=== PATIENT | female | born 1940 | race Caucasian/White ===

== ENCOUNTER 2017-09-05 13:03 | Inpatient (IN) | payer MEDICARE, OTHER, SELFPAY ==
[2017-09-05] VITALS (11 sets, daily range): BP systolic 165–192; BP diastolic 79–92; PULSE 75–103; RESP 13–20; TEMP 36.6–37; O2SAT 94–98; BMI 27.4; BMI 27.3; BMI 27.6
--- NOTE | 2017-09-05 13:37 | CT_ITS ---
STUDY: CT BRAIN WITHOUT CONTRAST REASON FOR EXAM: Female, 77 years old. Left-sided weakness. Stroke like symptoms. RADIATION DOSAGE (If Supplied By Facility): CTDIvol = ( 44.99 ) mGy, DLP = ( 762.36 ) mGycm TECHNIQUE: Transaxial CT imaging of the brain was performed without administration of intravenous contrast material. Individualized dose optimization techniques were used for this CT. COMPARISON: None. FINDINGS: Normal soft tissue structures. There is hyperostosis frontalis internus. There is mild cerebral atrophy with widening of the extra-axial spaces and ventricular dilatation. Normal white matter tracts of the cerebral hemispheres. Normal basal ganglia and thalami. Normal brainstem. Normal cerebellum. There is no intracranial hemorrhage. There are no findings of an acute ischemic infarction. Normal visualized paranasal sinuses. CT/Brain/Head without Contrast IMPRESSION: Chronic involutional changes of the brain. Electronically Signed: Jake Wayne MD at 14:30 EDT Tel [phone], Service support ,
--- NOTE | 2017-09-05 13:37 | EKG12_ITS ---
Test Reason : BLEEDING Blood Pressure : / mmHG Vent. Rate : 096 BPM Atrial Rate : 096 BPM P-R Int : 172 ms QRS Dur : 094 ms QT Int : 358 ms P-R-T Axes : 062 004 054 degrees QTc Int : 452 ms Sinus rhythm with Premature atrial complexes Inferior infarct , age undetermined Abnormal ECG Confirmed by LEANDER ATKINSON ([id number]), food editor MICHAEL RUBALCAVA ([id number]) on 09/08/2017 10:24:10 AM Referred By: MINNIE Confirmed By:LEANDER ATKINSON
--- NOTE | 2017-09-05 13:46 | NURSING ---
NO OLD EKGS
[2017-09-05 13:55] LABS: Bedside Glucose 205 mg/dL (70-110)
[2017-09-05 14:02] LABS: Absolute Lymphocyte Count 0.78 X10^3/ul (0.83-4.51); Absolute Neutrophil Count 8.1 X10^3/uL (2.0-7.7); Basophil# 0.01 X10^3/uL; Basophil% 0.1 % (0-1); Hematocrit 42.1 % (37-47); Hemoglobin 14.3 g/dl (12.0-15.0); Lymphocyte # 0.78 X10^3/ul (4.0); Lymphocyte % 8.7 % (19-41); Mean Corpuscular Hgb 29.3 pg (27.0-32.0); Mean Corpuscular Volume 86.3 fL (81-99); Mean Platelet Vol. 9.9 fl (6.2-12.0); Monocyte# 0.11 X10^3/uL; Monocyte% 1.2 % (0-10); Neutrophil # 8.05 X10^3/uL (2.7-7.7); Neutrophil % 89.8 % (47-70); Platelet Count 362 K/mm3 (150-450); RBC Distribution Width CV 12.6 % (11.6-14.6); RBC Distribution Width SD 39.1 fl (35.1-43.9); Red Blood Count 4.88 M/mm3 (4.2-5.4)
[2017-09-05 14:03] LABS: POSITIVE COUNT NO; POSITIVE DIFFERENTIAL NO; POSITIVE MORPHOLOGY NO
[2017-09-05 14:10] LABS: Prothrombin Time (Protime)PT. 13.5 SECONDS (11.7-14.9)
[2017-09-05 14:11] LABS: Partial Thromboplast Time 28.2 Seconds (24.1-36.2)
[2017-09-05 14:25] LABS: Anion Gap 9 (5-15); BUN 19 mg/dL (7-18); BUN/Creat Ratio 19.9 RATIO (10-20); Calcium,Total 9.2 mg/dL (8.5-10.1); Chloride 109 mmol/L (98-107); Creatinine, Serum 0.96 mg/dL (0.55-1.02); EST Glomerular Filtration Rate 60 mL/min (>60); Est Glom Filt Rate - Afr Amer 73 mL/min (>60); Estimated Creatinine Clearance 43.05 ml/min; Glucose 196 mg/dL (74-106); Potassium 3.1 mmol/L (3.5-5.1); Sodium Level 141 mmol/L (136-145)
--- NOTE | 2017-09-05 14:29 | ED.VISSUMM ---
- ER Visit Summary Date of Service: 09/05/17 Chief Complaint: Brain bleeding History of Present Illness: The patient is a 77 F who tells me that she has bleeding in her brain. One week ago she started with left-sided numbness. She denied any slurred speech, facial droop or weakness of any of her extremities. She saw her PCP as an outpatient who ordered an MRI. This was completed this morning. They called her and told her that she had brain bleeding that she needed to go to the emergency department. She still has some numbness on the left-hand side. She does take a baby aspirin daily. Physical Examination: Vital signs reviewed. HEENT exam unremarkable. Heart is regular rate and rhythm without murmurs. Lungs are clear to auscultation. Abdomen is soft and nontender. Extremities reveal no edema. Skin exam normal. Neurologic exam shows decreased sensation of the left side. Her NIH stroke scale equals 1 for the sensation deficits. Test Results: He is normal sinus rhythm with rate of 96. No ST changes. CT of the head is chronic. Labs are unremarkable. Emergency Department Course and Treatment: I was able to receive the report of the MRI. It actually shows a right thalamic infarct. There is no bleed. I discussed this with neurology. He states the patient needs an MRA of the head and neck. Patient was discussed with the hospitalist for admission. Treatment Plan: [] Disposition: Admit Impression: Acute right thalamic infarct This note was generated with [employer] dictation software. It may contain incorrect words, spelling, and punctuation that were not noted in review of the chart prior to signing ED Disposition - Plan for ED Patient: Chief Complaint: General Illness Referrals: [facility] Doctor,Out of [NON-STAFF] -
--- NOTE | 2017-09-05 15:09 | NURSING ---
NEUROLOGY IN ROOM
--- NOTE | 2017-09-05 15:25 | NURSING ---
PCU ACUTE RIGHT THALAMIC INFARCT TIMOTHY
--- NOTE | 2017-09-05 15:36 | PCM.CONS.GEN ---
Problem List (1) Stroke Status: Acute Qualifiers: CVA mechanism: thrombosis Precerebral and cerebral artery: posterior cerebral artery Laterality of affected vessel: right Qualified Code(s): I63.331 - Cerebral infarction due to thrombosis of right posterior cerebral artery (2) Numbness Status: Acute Reason for Consult Date of Consultation: 09/05/17 Reason for Consultation: Stroke History of Present Illness: The patient is a 77 year old CF with PMH HTN, HLD (was on niacin in the past) admitted with left sided numbness. Per patient her left sided numbness started about 5 days ago, went to the machine tool operator who sees her for BP issues, ordered MRI brain, which was done today (09/05/17) at [facility] and reported to show acute right thalamic infarct (images not available for review). Per patient she had Carotid ultrasound and TTE done this morning at [facility] but the report of the same are not available. At present per patient her left sided numbness has been getting better, denies any focal motor weakness, visual disturbances, but does complaint of frontal HARMAN which was has been persistent for the last few days, denies any vision loss, temporal tenderness or jaw claudication. Takes ASA at home daily. Denies any neck pain, lower back pain or radicular symptoms. Denies any falls, denies any balance issue, does not use cane or walker to ambulate, does not need assistance for his ADLs, and does drive. [] Past Medical History Allergies shellfish derived Allergy (Verified 09/05/17 13:09) Swelling Home Medications: Ambulatory Orders Medication Instructions Recorded Aspirin [Aspir-Low] 81 mg PO DAILY 09/05/17 Irbesartan [Avapro] 300 mg PO DAILY 09/05/17 Metoprolol Tartrate [Lopressor 25 mg PO DAILY 09/05/17 (beta valery)] Lives: Spouse/ Significant Other Smoking Status: Never smoker Alcohol: None Drugs: None Review of Systems Constitutional: Reports: - - complete ROS negative except as documented in HPI Patient Problems: Active and Suspected Problems Stroke (Acute) Numbness (Acute) - Physical Exam General: Alert HEENT: Normocephalic Neck: Supple Lungs: Clear to auscultation Cardiovascular: Normal S1, Normal S2 Abdomen: Bowel Sounds Present Extremities: No cyanosis Skin: No rashes Musculoskeletal: No Tenderness to Palpation of Joints or Extremities Neurological: - - consious, alert, CN 2-12 grossly intact except left facial mild sensory loss, power 5/5 all 4 extremities, mild sensory loss to the left side on light touch/temperature, no cerebellar signs, gait deferred, Reflexes + B/L B/S/T/K/A, NIHSS 2 at present, mRS 0 at baseline. Vital Signs Temp Pulse Resp BP Pulse Ox 98.4 F 83 14 186/92 H 94 09/05/17 13:07 09/05/17 15:27 09/05/17 15:27 09/05/17 15:27 09/05/17 15:27 Oxygen Flow Rate (L/min) 2 Oxygen Delivery Method Room Air Weight: 72.575 kg Body Mass Index (BMI) 27.4 Finger Stick Blood Glucose 205 Laboratory Tests Past 24 Hrs 09/05/17 09/05/17 09/05/17 13:50 13:50 13:50 WBC 9.0 RBC 4.88 Hgb 14.3 Hct 42.1 MCV 86.3 MCH 29.3 MCHC 34.0 RDW 12.6 RDW Differential 39.1 Plt Count 362 MPV 9.9 Immature Gran % (Auto) 0.200 Neut % (Auto) 89.8 H Lymph % (Auto) 8.7 L [place] % (Auto) 1.2 Eos % (Auto) 0.0 Baso % (Auto) 0.1 Absolute Neuts (auto) 8.1 H Absolute Lymphs (auto) 0.78 L Total Counted Not Reportable PT 13.5 INR 1.0 APTT 28.2 Sodium 141 Potassium 3.1 L Chloride 109 H Carbon Dioxide 23.0 Anion Gap 9 BUN 19 H Creatinine 0.96 Estim Creat Clear Calc 43.05 Est GFR (MDRD) Af Amer 73 Est GFR (MDRD) Non-Af 60 BUN/Creatinine Ratio 19.9 Glucose 196 H Calcium 9.2 Troponin I < 0.015 POC Glucose 09/05/17 13:50 POC Glucose 205 H Assessment/Plan All Active Problems Stroke (Acute) Numbness (Acute) The patient is a 77 year old CF with PMH HTN, HLD (was on niacin in the past) admitted with left sided numbness. Per patient her left sided numbness started about 5 days ago, went to the machine tool operator who sees her for BP issues, ordered MRI brain, which was done today (09/05/17) at [facility] and reported to show acute right thalamic infarct (images not available for review). Per patient she had Carotid ultrasound and TTE done this morning at [facility] but the report of the same are not available. At present per patient her left sided numbness has been getting better, denies any focal motor weakness, visual disturbances, but does complaint of frontal HARMAN which was has been persistent for the last few days, denies any vision loss, temporal tenderness or jaw claudication. Takes ASA at home daily. Denies any neck pain, lower back pain or radicular symptoms. Denies any falls, denies any balance issue, does not use cane or walker to ambulate, does not need assistance for his ADLs, and does drive. Impression Acute Right Thalamic stroke Plan -On ASA 81 mg PO once daily. Add Plavix 75 mg PO once daily. Dual AP for 3 weeks, then switch to single AP. Bleeding risks discussed in detail with the patient -Recommend Lipitor 80 mg PO q hs -Recommend MRA head/neck -Obtain TTE and Carotid ultrasound results from [facility] -Recommend LDL and Hba1c -Permissive HTN till vessel imaging is obtained -[facility] goal BP < 130/80 mmHg and Goal Hba1c < 7% -Stroke risk factors discussed and stroke education provided -Frequent neuro checks -Patient to be admitted to PCU -Further medical care per primary team. -PT/OT -GI/DVT prophylaxis -Fall precautions -Follow up with Neurology as outpatient in 2 weeks after discharge -Please call with questions -Thank you for allowing us to participate in patient's care and management I spent 60 minutes of critical care time taking history, doing physical examination, reviewing medical records, coordinating care and counseling the patient. Code Visit Inpatient E&M: 00467 Init Hosp L3
--- NOTE | 2017-09-05 15:47 | CON.PCM_ITS ---
Problem List (1) Stroke Status: Acute Qualifiers: CVA mechanism: thrombosis Precerebral and cerebral artery: posterior cerebral artery Laterality of affected vessel: right Qualified Code(s): I63.331 - Cerebral infarction due to thrombosis of right posterior cerebral artery (2) Numbness Status: Acute Reason for Consult Date of Consultation: 09/05/17 Reason for Consultation: Stroke History of Present Illness: The patient is a 77 year old CF with PMH HTN, HLD (was on niacin in the past) admitted with left sided numbness. Per patient her left sided numbness started about 5 days ago, went to the rug inspector helper who sees her for BP issues, ordered MRI brain, which was done today (09/05/17) at [facility] and reported to show acute right thalamic infarct (images not available for review). Per patient she had Carotid ultrasound and TTE done this morning at [facility] but the report of the same are not available. At present per patient her left sided numbness has been getting better, denies any focal motor weakness, visual disturbances, but does complaint of frontal HARMAN which was has been persistent for the last few days, denies any vision loss, temporal tenderness or jaw claudication. Takes ASA at home daily. Denies any neck pain, lower back pain or radicular symptoms. Denies any falls, denies any balance issue, does not use cane or walker to ambulate, does not need assistance for his ADLs, and does drive. [] Past Medical History Allergies shellfish derived Allergy (Verified 09/05/17 13:09) Swelling Home Medications: Ambulatory Orders Medication Instructions Recorded Aspirin [Aspir-Low] 81 mg PO DAILY 09/05/17 Irbesartan [Avapro] 300 mg PO DAILY 09/05/17 Metoprolol Tartrate [Lopressor 25 mg PO DAILY 09/05/17 (beta valery)] Lives: Spouse/ Significant Other Smoking Status: Never smoker Alcohol: None Drugs: None Review of Systems Constitutional: Reports: - - complete ROS negative except as documented in HPI Patient Problems: Active and Suspected Problems Stroke (Acute) Numbness (Acute) - Physical Exam General: Alert HEENT: Normocephalic Neck: Supple Lungs: Clear to auscultation Cardiovascular: Normal S1, Normal S2 Abdomen: Bowel Sounds Present Extremities: No cyanosis Skin: No rashes Musculoskeletal: No Tenderness to Palpation of Joints or Extremities Neurological: - - consious, alert, CN 2-12 grossly intact except left facial mild sensory loss, power 5/5 all 4 extremities, mild sensory loss to the left side on light touch/temperature, no cerebellar signs, gait deferred, Reflexes + B/L B/S/T/K/A, NIHSS 2 at present, mRS 0 at baseline. Vital Signs Temp Pulse Resp BP Pulse Ox 98.4 F 83 14 186/92 H 94 09/05/17 13:07 09/05/17 15:27 09/05/17 15:27 09/05/17 15:27 09/05/17 15:27 Oxygen Flow Rate (L/min) 2 Oxygen Delivery Method Room Air Weight: 72.575 kg Body Mass Index (BMI) 27.4 Finger Stick Blood Glucose 205 Laboratory Tests Past 24 Hrs 09/05/17 09/05/17 09/05/17 13:50 13:50 13:50 WBC 9.0 RBC 4.88 Hgb 14.3 Hct 42.1 MCV 86.3 MCH 29.3 MCHC 34.0 RDW 12.6 RDW Differential 39.1 Plt Count 362 MPV 9.9 Immature Gran % (Auto) 0.200 Neut % (Auto) 89.8 H Lymph % (Auto) 8.7 L [place] % (Auto) 1.2 Eos % (Auto) 0.0 Baso % (Auto) 0.1 Absolute Neuts (auto) 8.1 H Absolute Lymphs (auto) 0.78 L Total Counted Not Reportable PT 13.5 INR 1.0 APTT 28.2 Sodium 141 Potassium 3.1 L Chloride 109 H Carbon Dioxide 23.0 Anion Gap 9 BUN 19 H Creatinine 0.96 Estim Creat Clear Calc 43.05 Est GFR (MDRD) Af Amer 73 Est GFR (MDRD) Non-Af 60 BUN/Creatinine Ratio 19.9 Glucose 196 H Calcium 9.2 Troponin I < 0.015 POC Glucose 09/05/17 13:50 POC Glucose 205 H Assessment/Plan All Active Problems Stroke (Acute) Numbness (Acute) The patient is a 77 year old CF with PMH HTN, HLD (was on niacin in the past) admitted with left sided numbness. Per patient her left sided numbness started about 5 days ago, went to the rug inspector helper who sees her for BP issues, ordered MRI brain, which was done today (09/05/17) at [facility] and reported to show acute right thalamic infarct (images not available for review). Per patient she had Carotid ultrasound and TTE done this morning at [facility] but the report of the same are not available. At present per patient her left sided numbness has been getting better, denies any focal motor weakness, visual disturbances, but does complaint of frontal HARMAN which was has been persistent for the last few days, denies any vision loss, temporal tenderness or jaw claudication. Takes ASA at home daily. Denies any neck pain, lower back pain or radicular symptoms. Denies any falls, denies any balance issue, does not use cane or walker to ambulate, does not need assistance for his ADLs, and does drive. Impression Acute Right Thalamic stroke Plan -On ASA 81 mg PO once daily. Add Plavix 75 mg PO once daily. Dual AP for 3 weeks , then switch to single AP. Bleeding risks discussed in detail with the patient -Recommend Lipitor 80 mg PO q hs -Recommend MRA head/neck -Obtain TTE and Carotid ultrasound results from [facility] -Recommend LDL and Hba1c -Permissive HTN till vessel imaging is obtained -retirement goal BP < 130/80 mmHg and Goal Hba1c < 7% -Stroke risk factors discussed and stroke education provided -Frequent neuro checks -Patient to be admitted to PCU -Further medical care per primary team. -PT/OT -GI/DVT prophylaxis -Fall precautions -Follow up with Neurology as outpatient in 2 weeks after discharge -Please call with questions -Thank you for allowing us to participate in patient's care and management I spent 60 minutes of critical care time taking history, doing physical examination, reviewing medical records, coordinating care and counseling the patient. Code Visit Inpatient E&M: [id number] Init Hosp L3
--- NOTE | 2017-09-05 15:57 | MRI_ITS ---
STUDY: MRA NECK WITH AND WITHOUT CONTRAST REASON FOR EXAM: Female, 77 years old. Left-sided weakness TECHNIQUE: 3-D [id number] (TOF) imaging was performed in an 1.5 T MRI scanner. 7 ml of Gadavist was administered for the contrast enhanced images. COMPARISON: None. FINDINGS: RIGHT CAROTID ARTERIES: Normal right common carotid artery (CCA). Normal right common carotid bulb. Normal origin of the right internal carotid (ICA) artery without a hemodynamically significant stenosis. Normal visualized cervical portion of the right internal carotid artery. Normal origin of the right external carotid artery (ECA). LEFT CAROTID ARTERIES: Normal left common carotid artery (CCA). Normal left common carotid bulb. Normal origin of the left internal carotid (ICA) artery without a hemodynamically significant stenosis. Normal visualized cervical portion of the left internal carotid artery. Normal origin of the left external carotid artery (ECA). VERTEBRAL ARTERIES: Normal antegrade flow within the bilateral vertebral artery without a hemodynamically significant stenosis. MRI/MRA Neck WITH and W/O Contrast IMPRESSION: Normal bilateral cervical carotid and vertebral arteries. Electronically Signed: Manuel Gibson MD at 18:39 EDT , Service support ,
--- NOTE | 2017-09-05 15:57 | MRI_ITS ---
STUDY: MRA OF THE HEAD WITHOUT CONTRAST REASON FOR EXAM: Female, 77 years old. Left-sided weakness TECHNIQUE: 3-D [id number] (TOF) imaging was performed with MIPs. The study was performed unenhanced. COMPARISON: None. FINDINGS: Normal bilateral petrous carotid arteries. Mild plaquing of the right cavernous carotid artery with a normal supraclinoid bifurcation. Mild plaquing of the left cavernous carotid artery with a normal supraclinoid bifurcation. Severely diffusely narrowed right A1 segments of the anterior cerebral artery. Normal left A1 segments of the anterior cerebral artery. Normal intact anterior communicating artery (ACOM). Normal bilateral A2 segments of the anterior cerebral arteries. On the reconstructed images, there appears to be occlusion of the right middle cerebral artery at the distal M2 segment however this appears to be patent on the source images and is artifact Normal right M1 and M2 segments of the middle cerebral arteries, with a normal M1 bifurcation. Normal left M1 and M2 segments of the middle cerebral arteries, with a normal M1 bifurcation. Right posterior communicating artery not visualized consistent with normal variant). Left posterior communicating artery not visualized consistent with normal variant Normal bilateral vertebral arteries. Normal basilar artery with a normal basilar bifurcation. The visualized bilateral superior cerebellar (SCA) arteries are normal. Normal bilateral P1, P2 and visualized P3 segments of the posterior cerebral arteries. There is no demonstrated aneurysm of the [place]. There is no major vessel occlusion or hemodynamically significant stenosis. There is no demonstrated abnormality of the visualized brain. MRI/MRA Head ONLY without Contrast IMPRESSION: Severely narrowed A1 segment of right anterior cerebral artery.. No other significant atherosclerotic disease Electronically Signed: Manuel Gibson MD at 19:49 EDT , Service support ,
--- NOTE | 2017-09-05 15:58 | MRI_ITS ---
STUDY: MRI BRAIN WITHOUT CONTRAST REASON FOR EXAM: Female, 77 years old. Left-sided weakness TECHNIQUE: Standardized multiplanar fat and water weighted pulse sequences were obtained. COMPARISON: CT of the brain on September 05, 2017 FINDINGS: Mild atrophy and periventricular white matter ischemic changes without mass effect or restricted diffusion. There is an old lacunar infarct in left basal ganglia. There is gliosis in the posterior limb of the right internal capsule demonstrating restricted diffusion consistent with acute ischemic changes. . Normal thalami. There is no extra-axial fluid accumulation. There appears to be a small extradural nodule high in the right frontal parietal region possibly representing meningioma Normal flow voids within the major intracranial circulation suggesting patency by spin echo criteria. Normal sella turcica, pituitary gland, infundibular stalk, optic chiasm and hypothalamus. Normal tectal plate and pineal gland. Normal midbrain, reyes and medulla. Normal cerebellum. Normal basal cisterns. Normal bilateral temporal bones. Normal bilateral internal auditory canals. There is fluid signal within the right mastoid air cells consistent with inflammatory disease No demonstrated orbital abnormality, within the constraints of a routine brain study. There is mucosal thickening of the maxillary sinuses and ethmoid air cells bilaterally. Normal calvarium and skull base. Normal visualized soft tissue structures. Normal visualized upper cervical spine. MRI/Brain without Contrast IMPRESSION: Mild periventricular white matter ischemic changes. . Findings consistent with acute ischemic infarct in the posterior limb of the right internal capsule. Question small meningioma high in the right frontal parietal convexity. This may be further assessed with contrast-enhanced study if clinically warranted Electronically Signed: Manuel Gibson MD at 18:45 EDT , Service support ,
--- NOTE | 2017-09-05 16:29 | NURSING ---
PCU STROKE IMAMURA
--- NOTE | 2017-09-05 16:32 | PCM.HP.STD ---
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 Patient is a 77 years old WF with history of HTN, presents with left sided numbness, admitted on 09/05/17. She had sudden onset of ascending numbness from feet to head in the afternoon of 08/31/17. She had seen her gauger chief delivery in [place], who ordered MRI which was done on 09/05/17 at [facility]. The report showed right thalamic lacunar infarct. Since then, numbness are gradually improving. She had difficulty walking on the first day due to complete numbness of foot, but she denied of any motor deficit otherwise. She denied of any chest pain, dizziness, headache, or loss of balance. Past Medical History Allergies shellfish derived Allergy (Verified 09/05/17 13:09) Swelling Home Medications: Ambulatory Orders Medication Instructions Recorded Aspirin [Aspir-Low] 81 mg PO DAILY 09/05/17 Irbesartan [Avapro] 300 mg PO DAILY 09/05/17 Metoprolol Tartrate [Lopressor 25 mg PO DAILY 09/05/17 (beta valery)] Surgical History: - - Trigger finger surgery bilaterally for thumbs. Lives: Spouse/ Significant Other Smoking Status: Never smoker Alcohol: None Drugs: None - *Family History Maternal History Items: No pertinent history Review of Systems Comment: ROS: In general: Patient has been in good health, denied of any constitutional symptoms, such as weight loss, or gain, fever, chills, or night sweats. Patient denied of any profound fatigue. HEENT: Unremarkable. Patient denied of any dizziness, chronic headache, blurred vision, double vision, dry mouth, or nasal congestion. CV/respiratory: There is no exertional shortness of breath, chest pain, palpitation, wheezing, cough, claudication, cold feet, or peripheral edema. GI: Patient denied any abdominal pain, nausea, vomiting, diarrhea, constipation, melena, or hematochezia. : Patient denied any significant urinary symptoms. Neurology: See HPI. No history of seizure. Psychological: Unremarkable. No depressed mood or suicidal ideation. No hallucinations. Endocrine: Unremarkable. Musculoskeletal: Unremarkable. No muscular wasting, chronic musculoskeletal pain, persisting joint pain, or focal muscular weakness. VTE Information - Inpt Only VTE Present on Admission: No VTE Mechan Device Prophylaxis: Knee High PAUL Hose VTE Pharm Prophylaxis ordered?: Yes Patient Problems: Active and Suspected Problems Stroke (Acute) Numbness (Acute) Left hemiparesis (Acute) Essential hypertension, benign (Acute) History of poliomyelitis (Acute) Objective: In general, patient is a well-nourished and developed adult. HEENT: Head is atraumatic, and normocephalic. Pupils are equal, round, and reactive to light and accommodations. Neck is supple. There is no lymphadenopathy, or thyromegaly. Oral mucosa is pink, and moist. There are no lesions. Heart: Auscultation is normal with regular rhythm and rate. There is no extra heart sounds, or murmurs. S1 and S2 are present. Point of maximal impulse is not displaced. Lungs: Lungs are clear to auscultation bilaterally. There is no wheezing, or crackles. Abdomen: Abdominal wall is non-tender, and non-distended. There is no palpable mass or organomegaly. Normoactive bowel sounds are present. Extremities: There is no cyanosis or clubbing. Peripheral pulses are palpable. There is no edema. Skin: There are no any skin discoloration or lesions. Neurological: CN II - XII are intact. 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 Mild decrease in sensation on left side. Cerebellar functions are within normal range. Gait was not tested. - Physical Exam Vital Signs Temp Pulse Resp BP Pulse Ox 98.4 F 83 14 186/92 H 94 09/05/17 13:07 09/05/17 15:27 09/05/17 15:27 09/05/17 15:27 09/05/17 15:27 Oxygen Flow Rate (L/min) 2 Oxygen Delivery Method Room Air Weight: 159 lb 13.362 oz Body Mass Index (BMI) 27.3 Finger Stick Blood Glucose 205 Laboratory Tests Past 24 Hrs 09/05/17 09/05/17 09/05/17 13:50 13:50 13:50 WBC 9.0 RBC 4.88 Hgb 14.3 Hct 42.1 MCV 86.3 MCH 29.3 MCHC 34.0 RDW 12.6 RDW Differential 39.1 Plt Count 362 MPV 9.9 Immature Gran % (Auto) 0.200 Neut % (Auto) 89.8 H Lymph % (Auto) 8.7 L [place] % (Auto) 1.2 Eos % (Auto) 0.0 Baso % (Auto) 0.1 Absolute Neuts (auto) 8.1 H Absolute Lymphs (auto) 0.78 L Total Counted Not Reportable PT 13.5 INR 1.0 APTT 28.2 Sodium 141 Potassium 3.1 L Chloride 109 H Carbon Dioxide 23.0 Anion Gap 9 BUN 19 H Creatinine 0.96 Estim Creat Clear Calc 43.05 Est GFR (MDRD) Af Amer 73 Est GFR (MDRD) Non-Af 60 BUN/Creatinine Ratio 19.9 Glucose 196 H Hemoglobin A1c Calcium 9.2 Troponin I < 0.015 Triglycerides Cholesterol LDL Cholesterol VLDL Cholesterol HDL Cholesterol 09/05/17 09/05/17 13:50 13:50 WBC RBC Hgb Hct MCV MCH MCHC RDW RDW Differential Plt Count MPV Immature Gran % (Auto) Neut % (Auto) Lymph % (Auto) [place] % (Auto) Eos % (Auto) Baso % (Auto) Absolute Neuts (auto) Absolute Lymphs (auto) Total Counted PT INR APTT Sodium Potassium Chloride Carbon Dioxide Anion Gap BUN Creatinine Estim Creat Clear Calc Est GFR (MDRD) Af Amer Est GFR (MDRD) Non-Af BUN/Creatinine Ratio Glucose Hemoglobin A1c Pending Calcium Troponin I Triglycerides Pending Cholesterol Pending LDL Cholesterol Pending VLDL Cholesterol Pending HDL Cholesterol Pending POC Glucose 09/05/17 13:50 POC Glucose [address] Data Brain CT 09/05/17 13:37 IMPRESSION: Chronic involutional changes of the brain. Electronically Signed: Jake [facility] MD at 14:30 EDT Tel [phone], Service support , Assessment/Plan All Active Problems Stroke (Acute) Numbness (Acute) Left hemiparesis (Acute) Essential hypertension, benign (Acute) History of poliomyelitis (Acute) Patient is a 77 years old WF with history of HTN, presents with left sided numbness, admitted on 09/05/17. She had sudden onset of ascending numbness from feet to head in the afternoon of 08/31/17. She had seen her gauger chief delivery in [place], who ordered MRI which was done on 09/05/17 at [facility]. The report showed right thalamic lacunar infarct. Since then, numbness are gradually improving. She had difficulty walking on the first day due to complete numbness of foot, but she denied of any motor deficit otherwise. She denied of any chest pain, dizziness, headache, or loss of balance. #1 CVA. Right thalamic stroke. With left hemiparesthesia. She was taking aspirin already. Plavix added, continue dual-antiplatelet tx for 3 weeks. MRI with DWI / ADC. MRA brain / neck. Obtain record of u/s and echo from [place]. Permissive hypertension for now. PT/OT/ST consult. #2 Essential hypertension. See above. #3 Hyperlipidemia. Lipitor was started. #4 History of polio. VTE ppx: heparin SQ. GI ppx. PPI po. She is full code. Disposition: Home in 2 to 3 days. Code Visit Inpatient E&M: 45398 Init Hosp L3
[2017-09-05 16:47] LABS: Cholesterol 228 mg/dL (200); High Density Lipoprotein 50 mg/dL; Triglycerides 118 mg/dL; Very Low Density Lipoprotein 24 mg/dL (5-40)
--- NOTE | 2017-09-05 16:50 | HP.PCM_ITS ---
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 Patient is a 77 years old WF with history of HTN, presents with left sided numbness, admitted on 09/05/17. She had sudden onset of ascending numbness from feet to head in the afternoon of 08/31/17. She had seen her senior cisco network engineer in [place], who ordered MRI which was done on 09/05/17 at [facility]. The report showed right thalamic lacunar infarct. Since then, numbness are gradually improving. She had difficulty walking on the first day due to complete numbness of foot, but she denied of any motor deficit otherwise. She denied of any chest pain, dizziness, headache, or loss of balance. Past Medical History Allergies shellfish derived Allergy (Verified 09/05/17 13:09) Swelling Home Medications: Ambulatory Orders Medication Instructions Recorded Aspirin [Aspir-Low] 81 mg PO DAILY 09/05/17 Irbesartan [Avapro] 300 mg PO DAILY 09/05/17 Metoprolol Tartrate [Lopressor 25 mg PO DAILY 09/05/17 (beta valery)] Surgical History: - - Trigger finger surgery bilaterally for thumbs. Lives: Spouse/ Significant Other Smoking Status: Never smoker Alcohol: None Drugs: None - *Family History Maternal History Items: No pertinent history Review of Systems Comment: ROS: In general: Patient has been in good health, denied of any constitutional symptoms, such as weight loss, or gain, fever, chills, or night sweats. Patient denied of any profound fatigue. HEENT: Unremarkable. Patient denied of any dizziness, chronic headache, blurred vision, double vision, dry mouth, or nasal congestion. CV/respiratory: There is no exertional shortness of breath, chest pain, palpitation, wheezing, cough, claudication, cold feet, or peripheral edema. GI: Patient denied any abdominal pain, nausea, vomiting, diarrhea, constipation, melena, or hematochezia. : Patient denied any significant urinary symptoms. Neurology: See HPI. No history of seizure. Psychological: Unremarkable. No depressed mood or suicidal ideation. No hallucinations. Endocrine: Unremarkable. Musculoskeletal: Unremarkable. No muscular wasting, chronic musculoskeletal pain, persisting joint pain, or focal muscular weakness. VTE Information - Inpt Only VTE Present on Admission: No VTE Mechan Device Prophylaxis: Knee High PAUL Hose VTE Pharm Prophylaxis ordered?: Yes Patient Problems: Active and Suspected Problems Stroke (Acute) Numbness (Acute) Left hemiparesis (Acute) Essential hypertension, benign (Acute) History of poliomyelitis (Acute) Objective: In general, patient is a well-nourished and developed adult. HEENT: Head is atraumatic, and normocephalic. Pupils are equal, round, and reactive to light and accommodations. Neck is supple. There is no lymphadenopathy, or thyromegaly. Oral mucosa is pink, and moist. There are no lesions. Heart: Auscultation is normal with regular rhythm and rate. There is no extra heart sounds, or murmurs. S1 and S2 are present. Point of maximal impulse is not displaced. Lungs: Lungs are clear to auscultation bilaterally. There is no wheezing, or crackles. Abdomen: Abdominal wall is non-tender, and non-distended. There is no palpable mass or organomegaly. Normoactive bowel sounds are present. Extremities: There is no cyanosis or clubbing. Peripheral pulses are palpable. There is no edema. Skin: There are no any skin discoloration or lesions. Neurological: CN II - XII are intact. 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 Mild decrease in sensation on left side. Cerebellar functions are within normal range. Gait was not tested. - Physical Exam Vital Signs Temp Pulse Resp BP Pulse Ox 98.4 F 83 14 186/92 H 94 09/05/17 13:07 09/05/17 15:27 09/05/17 15:27 09/05/17 15:27 09/05/17 15:27 Oxygen Flow Rate (L/min) 2 Oxygen Delivery Method Room Air Weight: 159 lb 13.362 oz Body Mass Index (BMI) 27.3 Finger Stick Blood Glucose 205 Laboratory Tests Past 24 Hrs 09/05/17 09/05/17 09/05/17 13:50 13:50 13:50 WBC 9.0 RBC 4.88 Hgb 14.3 Hct 42.1 MCV 86.3 MCH 29.3 MCHC 34.0 RDW 12.6 RDW Differential 39.1 Plt Count 362 MPV 9.9 Immature Gran % (Auto) 0.200 Neut % (Auto) 89.8 H Lymph % (Auto) 8.7 L [place] % (Auto) 1.2 Eos % (Auto) 0.0 Baso % (Auto) 0.1 Absolute Neuts (auto) 8.1 H Absolute Lymphs (auto) 0.78 L Total Counted Not Reportable PT 13.5 INR 1.0 APTT 28.2 Sodium 141 Potassium 3.1 L Chloride 109 H Carbon Dioxide 23.0 Anion Gap 9 BUN 19 H Creatinine 0.96 Estim Creat Clear Calc 43.05 Est GFR (MDRD) Af Amer 73 Est GFR (MDRD) Non-Af 60 BUN/Creatinine Ratio 19.9 Glucose 196 H Hemoglobin A1c Calcium 9.2 Troponin I < 0.015 Triglycerides Cholesterol LDL Cholesterol VLDL Cholesterol HDL Cholesterol 09/05/17 09/05/17 13:50 13:50 WBC RBC Hgb Hct MCV MCH MCHC RDW RDW Differential Plt Count MPV Immature Gran % (Auto) Neut % (Auto) Lymph % (Auto) [place] % (Auto) Eos % (Auto) Baso % (Auto) Absolute Neuts (auto) Absolute Lymphs (auto) Total Counted PT INR APTT Sodium Potassium Chloride Carbon Dioxide Anion Gap BUN Creatinine Estim Creat Clear Calc Est GFR (MDRD) Af Amer Est GFR (MDRD) Non-Af BUN/Creatinine Ratio Glucose Hemoglobin A1c Pending Calcium Troponin I Triglycerides Pending Cholesterol Pending LDL Cholesterol Pending VLDL Cholesterol Pending HDL Cholesterol Pending POC Glucose 09/05/17 13:50 POC Glucose [address] H Diagnostic Data Brain CT 09/05/17 13:37 IMPRESSION: Chronic involutional changes of the brain. Electronically Signed: Jake [facility] MD at 14:30 EDT Tel [phone], Service support , Assessment/Plan All Active Problems Stroke (Acute) Numbness (Acute) Left hemiparesis (Acute) Essential hypertension, benign (Acute) History of poliomyelitis (Acute) Patient is a 77 years old WF with history of HTN, presents with left sided numbness, admitted on 09/05/17. She had sudden onset of ascending numbness from feet to head in the afternoon of 08/31/17. She had seen her senior cisco network engineer in [place], who ordered MRI which was done on 09/05/17 at [facility]. The report showed right thalamic lacunar infarct. Since then, numbness are gradually improving. She had difficulty walking on the first day due to complete numbness of foot, but she denied of any motor deficit otherwise. She denied of any chest pain, dizziness, headache, or loss of balance. #1 CVA. Right thalamic stroke. With left hemiparesthesia. She was taking aspirin already. Plavix added, continue dual-antiplatelet tx for 3 weeks. MRI with DWI / ADC. MRA brain / neck. Obtain record of u/s and echo from [place]. Permissive hypertension for now. PT/OT/ST consult. #2 Essential hypertension. See above. #3 Hyperlipidemia. Lipitor was started. #4 History of polio. VTE ppx: heparin SQ. GI ppx. PPI po. She is full code. Disposition: Home in 2 to 3 days. Code Visit Inpatient E&M: 42265 Init Hosp L3
[2017-09-05 16:51] LABS: Hemoglobin A1c 5.6 % (4.2-6.3)
[2017-09-05] MEDS: Clopidogrel Bisulfate 75 MG Tablet PO (18:31)
[2017-09-05] MEDS: Aspirin E.C. 81 MG Tablet PO (18:32)
[2017-09-05] MEDS: Heparin Injection (Vial) 5,000 UNIT/ML VIAL 5000 UNIT SC (22:14)
[2017-09-05] MEDS: Atorvastatin Calcium 80 MG Tablet PO (22:14)
[2017-09-06] VITALS (7 sets, daily range): BP systolic 152–158; BP diastolic 81–102; PULSE 63–86; RESP 16; TEMP 36.7–37; O2SAT 97–99; BMI 27.6
[2017-09-06] MEDS: Heparin Injection (Vial) 5,000 UNIT/ML VIAL 5000 UNIT SC (05:03)
[2017-09-06 06:00] LABS: Prothrombin Time (Protime)PT. 13.4 SECONDS (11.7-14.9)
[2017-09-06 06:22] LABS: Anion Gap 6 (5-15); BUN 19 mg/dL (7-18); BUN/Creat Ratio 29.5 RATIO (10-20); Calcium,Total 8.5 mg/dL (8.5-10.1); Chloride 112 mmol/L (98-107); Cholesterol 184 mg/dL (200); Creatinine, Serum 0.64 mg/dL (0.55-1.02); EST Glomerular Filtration Rate 95 mL/min (>60); Est Glom Filt Rate - Afr Amer 115 mL/min (>60); Estimated Creatinine Clearance 41.33 ml/min; Glucose 92 mg/dL (74-106); High Density Lipoprotein 41 mg/dL; Potassium 3.8 mmol/L (3.5-5.1); Sodium Level 144 mmol/L (136-145); Triglycerides 156 mg/dL; Very Low Density Lipoprotein 31 mg/dL (5-40)
[2017-09-06] MEDS: Aspirin E.C. 81 MG Tablet PO (08:31)
[2017-09-06] MEDS: Pantoprazole Sodium 20 MG Tablet PO (09:25)
[2017-09-06] MEDS: Metoprolol Tartrate 25 MG Tablet PO (09:25)
[2017-09-06] MEDS: Losartan Potassium 100 MG Tablet PO (09:25)
[2017-09-06] MEDS: Clopidogrel Bisulfate 75 MG Tablet PO (09:25)
--- NOTE | 2017-09-06 09:55 | DCINST_ITS ---
- Discharge Diagnoses Current Active Problems: Current Active and Chronic Problems Stroke (Acute) Numbness (Acute) Left hemiparesis (Acute) Essential hypertension, benign (Acute) History of poliomyelitis (Acute) You will use the following diet at home:: Cardiac Discharge Activity: May Not Drive - Until approved by neurology at follow-up visit in 2 weeks. Call your doctor if you observe: Numbness or Tingling, Shortness of breath, Dizziness, Fainting spells, Chest pain Allergies/Adverse Reactions: Allergies shellfish derived Allergy (Verified 09/05/17 13:09) Swelling Medications to take at Discharge Aspirin [Aspir-Low] 81 mg PO DAILY 09/05/17 Irbesartan [Avapro] 300 mg PO DAILY 09/05/17 Atorvastatin Calcium [Lipitor] 80 mg PO QHS #30 tab 09/06/17 Clopidogrel Bisulfate [Plavix] 75 mg PO DAILY #30 tab 09/06/17 Metoprolol Tartrate [Lopressor (beta valery)] 25 mg PO DAILY #60 tab 09/06/17 The following prescriptions were given: Atorvastatin Calcium [Lipitor] 80 mg PO QHS #30 tab Clopidogrel Bisulfate [Plavix] 75 mg PO DAILY #30 tab Metoprolol Tartrate [Lopressor (beta valery)] 25 mg PO DAILY #60 tab Primary Care Physician: [facility] Doctor,Out of [NON-STAFF] - Please follow up with your Primary Care Physician in: 1 Week Please Follow Up With: Doretha Rosa MD When: 2 Weeks Proposed Discharge Date: 09/06/17
--- NOTE | 2017-09-06 10:02 | PCM.DC.SUM ---
Discharge Date and Diagnosis Date of Admission: 09/05/17 Date of Discharge: 09/06/17 - Primary Discharge Diagnosis Active and Suspected Problems 1. Acute ischemic right thalamic stroke 2. Hypertension 3. Hyperlipidemia 4. Hypokalemia, resolved - Secondary Discharge Diagnosis Hypertension Hospital Course and Treatment Imaging Results: Diagnostic Data Brain CT 09/05/17 13:37 IMPRESSION: Chronic involutional changes of the brain. Electronically Signed: Jake [facility] MD at 14:30 EDT Tel [phone], Service support , Head MRA 09/05/17 15:57 IMPRESSION: Severely narrowed A1 segment of right anterior cerebral artery.. No other significant atherosclerotic disease Electronically Signed: Manuel Gibson MD at 19:49 EDT , Service support , Neck MRA 09/05/17 15:57 IMPRESSION: Normal bilateral cervical carotid and vertebral arteries. Electronically Signed: Manuel Gibson MD at 18:39 EDT , Service support , Brain MRI 09/05/17 15:58 IMPRESSION: Mild periventricular white matter ischemic changes. . Findings consistent with acute ischemic infarct in the posterior limb of the right internal capsule. Question small meningioma high in the right frontal parietal convexity. This may be further assessed with contrast-enhanced study if clinically warranted Electronically Signed: Manuel Gibson MD at 18:45 EDT , Service support , Dr. Rosa- Neurology Operations: None Procedures: None Summary of Care Provided: The patient is a 77 year old F admitted 09/05/2017 due to left-sided numbness. She has a past medical history of hypertension, hyperlipidemia. Patient states she had initial onset of left-sided numbness 08/31/2017. An MRI was ordered as outpatient at outside facility which showed right thalamic lacunar infarct. Neurology consulted. MRI of brain repeated during admission which showed acute ischemic infarct in the posterior limb of the right internal capsule. Questionable small meningioma in the frontoparietal convexity. MRA of neck showed normal bilateral carotid and vertebral arteries. MRA of head showed severely narrowed A1 segment of right anterior cerebral artery. No other significant atherosclerotic disease. Patient will be discharged on aspirin 81 mg once daily, Plavix 75 mg once daily for 3 weeks and then switched to single antiplatelet therapy. Lipitor 80 mg nightly added to regimen. Hemoglobin A1c 5.6%. Patient will follow up with neurology as outpatient in 2 weeks. She was evaluated by PT and did not require any further rehab at [place]. Echocardiogram records obtained from outside facility which was completed 09/05/2017. Estimated ejection fraction 60-65%, no wall motion abnormalities. Grade 1 diastolic dysfunction. Mild 1+ aortic valve regurgitation, RVSP estimated to be 34 mmHg, mild tricuspid and pulmonic valve regurgitation. Carotid ultrasound completed at [facility] as well. Unable to obtain these records. Continue outpatient follow-up. Patient seen exam prior to discharge. Alert, oriented, no acute distress. Lungs clear. Heart rate regular rate and rhythm. Patient has mild residual numbness to left face, arm and leg to light touch. Strength 5 out of 5 all extremities. Neuro otherwise grossly intact. Abdomen soft, nontender. Skin intact. Normal affect. Vital signs stable. Patient is stable for discharge home with further follow-up with primary care physician in 1 week and neurology in 2 weeks. Instructed patient to monitor blood pressure daily at home and report findings to primary care physician for further monitoring of blood pressure. This patient was seen by DANDRE Delong under the supervision of Dr. Hendrickson. Discharge Diet: Low fat/ Low Cholesterol Discharge Activity: May Not Drive - Until approved by neurology at follow-up visit in 2 weeks. Call your doctor if you observe: Numbness or Tingling, Shortness of breath, Dizziness, Fainting spells, Chest pain Home Medications: Medications to take at Discharge Aspirin [Aspir-Low] 81 mg PO DAILY 09/05/17 Irbesartan [Avapro] 300 mg PO DAILY 09/05/17 Atorvastatin Calcium [Lipitor] 80 mg PO QHS #30 tab 09/06/17 Clopidogrel Bisulfate [Plavix] 75 mg PO DAILY #30 tab 09/06/17 Metoprolol Tartrate [Lopressor (beta valery)] 25 mg PO DAILY #60 tab 09/06/17 Following Prescrptions Were Given to Patient: Atorvastatin Calcium [Lipitor] 80 mg PO QHS #30 tab Clopidogrel Bisulfate [Plavix] 75 mg PO DAILY #30 tab Metoprolol Tartrate [Lopressor (beta valery)] 25 mg PO DAILY #60 tab Primary Care Physician: Aide Ashraf,Out of [NON-STAFF] - Please follow up with your Primary Care Physician in: 1 Week Please Follow Up With: Doretha Rosa MD When: 2 Weeks Disposition: Home Minutes spent on discharge:: 35 Patient Condition:: Stable Medical Necessity - Tobacco Use Smoking Status: Never smoker Tobacco Use: Non-smoker Meaningful Use Info Meaningful Use Diagnoses (Choose all that apply): Ischemic CVA - CVA Therapy Assessed for PT,OT and/or ST?: Yes - Ischemic Stroke Antithrombotic order at d/c?: Yes Dx of Atrial fib/flutter?: No Statins at discharge?: Yes Primary Dx Acute Ischemic CVA?: Yes IV tPA ordered during stay?: No Reason IV t-PA not ordered: Medical Contraindication
--- NOTE | 2017-09-06 10:15 | CASEMGMT ---
DARIEN FUENTES Face to Face with patient for initial transition planning/care coordination assessment. DARIEN FUENTES introduced self and role at [facility]. Patient lying in bed, alert and oriented. Patient willing to participate in assessment and is able to answer all questions appropriately. Care providers, pharmacy, and demographics verified. Patient states she lives in 1 story home with 2 steps to enter home, patient able to navigate stairs. Patient lives with . Patient states she has a cane at home. Patient wishes to discharge home, denies need for home health at this time. Patient states she has no further needs or concerns at this time. CM to follow for discharge planning needs that may arise. Disposition Plan: Patient to discharge home with family support and follow-up plans in place.
== END 2017-09-06 12:36 | disposition home or self-care (01) | DRG 66 ==
LOC: ED 15:11 → PCU 16:25
PROVIDERS: Psychiatry & Neurology Neurology; Admitting Provider Hospitalist; Emergency Provider Emergency Medicine; Family Provider Family Medicine; PCP Family Medicine; Visit Provider Family Medicine
DX: I63.9 Cerebral infarction, unspecified (principal); Z86.12 Personal history of poliomyelitis; E78.5 Hyperlipidemia, unspecified; I10 Essential (primary) hypertension; Z79.82 Long term (current) use of aspirin; E87.6 Hypokalemia; R20.2 Paresthesia of skin; R29.702 NIHSS score 2
CPT/HCPCS: 36415; 70450; 70544; 70549; 70551; 80048; 80061; 82962; 83036; 84484; 85025; 85610; 85730; 93005; 97162; 97166; 99282; A9585; A4216

== ENCOUNTER 2017-09-09 19:31 | Emergency (ER) | payer MEDICARE, OTHER, SELFPAY ==
[2017-09-09 19:32] VITALS: BP 146/71; PULSE 82; RESP 17; O2SAT 98
[2017-09-09 19:34] VITALS: BP 146/71; PULSE 84; RESP 18; TEMP 36.7; O2SAT 96; BMI 27.1
--- NOTE | 2017-09-09 20:14 | EKG12_ITS ---
Test Reason : DIARRHEA Blood Pressure : / mmHG Vent. Rate : 068 BPM Atrial Rate : 068 BPM P-R Int : 172 ms QRS Dur : 088 ms QT Int : 386 ms P-R-T Axes : 060 003 -03 degrees QTc Int : 410 ms Normal sinus rhythm Inferior infarct (cited on or before 05-SEP-2017) Abnormal ECG Confirmed by SAIGE GONZALES, KLAUS ([id number]), online content editor MICHAEL RUBALCAVA ([id number]) on 09/12/2017 8:57:02 AM Referred By: KATHIA Confirmed By:KLAUS MOULTON MD
[2017-09-09] MEDS: 0.9% Normal Saline 1,000 ML 1000 ML IV (20:40)
--- NOTE | 2017-09-09 20:41 | ED.VISSUMM ---
- ER Visit Summary Date of Service: 09/09/17 Chief Complaint: Diarrhea History of Present Illness: The patient is a [address] Brown. Patient was recently admitted to the hospital for a right thalamic stroke. She was discharged September 06 and was doing well until approximately 3:00 this afternoon. States that she has had approximately 10-12 episodes of watery diarrhea. No blood in her stools or black tarry stools. She has had nausea without vomiting. No abdominal pain. Patient reports the last episode she was sitting on the commode and became very lightheaded, nauseated, and diaphoretic. No chest pain, shortness of breath, or abdominal pain during this episode. She denies any abdominal pain now. Patient is asking if this could be due to the Lipitor that she was placed on while here. Patient has had sick contacts that she was recently hospitalized. Has not been camping out of the country. No possible bad food exposure. Does not drink well water. No recent antibiotic use. Physical Examination: Vitals: Stable. Afebrile. General: Well-nourished and well-developed. Head: Normocephalic atraumatic. Neck: Supple, no lymphadenopathy. No JVD. Nontender. Cardiovascular: Regular rate and rhythm. No murmurs. Respiratory: No respiratory distress. Clear to auscultation bilaterally. Abdominal: Soft, nontender, nondistended, normal bowel sounds. No guarding, rebound, or peritoneal signs. Back: Nontender. Extremities: Nontender, no edema. Skin: Normal color, no rash. Neurologic: Alert and oriented ?3. Cranial nerves II through XII are intact. Normal strength and sensation. Psych: Normal affect. Test Results: EKG is sinus at [address] changes. She does have a Q-wave in lead III. However, this is unchanged from September 05, 2017. Troponin is negative. Chem-7 is more for BUN of 19 and BUN/creatinine ratio 22.9. CBC is marked for white count of 12.173 segmented neutrophils and 18 lymphocytes. Hemoglobin is 15.3. Emergency Department Course and Treatment: Patient was given a liter bolus of normal saline. She is resting comfortably. She has been unable to give a stool sample. Treatment Plan: I did discuss the patient possibility that this is from her Lipitor. I have suggested that she not take this and see if the diarrhea resolves. She is instructed to follow-up Dr. Brown in 1-2 days if the diarrhea continues to be ruled out for C. difficile. Return to the emergency department for any worsening symptoms. Disposition: To home in improved and stable condition. Impression: 1. Diarrhea. 2. Vasovagal episode. This note was generated with [employer] dictation software. It may contain incorrect words, spelling, and punctuation that were not noted in review of the chart prior to signing ED Disposition - Plan for ED Patient: Disposition: Home or Assisted Living Chief Complaint: Diarrhea Instructions: ED Vomiting Diarrhea Nonspecific Ad Referrals: Mark Anthony Brown DO [Primary Care Provider] - 1-2 Days if not improving
[2017-09-09 20:53] LABS: Absolute Lymphocyte Count 2.12 X10^3/ul (0.83-4.51); Absolute Neutrophil Count 8.9 X10^3/uL (2.0-7.7); Basophil# 0.04 X10^3/uL; Basophil% 0.3 % (0-1); Eosinophil# 0.06 X10^3/uL; Eosinophils% 0.5 % (0-5); Hematocrit 44.7 % (37-47); Hemoglobin 15.3 g/dl (12.0-15.0); Lymphocyte # 2.12 X10^3/ul (4.0); Lymphocyte % 17.5 % (19-41); Mean Corp Hgb Conc 34.2 g/gl (32-36); Mean Corpuscular Hgb 29.8 pg (27.0-32.0); Mean Platelet Vol. 10.1 fl (6.2-12.0); Monocyte# 0.97 X10^3/uL; Neutrophil # 8.89 X10^3/uL (2.7-7.7); Neutrophil % 73.2 % (47-70); Platelet Count 356 K/mm3 (150-450); RBC Distribution Width CV 12.8 % (11.6-14.6); RBC Distribution Width SD 40.2 fl (35.1-43.9); Red Blood Count 5.14 M/mm3 (4.2-5.4); White Blood Count 12.1 K/mm3 (4.4-11.0)
[2017-09-09 20:55] LABS: POSITIVE COUNT NO; POSITIVE DIFFERENTIAL NO; POSITIVE MORPHOLOGY NO
[2017-09-09 21:09] LABS: Anion Gap 6 (5-15); BUN 19 mg/dL (7-18); BUN/Creat Ratio 22.9 RATIO (10-20); Calcium,Total 9.3 mg/dL (8.5-10.1); Chloride 103 mmol/L (98-107); Creatinine, Serum 0.83 mg/dL (0.55-1.02); EST Glomerular Filtration Rate 71 mL/min (>60); Est Glom Filt Rate - Afr Amer 86 mL/min (>60); Estimated Creatinine Clearance 49.79 ml/min; Glucose 106 mg/dL (74-106); Potassium 3.7 mmol/L (3.5-5.1); Sodium Level 137 mmol/L (136-145)
[2017-09-09 22:35] VITALS: BP 121/74; PULSE 91; RESP 20; O2SAT 99
--- NOTE | 2017-09-09 22:35 | ED.RN ---
THIS NURSE REVIEWED D/C INSTRUCTIONS WITH PT. PT VERBALIZED UNDERSTANDING OF INSTRUCTIONS. IV D/C. IV CATHETER INTACT. PT TOLERATED WELL. PT DENIES FURTHER NEEDS OR QUESTIONS AT THIS TIME. PT AMBULATES FROM ROOM ON OWN WITHOUT ASSISTANCE FROM STAFF
== END 2017-09-09 22:36 | disposition home or self-care (01) ==
LOC: ED 20:48
PROVIDERS: Emergency Provider Emergency Medicine; Family Provider Family Medicine; PCP Family Medicine
DX: R19.7 Diarrhea, unspecified (principal); R55 Syncope and collapse; I10 Essential (primary) hypertension; R05 Cough; Z79.02 Long term (current) use of antithrombotics/antiplatelets; Z79.82 Long term (current) use of aspirin; Z79.899 Other long term (current) drug therapy; Z86.73 Personal history of transient ischemic attack (TIA), and cerebral infarction without residual deficits; Z86.12 Personal history of poliomyelitis
CPT/HCPCS: 80048; 84484; 85025; 93005; 99283; J7030; A4216

== ENCOUNTER → 2017-10-28 12:45 | Outpatient (CLI) | payer MEDICARE, OTHER, SELFPAY | PROVIDERS: Family Provider Family Medicine; PCP Family Medicine; Visit Provider Internal Medicine Cardiovascular Disease | DX: R00.1 Bradycardia, unspecified (principal) | CPT/HCPCS: 93225; 93226 ==

== ENCOUNTER → 2019-09-02 12:11 | Outpatient (CLI) | payer MEDICARE, SELFPAY ==
[2019-08-02 11:27] VITALS: BMI 26.2
--- NOTE | 2019-09-02 12:23 | CT_ITS ---
STUDY: CT ABDOMEN AND PELVIS WITHOUT CONTRAST REASON FOR EXAM: Female, 79 years old. RT FLANK PAIN RADIATING TO RT GROIN, HEMATURIA, HTN, NO PREV HX OF KS, NO PREV SURG RADIATION DOSAGE (If Supplied By Facility): CTDIvol = ( 11.75 ) mGy, DLP = ( 514.84 ) mGycm TECHNIQUE: Transaxial images were obtained from the dome of the diaphragm to the symphysis pubis without oral contrast, and without intravenous contrast. Sagittal and coronal images were reconstructed. Individualized dose optimization techniques were used for this CT. COMPARISON: None. FINDINGS: Minimal increased linear markings at the right lung base suggestive of mild scarring. Coronary artery calcification. Normal liver. There are multiple small gallstones. Normal spleen. Normal pancreas. Normal bilateral adrenal glands. Normal right kidney. 2 mm nonobstructive calculus in the lower pole of the left kidney. There is a small hiatal hernia. Normal small intestine. There are multiple colonic diverticula consistent with diverticulosis. The appendix is visualized and appears normal. There is diffuse atherosclerotic calcification of the abdominal aorta, without a demonstrated aneurysm. Normal inferior vena cava. Normal retroperitoneum. Normal urinary bladder. Calcified fibroid uterus. Normal abdominal wall. There are degenerative changes of the visualized lumbar spine. Grade 1 anterior listhesis of L4 on L5 without spondylolysis. Loss of the normal lumbar lordosis. CT/Abdomen/Pelvis without Cont IMPRESSION: Nonobstructive calculus in the lower pole of the left kidney. Multiple small gallstones. Sigmoid diverticulosis. Electronically Signed: Jake Wayne, at 13:00 EDT , Service support ,
== END ==
PROVIDERS: PCP Student in an Organized Health Care Education/Training Program; Referring Provider Nurse Practitioner Adult Health; Visit Provider Nurse Practitioner Adult Health
DX: R10.9 Unspecified abdominal pain (principal)
CPT/HCPCS: 74176

== ENCOUNTER 2020-09-26 08:57 | Outpatient (RCR) | payer MEDICARE, SELFPAY ==
[2020-07-19 14:57] VITALS: BMI 27.9
--- NOTE | 2020-09-26 10:02 | HP.PTEVAL ---
Patient's Visit Information DANIEL ANTONY is a 80 year old F referred to Physical Therapy by Dr. Manuel Washington DO with a diagnosis of spondylosis with R radiculopathy. Date of Evaluation: 09/26/20 Physical Therapist: Jass Webster DPT - Visit Plan Frequency: 2x /Week Duration: 4 Weeks - Subjective Pt. is here today for her initial evaluation with diagnosis of spondylosis with radiculopathy. Pt. has been having back pain at L4/L5. She reports having pain for years. Pt. increased pain with standing, lifting, prolonged sitting (stiffness). Pt. does have pain that does go down her R leg that stops there. She reports having good tolerance in mornings, sleeps well. Pt. is very active, with exercises, swimming, taoist activities. PMH: TIA ~3 year ago. Pt. does wear a back brace at times, when she is doing a lot of walking. She is retired. She lives in [place] half the year and in [place] half the year. She is hopeful to either try aquatic therapy here or get some exercises to try aquatics independently. She denies saddle region pain and no loss of B/B. Pt. is hopeful to reduce symptoms and get some exercises to assist with core/hip stability in order to complete all daily activities without limitations. - Pain Lumbar spine Pain Intensity (Out of 10): 0 Pain Intensity Range: 0, 4 R leg Pain Intensity (Out of 10): 1 Pain Intensity Range: 0, 4 - Objective POSTURE: Pt. has decent posture. Pt. is able to sit and stand without marked lateral shift. Pt. has increased lumbar lordosis, but is able to correct and maintain. PALPATION: Pt. has mild tenderness at L4/L5 and at R piriformis muscle belly. No causation of radicular symptoms. NEURO: Pt. has decreased sensation at R lateral distal LE (just below her knee). Pt. has normal DTR of B Achilles and patellar tendon. Pt. is able to rise on heels and toes without issues, but does use external balance aide. ROM: Lumbar spine: flexion min loss NE, ext min/mod loss increase NW, SB min loss NE, rotation min loss NE. Pt. has good mobility of B hips, no increase in symptoms. MMT: RLE: ankle 5/5 throughout; knee- ext 4+/5, flexion 5-/5; hip- flexion 4/5, abd 4/5, ext 4/5. LLE: ankle 5/5 throughout; knee: ext 5-/5, flexion 5-/5; hip- flexion 4/5, abd 3+/5, ext 4/5. Core strength: poor+. GAIT: pt. is able to ambulate without AD. She has slight postural sway, but overall minimal. Pt. has slight flexed posture with increased lumbar lordosis, improves with VCing. STAIRS: reciprocal pattern, marked glute/quad weakness with ascending. uses B HR to complete. - Special Tests L/S Slump test left side: Negative L/S Slump test right side: Negative L/S Left Straight Leg Raise: Negative L/S Right Straight Leg Raise: Negative Lumbar Standing: Flexion - Mechanical Response: No effect Lumbar Standing: Flexion - Symptoms During Testing: No effect Lumbar Standing: Flexion - Symptoms After Testing: No effect Lumbar Standing: Extension - Mechanical Response: No effect Lumbar Standing: Extension - Symptoms During Testing: No effect Lumbar Standing: Extension - Symptoms After Testing: No effect Lumbar Standing: Right Side Glides - Mechanical Response: No effect Lumbar Standing: Right Side [place] - Symptoms During Testing: No effect Lumbar Standing: Right Side [place] - Symptoms After Testing: No effect Lumbar Standing: Left Side [place] - Mechanical Response: No effect Lumbar Standing: Left Side [place] - Symptoms During Testing: No effect Lumbar Standing: Left Side [place] - Symptoms After Testing: No effect R Hip Scour: Negative R Hip CODY - Intraarticular Pathology: Negative R Hip FADDIR - Labrum: Negative R Hip Trendelenberg - Glut Medius: Negative R Hip Claudia - IT Band: Negative - Rehabilitation Potential Physical Therapy Diagnosis: Pt. has signs and symptoms consistent with lumbar spondylosis with R radiculopathy. Pt. has good lumbar and hip flexibility without increase in symptoms. She does have marked weakness in her L hip abd and B hip extension flexion, as well as core strength of poor+. Pt. would benefit from PT to work on core/hip strengthening progressing to independent program in aquatic setting. Rehabilitation Potential: Excellent - Anticipated Interventions Patient/Client Instruction: Educate patient on: Condition, Plan of Care, Risk Factors, Benefits of Fitness Program For the Purpose of:: To facilitate caregiver knowledge, To improve self management, To prevent re-injury, To improve ability to perform tasks related to life management, To improve tolerance to ADL's Therapeutic Exercise to Include: Strength training, Endurance training, Body mechanics, Postural training, Flexibilty training, In an aquatic setting, Dynamic Lumbar Stabilization For the Purpose of:: To decrease pain, To improve nutrient delivery to tissue, To increase oxygenation perfusion, To improve muscle performance and motor function, To improve ability to perform ADL's, To improve health of tissue, To decrease soft tissue restriction Thank you for the opportunity to evaluate your patient. For Medicare and Medicare HMO plans, please review the plan of care and approve it. It will need to be FAXED BACK to us at [phone] for Medicare purposes. For Medicare only, by signing this I certify the plan of care. Please let me know if there are questions or concerns regarding this plan of care. Physician Signature: Date:
== END 2020-09-26 19:00 | disposition home or self-care (01) ==
LOC: PT 08:57
PROVIDERS: PCP Student in an Organized Health Care Education/Training Program; Referring Provider Orthopaedic Surgery; Visit Provider Orthopaedic Surgery
DX: M47.26 Other spondylosis with radiculopathy, lumbar region (principal)
CPT/HCPCS: 97161

== ENCOUNTER 2020-12-03 16:32 | Inpatient (IN) | payer MEDICARE, SELFPAY ==
[2020-12-03] VITALS (24 sets, daily range): BP systolic 90–164; BP diastolic 38–124; PULSE 69–163; RESP 15–26; TEMP 36.1–36.9; O2SAT 92–97; BMI 28.0; BMI 27.9
--- NOTE | 2020-12-03 16:55 | EKG12_ITS ---
Test Reason : CP Blood Pressure : / mmHG Vent. Rate : 164 BPM Atrial Rate : 192 BPM P-R Int : 000 ms QRS Dur : 178 ms QT Int : 272 ms P-R-T Axes : 000 029 040 degrees QTc Int : 449 ms Atrial fibrillation Non-specific intra-ventricular conduction block Abnormal ECG Confirmed by SAIGE GONZALES, KLAUS ([id number]), senior technical editor ANGELIA ESPINAL ([id number]) on 12/05/2020 1:46:04 PM Referred By: ILA/ADAM Confirmed By:KLAUS MOULTON MD
--- NOTE | 2020-12-03 16:57 | ED.VIS.CHEST ---
HPI History of Present Illness Chief Complaint: Chest Pain Detail of Chief Complaint: Accelerated heart rate Informant: patient Onset/Context/Timing Onset: Today and Hours Activity at onset: sudden and activity on onset Timing: Continuous Quality: Positive for Aching Location: Substernal Current Severity: Mild Maximum Severity: Mild Worsened By: Nothing Relieved By: Nothing Associated Symptoms: Positive for Lightheadedness and Palpitations; Negative for Nausea, Vomiting, Diaphoresis, Dyspnea, Cough, Fever and Acid Reflux Narrative Narrative: 80-year-old female history of A. fib. Also a TIA in 2018 hypertension. Patient denies any prior cardiac surgery. She is on Plavix but no other anticoagulation. States she was seated at home at 3:00 p.m. had sudden onset of accelerated irregular heartbeat. Mild midsternal chest discomfort. Mild lightheadedness. Prior Similar Symptoms: Yes Recent Illness/Hospitalization: No CVD Risk Factors: Positive for Hypertension; Negative for Diabetes and Smoking PE Risk Factors: Negative for Recent Travel/Surgery, Recent Immobilization, Prior DVT or PE, Cancer and OCP + Smoking + >/=35 TAD Risk Factors: Negative for Marfan's Syndrome [facility] Medical History (Updated 12/03/20 @ 17:[address] John Campbell MD) Essential hypertension History of poliomyelitis Hyperlipidemia Irregular heartbeat Left hemiparesis Nonrheumatic aortic (valve) insufficiency Nonrheumatic pulmonary valve insufficiency Nonrheumatic tricuspid valve regurgitation Numbness Screening for intestinal cancer Sinus bradycardia Stroke Torn meniscus Home Medications clopidogrel 75 mg PO DAILY #30 tab 09/06/17 [Rx Last Taken Unknown] metoprolol tartrate 25 mg tablet 12.5 mg PO BID #60 tab 10/23/17 [Rx Last Taken Unknown] irbesartan 300 mg tablet 300 mg PO DAILY 08/02/19 [History Last Taken Unknown] mv-min-vit C 250 nl-utdipo-pgzuh HCl-herb 124 12.5 mg chewable tablet 6 mg PO DAILY tab 08/02/19 [History Last Taken Unknown] lactobacillus combination no.4 3 billion cell capsule 3,000 mmu cells PO DAILY 11/10/19 [History Last Taken Unknown] magnesium citrate 100 mg tablet 100 mg PO DAILY 11/10/19 [History Last Taken Unknown] cholecalciferol (vitamin D3) 50 mcg (2,000 unit) capsule 50 mcg PO DAILY 07/19/20 [History Last Taken Unknown] hydralazine 25 mg tablet 25 mg PO TID #90 tab 07/19/20 [Rx Last Taken Unknown] zinc acetate 25 mg (zinc) capsule 25 mg PO DAILY 07/19/20 [History Last Taken Unknown] Power Beet PO 08/22/20 [History Last Taken Unknown] hydrochlorothiazide 25 mg tablet 25 mg PO DAILY tab 11/14/20 [History Last Taken Unknown] rosuvastatin 10 mg PO DAILY 12/03/20 [History Last Taken Unknown] Allergy/AdvReac Type Severity Reaction Status Date / Time prednisone Allergy Unknown Unknown Verified 12/03/20 16:33 shellfish derived Allergy Swelling Verified 12/03/20 16:33 atorvastatin AdvReac Severe Diarrhea Verified 12/03/20 16:33 amlodipine AdvReac fatigue Verified 12/03/20 16:33 Family History Mother CVA (cerebral vascular accident) Hypertension Daughter Thyroid disorder Surgical History H/O colonoscopy S/P trigger finger release Social History Smoking Status: Never smoker alcohol intake: never substance use type: does not use ROS ROS ED ROS Narrative Denies recent illness except for mild cough. Review of Systems ROS Unobtainable: Denies due to encephalopathy Constitutional Constitutional ED: Denies chills, fever(s) or subjective Eyes Eyes: Denies none or change in vision ENT ENT ED: Denies ear pain or rhinorrhea Cardiovascular Cardiovascular: Reports as per HPI, chest pain, palpitations and racing heartbeat Respiratory/Chest Respiratory/Chest: Reports cough; Denies dyspnea Gastrointestinal Gastrointestinal: Denies abdominal pain, constipation, diarrhea, nausea or vomiting Genitourinary Genitourinary ED: Denies dysuria or hematuria Musculoskeletal Musculoskeletal: Denies myalgias Integumentary Denies abscess or rash Neurologic Neurologic: Denies headache(s) Psychiatric Psychiatric: Denies depression Endocrine Endocrinology: Denies polyuria Hematologic/Lymphatic Hematologic/Lymphatic: Denies easy bruising Allergic/Immunologic Allergic/Immunologic ED: Denies urticaria EXAM Physical Exam Narrative Exam Narrative: 80-year-old female no acute distress she is actually tolerating a heart rate of 170 quite well. Initial blood pressure is 160/124.135/83. Her pulse ox is 96% on room air. She is afebrile. H EENT exam unremarkable. Neck nontender no lymphadenopathy. Lungs clear to auscultation bilaterally. Heart irregularly irregular tachycardia consistent with A. fib RVR. Abdomen soft nontender. Extremities moves all 4. Calves nontender without edema or cords. Neurologically she is awake and alert. Const Vital Signs: 12/03/20 16:33 12/03/20 16:56 12/03/20 16:57 Temperature 96.9 F L Temperature Source Temporal Pulse Rate 150 H 163 H Respiratory Rate 18 20 H Respiratory Pattern Blood Pressure 162/124 H 135/83 H Blood Pressure Mean 136 100 Pulse Ox 95 96 96 Oxygen Delivery Method Room Air Room Air Room Air 12/03/20 17:11 Temperature Temperature Source Pulse Rate Respiratory Rate Respiratory Pattern Normal Blood Pressure Blood Pressure Mean Pulse Ox Oxygen Delivery Method Positive well nourished and well developed; Negative for obese, cachectic, contractures or unkempt General Appearance ED: well developed; Negative for unkempt, cachectic or contractures Nutritional Appearance: Negative for cachectic or obese HEENT Reports moist mucous membranes normocephalic and atraumatic; Negative for trauma or tenderness Eyes PERRL and EOMs intact bilaterally Neck no lymphadenopathy, supple and no JVD General: Negative for tenderness Chest Wall inspection of chest normal Chest: Negative for tenderness Resp normal respiratory effort Effort and Inspection: respiratory distress Cardio Negative for regular rate or regular rhythm Rate: tachycardic GI normal to inspection, nondistended, normoactive bowel sounds, soft to palpation, non-tender, non-distended and no masses Back/Spine no CVA tenderness Extremity normal to inspection General Extremety ED: Negative for edema or tenderness General Extremity: Negative for edema Neuro oriented x3 and CN's II-XII intact bilaterally Sensorium / Orientation: awake, alert, oriented to person, oriented to place and oriented to time Psych mental status grossly normal Appearance: Negative for unkempt Attitude: No agitated Mood & Affect: Negative for depressed or tearful Skin no rashes or lesions noted and no wounds MDM MDM MDM Narrative Medical decision making narrative: Patient recurrent A. fib RVR. Will be treated with IV Cardizem. Undergo a cardiac work-up. She is also developed a cough is weak and will get a Covid test. Repeat exam at 5:40 PM patient's heart rate is still tachycardic 1 30-1 40 and remains in A. fib. She will be given another dose of Cardizem IV bolus and started on a drip. She was also informed that her Covid test did come back positive. IR spoke to the hospitalist patient will be admitted to the PCU. Lab Data Attestation: I reviewed the patient's lab results. Lab results narrative: CBC shows white count 2.9. Hemoglobin 14. PT PTT INR are normal at twelve 0.933. Chest x-ray unremarkable portable view read by myself Labs: Laboratory Results - last 24 hr 12/03/20 12/03/20 16:50 16:50 WBC 2.9 L RBC 4.81 Hgb 14.1 Hct 42.2 MCV 87.7 MCH 29.3 MCHC 33.4 RDW Std Deviation 40.4 RDW Coeff of Michelle 12.5 Plt Count 266 MPV 9.5 Immature Gran % (Auto) 0.300 Neut % (Auto) 49.4 Lymph % (Auto) 28.3 [place] % (Auto) 21.7 H Eos % (Auto) 0.0 Baso % (Auto) 0.3 Absolute Neuts (auto) 1.4 L Absolute Lymphs (auto) 0.81 L Nucleated RBC % 0 PT 12.0 INR 0.9 APTT 33.6 Radiography Chest X-Ray - ED: 1 View, Read by ED Physician, Normal, Heart, Lungs, Mediastinum, Bony Structures and No Acute Disease Rhythm Strip Rhythm Strip: A-fib Rate: 164 Ectopy: None EKG Initial EKG: Attestation: I personally reviewed and interpreted this EKG as follows: Interpretation: Atrial Fibrillation Comments: Atrial fibrillation rate of 164. With rate dependent ischemia throughout. Prior: Changed Critical Care Time Critical care time (excluding procedures): 30-74 minutes, Discussing w/Patient &/or Family/Eeler, Discussing w/Consultants, Arranging Admission or Transfer, Performing Direct Patient Care at Bedside and - (31 min) Discharge Plan Dx/Rx/DC Orders Clinical Impression: Atrial fibrillation with RVR, COVID-19 Disposition Disposition: [facility]
[2020-12-03 17:04] LABS: Absolute Lymphocyte Count 0.81 X10^3/uL (0.83-4.51); Absolute Neutrophil Count 1.4 X10^3/uL (2.0-7.7); Basophil# 0.01 X10^3/uL; Basophil% 0.3 % (0-1); Hematocrit 42.2 % (37-47); Hemoglobin 14.1 g/dL (12.0-15.0); Lymphocyte # 0.81 X10^3/ul (0.83-4.51); Lymphocyte % 28.3 % (19-41); Mean Corp Hgb Conc 33.4 g/dL (32-36); Mean Corpuscular Hgb 29.3 pg (27.0-32.0); Mean Corpuscular Volume 87.7 fL (81-99); Mean Platelet Vol. 9.5 fl (6.2-12.0); Monocyte# 0.62 X10^3/uL; Monocyte% 21.7 % (0-10); NRBC Flagged by Analyzer 0 % (0-5); Neutrophil # 1.41 X10^3/uL (2.7-7.7); Neutrophil % 49.4 % (47-70); Platelet Count 266 K/mm3 (150-450); RBC Distribution Width CV 12.5 % (11.6-14.6); RBC Distribution Width SD 40.4 fl (35.1-43.9); Red Blood Count 4.81 M/mm3 (4.2-5.4); White Blood Count 2.9 K/mm3 (4.4-11.0)
[2020-12-03] MEDS: dilTIAZem 25 MG/5 ML Vial IV BOLUS (17:05)
[2020-12-03 17:20] LABS: International Normalized Ratio 0.9; Partial Thromboplast Time 33.6 Seconds (24.1-36.2)
--- NOTE | 2020-12-03 17:20 | RAD_ITS ---
STUDY: X-RAY CHEST REASON FOR EXAM: Female, 80 years old. chest pain TECHNIQUE: Frontal portable view of the chest COMPARISON: None. FINDINGS: The lungs are clear and expanded. There is no demonstrated pleural abnormality. Normal size heart. Normal mediastinum and becka. Normal visualized pulmonary arteries. Normal visualized aortic arch and descending thoracic aorta. Normal visualized thoracic spine. Normal visualized ribs, clavicles, and shoulders. There is no demonstrated abnormality of the visualized soft tissue structures of the upper abdomen. RAD/Chest 1 View (Portable) IMPRESSION: Normal x-ray examination of the chest. Electronically Signed: Christiano Smith MD at 18:17 EDT Tel , Service support ,
--- NOTE | 2020-12-03 17:51 | NURSING ---
VICKI DAVIS AFIB RVR, COVID
[2020-12-03] MEDS: dilTIAZem 25 MG/5 ML Vial 20 MG IV BOLUS (17:53)
[2020-12-03 17:59] LABS: Anion Gap 9 (5-15); BUN 14 mg/dL (7-18); BUN/Creat Ratio 24.2 RATIO (10-20); Calcium,Total 8.8 mg/dL (8.5-10.1); Chloride 103 mmol/L (98-107); Creatinine, Serum 0.58 mg/dL (0.55-1.02); EST Glomerular Filtration Rate 107 mL/min (>60); Est Glom Filt Rate - Afr Amer 129 mL/min (>60); Estimated Creatinine Clearance 37.74 ml/min; Glucose 119 mg/dL (74-106); Potassium 2.7 mmol/L (3.5-5.1); Sodium Level 136 mmol/L (136-145); Thyroid Stim Hormone (TSH) 7.89 uIU/mL (0.358-3.74); Troponin-I HS 62 pg/mL (3.0-54.0)
--- NOTE | 2020-12-03 18:14 | PCM.HP.STD ---
Documented by User: DANDRE Perez 12/03/20 18:27 HPI - General General Date of Admission: 12/03/20 Date of Service: 12/03/20 Chief Complaint: Palpitations HPI Narrative DANIEL ANTONY, is a 80 F who presents with complaints of increased irregular heartbeat. Patient states she has a history of A. fib and had a TIA in the past as well. Patient is on Plavix currently. Patient reports midsternal chest pressure and lightheadedness concurrent with increase in irregular heartbeat. Patient also reports that she has been fatigued over the past 4 days and had general malaise. Patient denies fever, chills, cough, shortness of breath, nausea, vomiting, diarrhea. [facility]LY [facility] Medical History Essential hypertension History of poliomyelitis Hyperlipidemia Irregular heartbeat Left hemiparesis Nonrheumatic aortic (valve) insufficiency Nonrheumatic pulmonary valve insufficiency Nonrheumatic tricuspid valve regurgitation Numbness Screening for intestinal cancer Sinus bradycardia Stroke Torn meniscus Home Medications clopidogrel 75 mg PO DAILY #30 tab 09/06/17 [Rx Last Taken Unknown] metoprolol tartrate 25 mg tablet 12.5 mg PO BID #60 tab 10/23/17 [Rx Last Taken Unknown] irbesartan 300 mg tablet 300 mg PO DAILY 08/02/19 [History Last Taken Unknown] mv-min-vit C 250 [id number] HCl-herb 124 12.5 mg chewable tablet 6 mg PO DAILY tab 08/02/19 [History Last Taken Unknown] lactobacillus combination no.4 3 billion cell capsule 3,000 mmu cells PO DAILY 11/10/19 [History Last Taken Unknown] magnesium citrate 100 mg tablet 100 mg PO DAILY 11/10/19 [History Last Taken Unknown] cholecalciferol (vitamin D3) 50 mcg (2,000 unit) capsule 50 mcg PO DAILY 07/19/20 [History Last Taken Unknown] hydralazine 25 mg tablet 25 mg PO TID #90 tab 07/19/20 [Rx Last Taken Unknown] zinc acetate 25 mg (zinc) capsule 25 mg PO DAILY 07/19/20 [History Last Taken Unknown] Power Beet PO 08/22/20 [History Last Taken Unknown] hydrochlorothiazide 25 mg tablet 25 mg PO DAILY tab 11/14/20 [History Last Taken Unknown] rosuvastatin 10 mg PO DAILY 12/03/20 [History Last Taken Unknown] Allergy/AdvReac Type Severity Reaction Status Date / Time prednisone Allergy Unknown Unknown Verified 12/03/20 16:33 shellfish derived Allergy Swelling Verified 12/03/20 16:33 atorvastatin AdvReac Severe Diarrhea Verified 12/03/20 16:33 amlodipine AdvReac fatigue Verified 12/03/20 16:33 Family History Mother CVA (cerebral vascular accident) Hypertension Daughter Thyroid disorder Surgical History H/O colonoscopy S/P trigger finger release Social History Smoking Status: Never smoker alcohol intake: never substance use type: does not use ROS Constitutional Constitutional: Reports fatigue and malaise; Denies anorexia, chills, fever(s) or weakness Cardiovascular Cardiovascular: Reports dizziness, fatigue, lightheadedness, palpitations and racing heartbeat; Denies chest pain, radiating jaw, neck or arm pain, syncope or tachypnea Respiratory/Chest Respiratory/Chest: Denies cough, shortness of breath at rest or shortness of breath with exertion Gastrointestinal Gastrointestinal: Denies abdominal pain, constipation, diarrhea, nausea or vomiting Genitourinary Genitourinary: Denies dysuria Musculoskeletal Musculoskeletal: Denies back pain, extremity pain, joint pain or joint stiffness Integumentary Integumentary: Denies dry skin Neurologic Neurologic: Denies abnormal gait, abnormal speech, confusion or dizziness Psychiatric Psychiatric: Denies anxiety or depression Endocrine Endocrinology: Denies change in body appearance Hematologic/Lymphatic Hematologic/Lymphatic: Denies anemia, easy bleeding or easy bruising Vital Signs Vital Signs Vital Signs: 12/03/20 16:33 12/03/20 16:56 12/03/20 16:57 Temperature 96.9 F L Temperature Source Temporal Pulse Rate 150 H 163 H Respiratory Rate 18 20 H Respiratory Pattern Blood Pressure 162/124 H 135/83 H Blood Pressure Mean 136 100 Pulse Ox 95 96 96 Oxygen Delivery Method Room Air Room Air Room Air 12/03/20 17:11 12/03/20 17:33 12/03/20 17:50 Temperature Temperature Source Pulse Rate 139 H 151 H Respiratory Rate 23 H 19 H Respiratory Pattern Normal Blood Pressure 137/73 H Blood Pressure Mean 94 Pulse Ox 94 97 Oxygen Delivery Method Room Air 12/03/20 17:59 12/03/20 18:00 12/03/20 18:02 Temperature 98.4 F Temperature Source Temporal Pulse Rate 119 H 105 H 129 H Respiratory Rate 19 H 20 H 15 Respiratory Pattern Blood Pressure 127/71 H 127/71 H Blood Pressure Mean 89 89 Pulse Ox 96 95 95 Oxygen Delivery Method Room Air Room Air Weight Weight: 158 lb 11.2 oz Body Mass Index (BMI) 28.0 Physical Exam Const alert, oriented x3 and no apparent distress General Appearance: cooperative HEENT normocephalic and head/scalp atraumatic Eyes conjunctivae normal and no scleral icterus Neck supple and no JVD General: trachea midline Resp normal respiratory effort, normal air movement and clear to auscultation bilaterally Cardio S1 normal heart sound, S2 normal heart sound and peripheral pulses 2+ throughout Rate: tachycardic Rhythm: abnormal rhythm irregularly irregular (Atrial fibrillation with RVR) GI normal to inspection, nondistended, normoactive bowel sounds, soft to palpation and non-tender Extremity normal capillary refill and no clubbing, cyanosis or edema General Extremity: no tenderness to palpation of joints or extremities Skin General Skin Exam: no breakdown and turgor normal Lesions: no lesions Rashes: no rashes Neuro no focal motor deficits and no sensory deficits noted Speech: speech normal Motor Exam: Negative for general weakness Psych thought process normal, cooperative and affect normal Appearance: appropriate Results Lab / Micro Data Result Diagrams: 12/03/20 16:50 12/03/20 16:50 Labs: Laboratory Results - last 24 hr 12/03/20 16:50: WBC 2.9 L, RBC 4.81, Hgb 14.1, Hct 42.2, MCV 87.7, MCH 29.3, MCHC 33.4, RDW Std Deviation 40.4, RDW Coeff of Michelle 12.5, Plt Count 266, MPV 9.5, Immature Gran % (Auto) 0.300, Neut % (Auto) 49.4, Lymph % (Auto) 28.3, [place] % (Auto) 21.7 H, Eos % (Auto) 0.0, Baso % (Auto) 0.3, Absolute Neuts (auto) 1.4 L, Absolute Lymphs (auto) 0.81 L, Nucleated RBC % 0 12/03/20 16:50: PT 12.0, INR 0.9, APTT 33.6 12/03/20 16:50: Sodium 136, Potassium 2.7 L*, Chloride 103, Carbon Dioxide 24.0, Anion Gap 9, BUN 14, Creatinine 0.58, Estim Creat Clear Calc 37.74, Est GFR (MDRD) Af Amer 129, Est GFR (MDRD) Non-Af 107, BUN/Creatinine Ratio 24.2 H, Glucose 119 H, Calcium 8.8, Troponin I High Sens 62 H, TSH 7.89 H Micro: Microbiology 12/03/20 17:15 Nasal Secretion SARS-CoV-2 Antigen (Rapid) - Final SARS-CoV-2 (COVID 19) Rhythm Strip Rhythm Strip: A-fib Rate: 164 Ectopy: None Assessment & Plan Assessment/Plan (1) Atrial fibrillation with RVR: (2) COVID-19: PLAN: 1. Atrial fibrillation with RVR -Admit to PCU for cardiac monitoring -Continue Cardizem drip, initiated in ER. -Consult cardiology -CBC, CMP, lipid panel in a.m. -Trend cardiac enzymes, initial value 62 -Cardiac diet ordered -Echo ordered for a.m. -Magnesium, phosphorus, TSH ordered stat -PT and OT to eval and treat 2. Hypokalemia -Potassium 2.7, 40 mEq potassium chloride ordered IV as well as potassium chloride 40 mEq p.o. x1 -CMP in a.m. -Will hold hydrochlorothiazide at this time 3. COVID-19 -Patient on day 4 of symptoms, states she started night with body aches, sinus drainage, congestion -Currently stable, on room air -Will encourage incentive spirometry -Oxygen therapy per protocol -As needed albuterol nebulizer treatments ordered We will continue all home medications for chronic diseases including hyperlipidemia, hypertension with the exceptions noted above. DVT prophylaxis-SCDs and subcu Lovenox This patient was seen by DANDRE Perez under the supervision of Dr. Trejo. Documented by User: Dr. Keith Trejo DO 12/03/20 18:39 HPI - General General Date of Admission: 12/03/20 Chief Complaint: chest tightness HPI Narrative 80-year-old female with known history of atrial fibrillation presents with 1 day history of chest tightness. She gets this when she gets A. fib with RVR. So she presented to the emergency room with a heart rate of 150. In the emergency room, patient received total of 45 mg of IV diltiazem and then started on a diltiazem drip. Patient complained of a cough and had a rapid antigen that was positive for COVID-19. Patient was unvaccinated for COVID-19. Patient states that she has not been feeling well since the . [facility] Medical History Essential hypertension History of poliomyelitis Hyperlipidemia Irregular heartbeat Left hemiparesis Nonrheumatic aortic (valve) insufficiency Nonrheumatic pulmonary valve insufficiency Nonrheumatic tricuspid valve regurgitation Numbness Screening for intestinal cancer Sinus bradycardia Stroke Torn meniscus Home Medications clopidogrel 75 mg PO DAILY #30 tab 09/06/17 [Rx Last Taken Unknown] metoprolol tartrate 25 mg tablet 12.5 mg PO BID #60 tab 10/23/17 [Rx Last Taken Unknown] irbesartan 300 mg tablet 300 mg PO DAILY 08/02/19 [History Last Taken Unknown] mv-min-vit C 250 [id number] HCl-herb 124 12.5 mg chewable tablet 6 mg PO DAILY tab 08/02/19 [History Last Taken Unknown] lactobacillus combination no.4 3 billion cell capsule 3,000 mmu cells PO DAILY 11/10/19 [History Last Taken Unknown] magnesium citrate 100 mg tablet 100 mg PO DAILY 11/10/19 [History Last Taken Unknown] cholecalciferol (vitamin D3) 50 mcg (2,000 unit) capsule 50 mcg PO DAILY 07/19/20 [History Last Taken Unknown] hydralazine 25 mg tablet 25 mg PO TID #90 tab 07/19/20 [Rx Last Taken Unknown] zinc acetate 25 mg (zinc) capsule 25 mg PO DAILY 07/19/20 [History Last Taken Unknown] Power Beet PO 08/22/20 [History Last Taken Unknown] hydrochlorothiazide 25 mg tablet 25 mg PO DAILY tab 11/14/20 [History Last Taken Unknown] rosuvastatin 10 mg PO DAILY 12/03/20 [History Last Taken Unknown] Allergy/AdvReac Type Severity Reaction Status Date / Time prednisone Allergy Unknown Unknown Verified 12/03/20 16:33 shellfish derived Allergy Swelling Verified 12/03/20 16:33 atorvastatin AdvReac Severe Diarrhea Verified 12/03/20 16:33 amlodipine AdvReac fatigue Verified 12/03/20 16:33 Family History Mother CVA (cerebral vascular accident) Hypertension Daughter Thyroid disorder Surgical History H/O colonoscopy S/P trigger finger release Social History Smoking Status: Never smoker alcohol intake: never substance use type: does not use ROS ROS Narrative All review of systems were negative except as mentioned above in the history of present illness and the other review of systems. Physical Exam Const alert General Appearance: cooperative HEENT normocephalic HEENT Narrative: No icterus Resp normal respiratory effort, normal air movement and clear to auscultation bilaterally Cardio Cardio Narrative: Irregularly irregular GI normal to inspection, nondistended, normoactive bowel sounds, soft to palpation, non-tender and non-distended Extremity normal capillary refill and no clubbing, cyanosis or edema General Extremity: no tenderness to palpation of joints or extremities Skin General Skin Exam: turgor normal Lesions: no lesions Rashes: no rashes Results Lab / Micro Data Result Diagrams: 12/03/20 16:50 12/03/20 16:50 Assessment & Plan Assessment/Plan (1) Atrial fibrillation with RVR: (2) COVID-19: PLAN: Patient seen and examined independently. Data and vitals reviewed. I agree with the above note by the nurse practitioner. 1. Atrial fibrillation with RVR Continue with diltiazem drip. If that does not work we may need to initiate amiodarone. Consultation to cardiology. [id number] score of 4 Start enoxaparin 2. COVID-19 Mild disease Date of onset was November 30 patient advised that she will need to quarantine for total of 10 days of the onset of her symptoms. Patient significant other at bedside and he was recommended to quarantine for 14 days starting today unless he has been vaccinated but I did not ask if he had been or not. No treatment indicated at this time Patient is unvaccinated 3. CODE STATUS: Addressed with the patient. Patient wishes to be full CODE STATUS. Charges/Coding Visit Charges Inpatient E&M: 15780 Init Hosp L3
--- NOTE | 2020-12-03 18:26 | PCS.PANDOC ---
PANDEMIC DOCUMENTATION INITIATED: Date: 12/03/2020 Time: 1819
[2020-12-03 19:38] LABS: Magnesium 2.2 mg/dL (1.6-2.6); Phosphorus 2.7 mg/dL (2.5-4.9); Thyroid Stim Hormone (TSH) 6.42 uIU/mL (0.358-3.74)
[2020-12-03 20:08] LABS: Troponin-I HS 273 pg/mL (3.0-54.0)
[2020-12-03] MEDS: MELATONIN 3 MG TABLET PO (21:13)
[2020-12-03] MEDS: Enoxaparin 80 MG/0.8 ML Syringe 70 MG SC (21:14)
[2020-12-03] MEDS: Metoprolol Tartrate 25 MG Tablet 12.5 MG PO (21:15)
[2020-12-03] MEDS: Potassium Chloride Oral Tablet 20 MEQ 40 MEQ PO (21:16)
[2020-12-03] MEDS: Potassium Chloride 10mEq/100mL 10 MEQ/100 ML IV.SOLN. 100 MEQ IV BOLUS ×2 (21:26→22:51)
[2020-12-04] VITALS (18 sets, daily range): BP systolic 107–134; BP diastolic 55–79; PULSE 70–91; RESP 14–21; TEMP 36.1; O2SAT 91–98
[2020-12-04] MEDS: Potassium Chloride 10mEq/100mL 10 MEQ/100 ML IV.SOLN. 100 MEQ IV BOLUS ×2 (00:01→01:12)
[2020-12-04 00:09] LABS: Troponin-I HS 565 pg/mL (3.0-54.0)
[2020-12-04 06:36] LABS: Absolute Lymphocyte Count 0.85 X10^3/uL (0.83-4.51); Absolute Neutrophil Count 0.8 X10^3/uL (2.0-7.7); Basophil# 0.02 X10^3/uL; Basophil% 0.9 % (0-1); Hematocrit 41.5 % (37-47); Hemoglobin 13.7 g/dL (12.0-15.0); Lymphocyte # 0.85 X10^3/ul (0.83-4.51); Mean Corpuscular Hgb 29.3 pg (27.0-32.0); Mean Corpuscular Volume 88.9 fL (81-99); Mean Platelet Vol. 9.8 fl (6.2-12.0); Monocyte# 0.48 X10^3/uL; NRBC Flagged by Analyzer 0 % (0-5); Neutrophil # 0.82 X10^3/uL (2.7-7.7); Neutrophil % 37.6 % (47-70); POSITIVE DIFFERENTIAL YES; Platelet Count 262 K/mm3 (150-450); RBC Distribution Width CV 12.7 % (11.6-14.6); RBC Distribution Width SD 41.6 fl (35.1-43.9); Red Blood Count 4.67 M/mm3 (4.2-5.4); White Blood Count 2.2 K/mm3 (4.4-11.0)
[2020-12-04 07:06] LABS: ALB/GLOB Ratio 0.7 RATIO (0.9-2.4); AST(SGOT) 31 U/L (15-37); Alanine Aminotransfer ALT/SGPT 26 U/L (13-56); Albumin, Serum 2.8 g/dL (3.2-5.0); Alkaline Phosphatase 83 U/L (45-117); Anion Gap 8 (5-15); BUN 10 mg/dL (7-18); BUN/Creat Ratio 22.3 RATIO (10-20); Calcium,Total 8.3 mg/dL (8.5-10.1); Chloride 106 mmol/L (98-107); Cholesterol 164 mg/dL (200); Creatinine, Serum 0.45 mg/dL (0.55-1.02); EST Glomerular Filtration Rate 143 mL/min (>60); Est Glom Filt Rate - Afr Amer 173 mL/min (>60); Estimated Creatinine Clearance 37.74 ml/min; Globulin 3.8 g/dL (2.2-4.2); Glucose 109 mg/dL (74-106); High Density Lipoprotein 33 mg/dL; Potassium 3.4 mmol/L (3.5-5.1); Protein, Total 6.6 g/dL (6.4-8.2); Sodium Level 137 mmol/L (136-145); Triglycerides 159 mg/dL; Very Low Density Lipoprotein 32 mg/dL (5-40)
[2020-12-04 07:13] LABS: Differential Indicated SCAN CRITERIA MET
[2020-12-04 07:25] LABS: Troponin-I HS 787 pg/mL (3.0-54.0)
[2020-12-04] MEDS: Cholecalciferol (VIT D3) 25 MCG TABLET (1,000 UNITS) 50 MCG PO (08:25)
[2020-12-04] MEDS: Metoprolol Tartrate 25 MG Tablet PO (08:26)
[2020-12-04] MEDS: Clopidogrel Bisulfate 75 MG Tablet PO (08:26)
[2020-12-04] MEDS: hydrALAZINE 25 MG Tablet PO ×2 (08:26→11:57)
[2020-12-04] MEDS: Enoxaparin 80 MG/0.8 ML Syringe 70 MG SC (08:26)
[2020-12-04] MEDS: Losartan Potassium 100 MG Tablet PO (08:26)
--- NOTE | 2020-12-04 10:28 | EKG12_ITS ---
Test Reason : Blood Pressure : / mmHG Vent. Rate : 069 BPM Atrial Rate : 069 BPM P-R Int : 188 ms QRS Dur : 086 ms QT Int : 410 ms P-R-T Axes : 053 009 -44 degrees QTc Int : 439 ms Normal sinus rhythm Normal ECG When compared with ECG of 03-DEC-2020 16:41, MANUAL COMPARISON REQUIRED, DATA IS UNCONFIRMED Confirmed by SAIGE GONZALES, KLAUS ([id number]), assignment desk editor ANGELIA ESPINAL ([id number]) on 12/05/2020 2:12:02 PM Referred By: RYAN Confirmed By:KLAUS MOULTON MD
--- NOTE | 2020-12-04 10:52 | PCM.DC ---
Discharge Instructions Diet Discharge Diet: Low fat / Low cholesterol Activity Discharge Activity: Return to Normal Activity Dressing / Incision Call your doctor if you observe: Fever of 101 or Higher, Shortness of breath, Dizziness, Chest pain and Increased palpitations (irregular heartbeat) Follow Up Care Please Follow Up With: Wayne Cunningham MD When: 1-2 weeks Test Results: Test results from this visit will be discussed in further detail at your follow-up appointment, if applicable. Discharge Plan Admission Admit Date/Time: 12/03/20 18:04 Primary Reason for Your Visit: Atrial Fibrillation Attending Provider: Keith Trejo Primary Care Provider: Osiel Gamble Consulting Providers: Chong Massey Instructions Patient Instructions: What Is Atrial Flutter/Atrial Fibrillation? Discharge Orders/Prescriptions Prescriptions: New metoprolol tartrate 25 mg Tablet 25 mg PO BID 30 Days Qty: 60 RF: 0 Continued irbesartan 300 mg tablet 300 mg PO DAILY RF: 0 hydrochlorothiazide 25 mg tablet 25 mg PO DAILY RF: 0 magnesium citrate 100 mg tablet 100 mg PO DAILY RF: 0 cholecalciferol (vitamin D3) 50 mcg (2,000 unit) capsule 50 mcg PO DAILY RF: 0 zinc acetate 25 mg (zinc) capsule 25 mg PO DAILY RF: 0 rosuvastatin 10 mg tablet 10 mg PO DAILY RF: 0 hydralazine 25 mg tablet 25 mg PO TID RF: 0 Power Beet PO RF: 0 Discontinued metoprolol tartrate 25 mg tablet 12.5 mg PO BID RF: 0 No Action clopidogrel 75 MG tablet 75 mg PO DAILY RF: 0 Referrals / Follow Up: Osiel Gamble DO [Primary Care Provider] -
--- NOTE | 2020-12-04 10:57 | PCM.DC.SUM ---
Documented by User: DANDRE Perez 12/04/20 11:31 Providers Date of Admission: 12/03/20 Primary Care Physician: Dr. Osiel Gamble, Consultations 12/03/20 19:13 Consult: Cardiology Routine Consulting Provider: Chong Massey Reason for Consult: AFIB with RVR EMERGENT Consult: No MD Notified: Yes Date Notified: 12/03/20 Time Notified: 06:42 Method of Notification: Text Reason For Visit: AFIB WITH RVR, COVID 19 Diagnosis Discharge Diagnosis (1) Atrial fibrillation with RVR: Status: Acute Code(s): I48.91 - Unspecified atrial fibrillation (2) COVID-19: Status: Acute Code(s): U07.1 - COVID-19 Medications at Discharge Home Medications irbesartan 300 mg tablet 300 mg PO DAILY 08/02/19 magnesium citrate 100 mg tablet 100 mg PO DAILY 11/10/19 cholecalciferol (vitamin D3) 50 mcg (2,000 unit) capsule 50 mcg PO DAILY 07/19/20 zinc acetate 25 mg (zinc) capsule 25 mg PO DAILY 07/19/20 Power Beet PO 08/22/20 hydrochlorothiazide 25 mg tablet 25 mg PO DAILY tab 11/14/20 clopidogrel 75 mg PO DAILY 12/03/20 hydralazine 25 mg PO TID 12/03/20 rosuvastatin 10 mg PO DAILY 12/03/20 metoprolol tartrate 25 mg PO BID 30 Days #60 tab 12/04/20 Hospital Course Operations None Procedures None Summary of Care Provided Minutes Spent on Discharge: 35 Hospital Course: Patient is a 80-year-old female who was admitted to the hospital on 12/03/2020 for atrial fibrillation with RVR. Patient reported feeling tired, nasal congestion, and headache. Patient was tested for COVID-19 which came back positive. Patient states she is approximately day 5 of her symptoms with initiation of symptoms on 12/01/2020. Patient was initiated on Cardizem in the ER and was continued overnight. Patient converted to sinus rhythm on the morning of 12/04/2020. After discussion with cardiology it was decided that patient was okay to go home with an increase of her metoprolol twice daily. Due to patient not needing oxygen at this time and onset of symptoms less than 10 days patient was referred for monoclonal antibody infusion. Physical Exam Const alert, oriented x3 and no apparent distress General Appearance: cooperative HEENT normocephalic and head/scalp atraumatic Eyes conjunctivae normal and no scleral icterus Neck supple and no JVD General: trachea midline Resp normal respiratory effort, normal air movement and clear to auscultation bilaterally Cardio regular rate, regular rhythm, S1 normal heart sound, S2 normal heart sound and peripheral pulses 2+ throughout Cardio Narrative: Irregularly irregular GI normal to inspection, nondistended, normoactive bowel sounds, soft to palpation and non-tender Extremity normal capillary refill and no clubbing, cyanosis or edema General Extremity: no tenderness to palpation of joints or extremities Skin skin turgor normal General Skin Exam: no breakdown and turgor normal Lesions: no lesions Rashes: no rashes Neuro no focal motor deficits and no sensory deficits noted Speech: speech normal Motor Exam: Negative for general weakness Psych thought process normal, cooperative and affect normal Appearance: appropriate Weight / BMI Weight Weight: 157 lb 13.616 oz Body Mass Index (BMI) 27.9 ABG / Lab / Microbiology Data Result Diagrams: 12/04/20 06:02 12/04/20 06:02 Laboratory: Laboratory Results - last 24 hr 12/03/20 16:50: WBC 2.9 L, RBC 4.81, Hgb 14.1, Hct 42.2, MCV 87.7, MCH 29.3, MCHC 33.4, RDW Std Deviation 40.4, RDW Coeff of Michelle 12.5, Plt Count 266, MPV 9.5, Immature Gran % (Auto) 0.300, Neut % (Auto) 49.4, Lymph % (Auto) 28.3, [place] % (Auto) 21.7 H, Eos % (Auto) 0.0, Baso % (Auto) 0.3, Absolute Neuts (auto) 1.4 L, Absolute Lymphs (auto) 0.81 L, Nucleated RBC % 0 12/03/20 16:50: PT 12.0, INR 0.9, APTT 33.6 12/03/20 16:50: Sodium 136, Potassium 2.7 L*, Chloride 103, Carbon Dioxide 24.0, Anion Gap 9, BUN 14, Creatinine 0.58, Estim Creat Clear Calc 37.74, Est GFR (MDRD) Af Amer 129, Est GFR (MDRD) Non-Af 107, BUN/Creatinine Ratio 24.2 H, Glucose 119 H, Calcium 8.8, Troponin I High Sens 62 H, TSH 7.89 H 12/03/20 19:09: Phosphorus 2.7, Magnesium 2.2, TSH 6.42 H 12/03/20 19:09: Troponin I High Sens 273 H* 12/03/20 23:36: Troponin I High Sens 565 H* 12/04/20 06:02: WBC 2.2 L, RBC 4.67, Hgb 13.7, Hct 41.5, MCV 88.9, MCH 29.3, MCHC 33.0, RDW Std Deviation 41.6, RDW Coeff of Michelle 12.7, Plt Count 262, MPV 9.8, Immature Gran % (Auto) 0.500, Neut % (Auto) 37.6 L, Lymph % (Auto) 39.0, [place] % (Auto) 22.0 H, Eos % (Auto) 0.0, Baso % (Auto) 0.9, Absolute Neuts (auto) 0.8 L, Absolute Lymphs (auto) 0.85, Nucleated RBC % 0, Differential Comment COMMENT 12/04/20 06:02: Sodium 137, Potassium 3.4 L, Chloride 106, Carbon Dioxide 23.0, Anion Gap 8, BUN 10, Creatinine 0.45 L, Estim Creat Clear Calc 37.74, Est GFR (MDRD) Af Amer 173, Est GFR (MDRD) Non-Af 143, BUN/Creatinine Ratio 22.3 H, Glucose 109 H, Calcium 8.3 L, Total Bilirubin 0.20, AST 31, ALT 26, Alkaline Phosphatase 83, Total Protein 6.6, Albumin 2.8 L, Globulin 3.8, Albumin/Globulin Ratio 0.7 L, Triglycerides 159, Cholesterol 164, LDL Cholesterol 99, VLDL Cholesterol 32, HDL Cholesterol 33 L 12/04/20 06:02: Troponin I High Sens 787 H* Microbiology: Microbiology 12/03/20 17:15 Nasal Secretion SARS-CoV-2 Antigen (Rapid) - Final SARS-CoV-2 (COVID 19) Radiography Diagnostic Testing: Radiology Impression Chest X-Ray 12/03/20 17:20 IMPRESSION: Normal x-ray examination of the chest. Electronically Signed: Christiano Smith MD at 18:17 EDT Tel , Service support , D/C Instructions Discharge Diet: Low fat / Low cholesterol Call your doctor if you observe: Fever of 101 or Higher, Shortness of breath, Dizziness, Chest pain and Increased palpitations (irregular heartbeat) Please Follow Up With: Wayne Cunningham MD When: 1-2 weeks Meaningful Use Info Meaningful Use Diagnoses (Choose all that apply): None applicable Discharge Plan Admission Admit Date/Time: 12/03/20 18:04 Primary Reason for Your Visit: Atrial Fibrillation Attending Provider: Keith Trejo Primary Care Provider: Osiel Gamble Consulting Providers: Chong Massey Instructions Patient Instructions: What Is Atrial Flutter/Atrial Fibrillation? Additional Instructions / Restrictions: follow up with infusion center for Monoclonal Antibody infusion Discharge Orders/Prescriptions Prescriptions: New metoprolol tartrate 25 mg Tablet 25 mg PO BID 30 Days Qty: 60 RF: 0 Continued irbesartan 300 mg tablet 300 mg PO DAILY RF: 0 hydrochlorothiazide 25 mg tablet 25 mg PO DAILY RF: 0 magnesium citrate 100 mg tablet 100 mg PO DAILY RF: 0 cholecalciferol (vitamin D3) 50 mcg (2,000 unit) capsule 50 mcg PO DAILY RF: 0 zinc acetate 25 mg (zinc) capsule 25 mg PO DAILY RF: 0 rosuvastatin 10 mg tablet 10 mg PO DAILY RF: 0 hydralazine 25 mg tablet 25 mg PO TID RF: 0 clopidogrel 75 MG tablet 75 mg PO DAILY RF: 0 Power Beet PO RF: 0 Discontinued metoprolol tartrate 25 mg tablet 12.5 mg PO BID RF: 0 Referrals / Follow Up: Osiel Gamble DO [Primary Care Provider] - Disposition Disposition (needs filled in before D/C Order can be placed): Home, Self Care Documented by User: Dr. Keith Trejo DO 12/04/20 16:27 Providers Date of Admission: 12/03/20 Reason For Visit: AFIB WITH RVR, COVID 19 Medications at Discharge Home Medications irbesartan 300 mg tablet 300 mg PO DAILY 08/02/19 magnesium citrate 100 mg tablet 100 mg PO DAILY 11/10/19 cholecalciferol (vitamin D3) 50 mcg (2,000 unit) capsule 50 mcg PO DAILY 07/19/20 zinc acetate 25 mg (zinc) capsule 25 mg PO DAILY 07/19/20 Power Beet PO 08/22/20 hydrochlorothiazide 25 mg tablet 25 mg PO DAILY tab 11/14/20 clopidogrel 75 mg PO DAILY 12/03/20 hydralazine 25 mg PO TID 12/03/20 rosuvastatin 10 mg PO DAILY 12/03/20 metoprolol tartrate 25 mg PO BID 30 Days #60 tab 12/04/20 ABG / Lab / Microbiology Data Result Diagrams: 12/04/20 06:02 12/04/20 06:02 Discharge Plan Admission Admit Date/Time: 12/03/20 18:04 Primary Reason for Your Visit: Atrial Fibrillation Attending Provider: Keith Trejo Primary Care Provider: Osiel Gamble Consulting Providers: Chong Massey Instructions Patient Instructions: What Is Atrial Flutter/Atrial Fibrillation? Additional Instructions / Restrictions: follow up with infusion center for Monoclonal Antibody infusion Discharge Orders/Prescriptions Prescriptions: New metoprolol tartrate 25 mg Tablet 25 mg PO BID 30 Days Qty: 60 RF: 0 Continued irbesartan 300 mg tablet 300 mg PO DAILY RF: 0 hydrochlorothiazide 25 mg tablet 25 mg PO DAILY RF: 0 magnesium citrate 100 mg tablet 100 mg PO DAILY RF: 0 cholecalciferol (vitamin D3) 50 mcg (2,000 unit) capsule 50 mcg PO DAILY RF: 0 zinc acetate 25 mg (zinc) capsule 25 mg PO DAILY RF: 0 rosuvastatin 10 mg tablet 10 mg PO DAILY RF: 0 hydralazine 25 mg tablet 25 mg PO TID RF: 0 clopidogrel 75 MG tablet 75 mg PO DAILY RF: 0 Power Beet PO RF: 0 Discontinued metoprolol tartrate 25 mg tablet 12.5 mg PO BID RF: 0 Referrals / Follow Up: Osiel Gamble DO [Primary Care Provider] - Disposition Disposition (needs filled in before D/C Order can be placed): Home, Self Care Charges/Coding Addendum Addendum: Patient seen and examined independently. Data and vitals reviewed. I agree with the above note by the nurse practitioner. 80-year-old female presents with acute onset of A. fib with RVR. Patient was able to convert to a sinus rhythm after being on diltiazem. Cardiology contacted and patient metoprolol was increased. Patient also complaining of generalized illness since November 30. Patient was positive for COVID-19. She is unvaccinated. Patient was not hypoxic and did not qualify for remdesivir nor dexamethasone. Information was sent to the outpatient monoclonal antibody for evaluation. Patient deemed appropriate for that and will facilitate if she can get a monoclonal antibody if it is available. Physical exam: Patient is no acute distress and afebrile. Heart rate is regular in rhythm plus S1-S2 with a murmurs Rubs. Visit Charges Inpatient E&M: 91412 Disch Hosp
--- NOTE | 2020-12-04 12:17 | CASEMGMT ---
Per Zora LEDEZMA, pt does not qualify for any home oxygen at rest or with ambulation. SStmercy LEDEZMA CM
--- NOTE | 2020-12-04 12:18 | CASEMGMT ---
DARIEN FUENTES Assessment: Face to Face with patient for initial transition planning/care coordination assessment. DARIEN FUENTES introduced self and role at [facility], voices understanding. Care providers, pharmacy, and demographics verified. PCP: [facility]: Pt sees Dr. Hughes at the [facility] for orthopedic care, and is to see a Dr. Julien for osteoarthritis of her spine. Pt states he was to have that appointment this AM. [facility]: [facility] Insurance: [place] [facility] Prescription Benefit: Yes Living Will/HPOA: Pt states she does not have and states she already has information. LNOK: Jaden Living Arrangements: Pt lives with her in a single story home with a few steps to enter with a handrail. Pt states she does have difficulty with steps due to her osteoarthritis but she takes them sideways and very carefully. Pt states she is independent with ADLs prior to admission. Pt states she has been up in the room with assistance with her wires. Pt states her will be able to assist her if needed at home. Pt reports her to also have been ill but states he is beginning to feel better. Pt states she has two daughters who are able to provide assistance with errands and food and grandchildren who are also supportive. Transportation: Pt drives but her family can assist if needed DME/HHC/SNF: Pt states she has a cane at home but does not use. Denies any other DME. Pt denies any previous HHC or SNF needs. Plan: Pt's goal is to return home with the support of her family. Pt denies any needs a this time. Will continue to follow and assist as needs are identified. Sterling Brito RN CM
--- NOTE | 2020-12-05 16:21 | CASEMGMT ---
DARIEN FUENTES Discharge Follow-up Phone Call: LUIS MIGUEL: Nathan Strata: 1 Call Date: 12/05/20 Discharge Date: 12/04/20 Time of Call: 1620 Admitting Diagnosis: Afib RVR/COVID This DARIEN FUENTES contacted pt for dischare follow-up. Pt states she has been doing fine since discharge. Pt denies any difficulty with breathing or palpitations. Pt does c/o being tired and not feeling hungry but states she is eating and drinking. Pt states she is scheduled for the monoclonal antibiody infusion tomorrow and has a follow-up appointment with Dr. Gamble on Friday. Pt states her cardiology appointment is scheduled for February which was scheduled prior to admission. Encouraged pt to reach out to the cardiology office and see if they would like to see her earlier. Pt states she will do so. Pt states she got her new dose of the metoprolol and is taking it as directed. Pt denied any questions related to her discharge instructions or concerns. Sterling Brito RN CM
== END 2020-12-04 13:47 | disposition home or self-care (01) | DRG 308 ==
LOC: ED 17:44 → PCU 18:05
PROVIDERS: Hospitalist; Nurse Practitioner Family; Emergency Provider Emergency Medicine; PCP Student in an Organized Health Care Education/Training Program
DX: I48.91 Unspecified atrial fibrillation (principal); U07.1 COVID-19; I10 Essential (primary) hypertension; E78.5 Hyperlipidemia, unspecified; E87.6 Hypokalemia; Z79.02 Long term (current) use of antithrombotics/antiplatelets; Z79.899 Other long term (current) drug therapy; Z86.73 Personal history of transient ischemic attack (TIA), and cerebral infarction without residual deficits
CPT/HCPCS: 36415; 71045; 80048; 80053; 80061; 83735; 84100; 84443; 84484; 85025; 85610; 85730; 87426; 93005; 99251; 99285; A4216; G0463

== ENCOUNTER 2020-12-06 15:24 | Outpatient (CLI) | payer MEDICARE, SELFPAY ==
[2020-12-06 15:32] VITALS: BP 146/57; PULSE 78; RESP 18; TEMP 36.6; O2SAT 99; BMI 27.8
[2020-12-06] MEDS: 0.9% Saline Lock 10 ML Syringe IV (15:40)
[2020-12-06 16:36] VITALS: BP 142/69; PULSE 66; RESP 16; TEMP 36.9; O2SAT 100
[2020-12-06 17:36] VITALS: BP 157/58; PULSE 63; RESP 16; TEMP 36.9; O2SAT 99
== END 2020-12-06 17:36 | disposition home or self-care (01) ==
LOC: MS2OUT 15:24 → MS3 15:25
PROVIDERS: PCP Student in an Organized Health Care Education/Training Program; Referring Provider Nurse Practitioner Adult Health; Visit Provider Nurse Practitioner Adult Health
DX: U07.1 COVID-19 (principal)
CPT/HCPCS: J7050; M0245; Q0245; A4216

== ENCOUNTER 2020-12-10 18:00 | Emergency (ER) | payer MEDICARE, SELFPAY ==
[2020-12-10 18:00] VITALS: BP 136/66; PULSE 58; RESP 18; TEMP 36.6; O2SAT 95; BMI 27.6
--- NOTE | 2020-12-10 18:23 | EDS_ITS ---
HPI History of Present Illness Chief Complaint: Weakness Narrative Narrative: 80-year-old female status post Covid out of quarantine presenting with the sensation of her face flushing. She states she does not have headache, fever, facial pain. She does not feel lightheaded or dizzy. She does not have neck pain, chest pain, palpitations, shortness of breath. She has not had any fever or chills. She is eating and drinking normally and states that I do not think I can be dehydrated because I have been eating well. Patient states that she feels like she may have panicked due to her recent history of COVID-19. She also states she recently had atrial fibrillation which was new for her. She supposed to follow-up with her PCP tomorrow for this. She is only on Plavix and not on anticoagulation. [facility] Medical History Essential hypertension History of poliomyelitis Hyperlipidemia Irregular heartbeat Left hemiparesis Nonrheumatic aortic (valve) insufficiency Nonrheumatic pulmonary valve insufficiency Nonrheumatic tricuspid valve regurgitation Numbness Screening for intestinal cancer Sinus bradycardia Stroke Torn meniscus Home Medications irbesartan 300 mg tablet 300 mg PO DAILY 08/02/19 [History Last Taken 12/03/20] magnesium citrate 100 mg tablet 100 mg PO DAILY 11/10/19 [History Last Taken 12/03/20] cholecalciferol (vitamin D3) 50 mcg (2,000 unit) capsule 50 mcg PO DAILY 07/19/20 [History Last Taken 12/03/20] zinc acetate 25 mg (zinc) capsule 25 mg PO DAILY 07/19/20 [History Last Taken 12/03/20] Power Beet PO 08/22/20 [History Last Taken Unknown] hydrochlorothiazide 25 mg tablet 25 mg PO DAILY tab 11/14/20 [History Last Taken 12/03/20] clopidogrel 75 mg PO DAILY 12/03/20 [History Last Taken 12/03/20] hydralazine 25 mg PO TID 12/03/20 [History Last Taken 12/03/20 14:00] rosuvastatin 10 mg PO DAILY 12/03/20 [History Last Taken 12/03/20] metoprolol tartrate 25 mg PO BID 30 Days #60 tab 12/04/20 [Rx Last Taken Unknown] Allergy/AdvReac Type Severity Reaction Status Date / Time shellfish derived Allergy Swelling Verified 12/03/20 16:33 atorvastatin AdvReac Severe Diarrhea Verified 12/03/20 16:33 amlodipine AdvReac fatigue Verified 12/03/20 16:33 Family History Mother CVA (cerebral vascular accident) Hypertension Daughter Thyroid disorder Surgical History H/O colonoscopy S/P trigger finger release Social History Smoking Status: Never smoker alcohol intake: never substance use type: does not use ROS ROS ED Constitutional Constitutional ED: Denies chills or fever(s) Eyes Eyes: Denies blurry vision or diplopia ENT ENT ED: Denies rhinorrhea or sore throat Cardiovascular Cardiovascular: Denies chest pain or palpitations Respiratory/Chest Respiratory/Chest: Denies cough or dyspnea Gastrointestinal Gastrointestinal: Denies abdominal pain or nausea Genitourinary Genitourinary ED: Denies dysuria or hematuria Musculoskeletal Musculoskeletal: Denies arthralgias or myalgias Integumentary Denies Abrasions or rash Neurologic Neurologic: Denies headache(s), paresthesias or weakness Psychiatric Psychiatric: Reports anxiety; Denies depression EXAM Physical Exam Const Vital Signs: 12/10/20 18:00 12/10/20 18:12 Temperature 98 F Temperature Source Temporal Pulse Rate 58 L Respiratory Rate 18 Respiratory Effort Normal Non-Labored Respiratory Pattern Normal Blood Pressure 136/66 H Blood Pressure Mean 89 Pulse Ox 95 Positive well nourished General Appearance ED: NAD; Negative for pallor HEENT Reports normocephalic, head/scalp atraumatic and moist mucous membranes Eyes PERRL and EOMs intact bilaterally Neck no lymphadenopathy and supple Chest Wall inspection of chest normal and palpation of chest normal Resp normal respiratory effort and clear to auscultation bilaterally Auscultation: Negative for rales, rhonchi or wheezes Cardio regular rate and regular rhythm GI normal to inspection, nondistended, normoactive bowel sounds and non-distended Auscultation: normoactive bowel sounds Palpation: soft Narrative: Deferred Back/Spine Cervical Spine: Negative for cervical spine tenderness Extremity normal to inspection General Extremety ED: Yes edema and tenderness General Extremity: edema Neuro oriented x3, CN's II-XII intact bilaterally and no sensory deficits noted Sensorium / Orientation: alert Motor Exam: strength 5/5 throughout Psych mental status grossly normal Attitude: No agitated Skin no rashes or lesions noted and no wounds General Skin Exam: Negative for jaundice or pallor MDM MDM MDM Narrative Medical decision making narrative: Patient presents with a complaint of facial flushing. Her vital signs are stable and she is afebrile. She has no other symptoms and the flushing has resolved. She is not lightheaded or dizzy. She currently feels at her baseline. She states she thinks she panics by coming to the ER. Based on her physical exam her vital signs and not believe she needs any lab work or imaging. She states she feels well. She is not had any symptoms of stroke or cardiac etiology. She states that she did not even have palpitations when the symptoms occur. She has not felt near syncopal. No visual complaints. She is ambulatory. I think patient is stable to be discharged home at this time and follow-up with her primary care physician. Impression: 1. Facial flushing resolved Discharge Plan Triage Chief Complaint: Weakness ED Provider: Benedicto Olivas Dx/Rx/DC Orders Instructions: ED Symptoms With Uncertain Cause Prescriptions: No Action irbesartan 300 mg tablet 300 mg PO DAILY RF: 0 hydrochlorothiazide 25 mg tablet 25 mg PO DAILY RF: 0 magnesium citrate 100 mg tablet 100 mg PO DAILY RF: 0 cholecalciferol (vitamin D3) 50 mcg (2,000 unit) capsule 50 mcg PO DAILY RF: 0 zinc acetate 25 mg (zinc) capsule 25 mg PO DAILY RF: 0 rosuvastatin 10 mg tablet 10 mg PO DAILY RF: 0 hydralazine 25 mg tablet 25 mg PO TID RF: 0 clopidogrel 75 MG tablet 75 mg PO DAILY RF: 0 metoprolol tartrate 25 mg Tablet 25 mg PO BID 30 Days Qty: 60 RF: 0 Power Beet PO RF: 0 Primary Care Provider: Osiel Gamble Referrals: Osiel Gamble DO [Primary Care Provider] - Disposition Disposition: Home, Self Care Discharge Date/Time: 12/10/20 18:36
== END 2020-12-10 18:36 | disposition home or self-care (01) ==
PROVIDERS: Emergency Provider Student in an Organized Health Care Education/Training Program; PCP Student in an Organized Health Care Education/Training Program
DX: R23.2 Flushing (principal); I48.91 Unspecified atrial fibrillation; I10 Essential (primary) hypertension; E78.5 Hyperlipidemia, unspecified; Z79.02 Long term (current) use of antithrombotics/antiplatelets; Z79.899 Other long term (current) drug therapy; Z86.16 Personal history of COVID-19; Z86.73 Personal history of transient ischemic attack (TIA), and cerebral infarction without residual deficits
CPT/HCPCS: 99282; A4216

== ENCOUNTER 2021-04-18 21:13 | Emergency (ER) | payer MEDICARE, SELFPAY ==
[2021-04-18] VITALS (8 sets, daily range): BP systolic 116–209; BP diastolic 76–129; PULSE 76–135; RESP 16–20; TEMP 36.6; O2SAT 97–98; BMI 26.5
--- NOTE | 2021-04-18 22:09 | EKG12_ITS ---
Test Reason : DYSRHYTHMIA Blood Pressure : / mmHG Vent. Rate : 132 BPM Atrial Rate : 153 BPM P-R Int : 000 ms QRS Dur : 088 ms QT Int : 268 ms P-R-T Axes : 000 018 041 degrees QTc Int : 397 ms Atrial fibrillation with RVR Nonspecific ST-T Changes Confirmed by BALDEMAR GONZALES, FELA ([id number]), news video editor ELENA DALLAS ([id number]) on 04/19/2021 11:17:44 AM Referred By: GREGORY Confirmed By:YRIS MCDERMOTT MD
[2021-04-18 22:14] LABS: Absolute Lymphocyte Count 2.41 X10^3/uL (0.83-4.51); Absolute Neutrophil Count 3.9 X10^3/uL (2.0-7.7); Basophil# 0.06 X10^3/uL; Basophil% 0.8 % (0-1); Eosinophil# 0.12 X10^3/uL; Eosinophils% 1.6 % (0-5); Hematocrit 45.9 % (37-47); Hemoglobin 15.7 g/dL (12.0-15.0); Lymphocyte # 2.41 X10^3/ul (0.83-4.51); Mean Corp Hgb Conc 34.2 g/dL (32-36); Mean Corpuscular Hgb 29.8 pg (27.0-32.0); Mean Corpuscular Volume 87.1 fL (81-99); Mean Platelet Vol. 10.1 fl (6.2-12.0); Monocyte# 0.77 X10^3/uL; Monocyte% 10.5 % (0-10); NRBC Flagged by Analyzer 0 % (0-5); Neutrophil # 3.91 X10^3/uL (2.7-7.7); Neutrophil % 53.7 % (47-70); Platelet Count 406 K/mm3 (150-450); RBC Distribution Width CV 12.1 % (11.6-14.6); RBC Distribution Width SD 39.1 fl (35.1-43.9); Red Blood Count 5.27 M/mm3 (4.2-5.4); White Blood Count 7.3 K/mm3 (4.4-11.0)
--- NOTE | 2021-04-18 22:20 | EDS_ITS ---
HPI History of Present Illness Chief Complaint: Palpitations Narrative Narrative: Is a 81-year-old female with past medical history of atrial fibrillation. She is on Eliquis and metoprolol. Patient states that today she took a Claritin-D around 4 or 4:30 in the afternoon. She states around 815 she felt her heart began to race. She states there is been no new medication other than the Claritin-D and denies any excessive stimulant or illicit drug use. She states she has not been able to get her heart rate under control and secondary to this comes in for evaluation. [facility] Medical History Essential hypertension History of poliomyelitis Hyperlipidemia Irregular heartbeat Left hemiparesis Nonrheumatic aortic (valve) insufficiency Nonrheumatic pulmonary valve insufficiency Nonrheumatic tricuspid valve regurgitation Numbness Paroxysmal atrial fibrillation Screening for intestinal cancer Sinus bradycardia Stroke Torn meniscus Home Medications irbesartan 300 mg tablet 300 mg PO DAILY 08/02/19 [History Last Taken 12/03/20] magnesium citrate 100 mg tablet 100 mg PO DAILY 11/10/19 [History Last Taken 12/03/20] cholecalciferol (vitamin D3) 50 mcg (2,000 unit) capsule 50 mcg PO DAILY 07/19/20 [History Last Taken 12/03/20] zinc acetate 25 mg (zinc) capsule 25 mg PO DAILY 07/19/20 [History Last Taken 12/03/20] hydrochlorothiazide 25 mg tablet 25 mg PO DAILY tab 11/14/20 [History Last Taken 12/03/20] hydralazine 25 mg PO TID 12/03/20 [History Last Taken 12/03/20 14:00] metoprolol tartrate 25 mg PO BID 30 Days #60 tab 12/04/20 [Rx Last Taken Unknown] apixaban 5 mg tablet 5 mg PO BID #60 tab 01/02/21 [Rx Last Taken Unknown] acetylcysteine [NAC] 600 mg PO DAILY 04/18/21 [History Last Taken Unknown] potassium 99 mg PO DAILY 04/18/21 [History Last Taken Unknown] querceten 2 tab PO.IVFORM BID 04/18/21 [History Last Taken Unknown] potassium chloride 10 meq PO DAILY 7 Days #7 cap 04/19/21 [Rx Last Taken Unknown] Allergy/AdvReac Type Severity Reaction Status Date / Time shellfish derived Allergy Swelling Verified 04/18/21 21:16 atorvastatin AdvReac Severe Diarrhea Verified 04/18/21 21:16 amlodipine AdvReac fatigue Verified 04/18/21 21:16 Family History Mother CVA (cerebral vascular accident) Hypertension Daughter Thyroid disorder Surgical History H/O colonoscopy S/P trigger finger release Social History Smoking Status: Never smoker alcohol intake: never substance use type: does not use ROS ROS ED Constitutional Constitutional ED: Denies chills or fever(s) ENT ENT ED: Reports rhinorrhea; Denies sore throat Cardiovascular Cardiovascular: Reports palpitations and racing heartbeat; Denies chest pain Respiratory/Chest Respiratory/Chest: Denies cough or dyspnea Gastrointestinal Gastrointestinal: Denies abdominal pain, diarrhea, nausea or vomiting Genitourinary Genitourinary ED: Denies dysuria Musculoskeletal Musculoskeletal: Denies myalgias Integumentary Denies rash Neurologic Neurologic: Denies headache(s) Hematologic/Lymphatic Hematologic/Lymphatic: Reports easy bleeding and easy bruising EXAM Physical Exam Const Vital Signs: 04/18/21 21:14 04/18/21 21:21 04/18/21 22:22 Temperature 97.8 F Temperature Source Temporal Pulse Rate 86 135 H Respiratory Rate 16 16 Respiratory Effort Normal Non-Labored Blood Pressure 162/106 H 209/129 H Blood Pressure Mean 124 155 Pulse Ox 97 Oxygen Delivery Method Room Air 04/18/21 22:27 04/18/21 22:39 04/18/21 23:14 Temperature Temperature Source Pulse Rate 118 H 107 H 128 H Respiratory Rate 18 17 20 H Respiratory Effort Blood Pressure 153/92 H 161/95 H 154/103 H Blood Pressure Mean 112 117 120 Pulse Ox Oxygen Delivery Method Room Air Room Air Room Air 04/18/21 23:20 04/18/21 23:26 Temperature Temperature Source Pulse Rate 119 H 76 Respiratory Rate 18 18 Respiratory Effort Blood Pressure 167/88 H 116/89 H Blood Pressure Mean 114 98 Pulse Ox Oxygen Delivery Method Room Air Room Air Positive well nourished and well developed General Appearance ED: well developed HEENT Reports moist mucous membranes Eyes PERRL and EOMs intact bilaterally Neck supple and no JVD Neck Narrative: Thyroid is without nodule or goiter Resp normal respiratory effort and clear to auscultation bilaterally Cardio Rate: other Other Details: Irregularly irregular rhythm with tachycardic rate GI normal to inspection, nondistended, normoactive bowel sounds, non-tender, non- distended and no masses Auscultation: normoactive bowel sounds Palpation: soft Extremity normal to inspection Extremity Narrative: No asymmetric edema no pitting edema negative Homans' sign bilaterally Neuro oriented x3 and CN's II-XII intact bilaterally Sensorium / Orientation: alert Motor Exam: strength 5/5 throughout Psych mental status grossly normal Skin no rashes or lesions noted MDM MDM MDM Narrative Medical decision making narrative: Patient presented to the ER in A. fib with RVR going approximately 130 bpm. She was actually hypertensive and otherwise awake and alert and in no acute distress. She states she is on metoprolol for blood pressure and heart rate as well as Eliquis to prevent clot. She denies any new medications other than the Claritin-D she took approximately 4 hours prior to this event beginning. Basic work-up was obtained which showed mildly low potassium at 3.2 and elevated TSH of 13.6 but otherwise no clinically signi ficant findings. Patient was given IV hydration as well as metoprolol and Cardizem through IV route. On reevaluation her heart rate is now down in the 70s and blood pressure is 144/76. As she is anticoagulated and now rate controlled I do not feel there is need for admission or cardioversion. Patient will be advised to continue her normal medications and I will add a once a day potassium supplement for the next 7 days based on the mildly low value today. However as she is now hemodynamically stable and rate controlled she can follow- up with her vinyl top installer to discuss need for cardioversion if she does not spontaneously convert to normal sinus rhythm now that her heart rate is controlled. She was advised to stay away from any type of decongestant as I do concerned that this could have been the trigger for her event today Lab Data Attestation: I reviewed the patient's lab results. Labs: Laboratory Results - last 24 hr 04/18/21 04/18/21 21:29 21:29 WBC 7.3 RBC 5.27 Hgb 15.7 H Hct 45.9 MCV 87.1 MCH 29.8 MCHC 34.2 RDW Std Deviation 39.1 RDW Coeff of Michelle 12.1 Plt Count 406 MPV 10.1 Immature Gran % (Auto) 0.400 Neut % (Auto) 53.7 Lymph % (Auto) 33.0 [place] % (Auto) 10.5 H Eos % (Auto) 1.6 Baso % (Auto) 0.8 Absolute Neuts (auto) 3.9 Absolute Lymphs (auto) 2.41 Nucleated RBC % 0 Sodium 142 Potassium 3.2 L Chloride 108 H Carbon Dioxide 26.0 Anion Gap 8 BUN 15 Creatinine 0.68 Estim Creat Clear Calc 37.12 Est GFR (MDRD) Af Amer 107 Est GFR (MDRD) Non-Af 88 BUN/Creatinine Ratio 22.0 H Glucose 121 H Calcium 10.0 Magnesium 2.8 H Troponin I High Sens 16 TSH 13.60 H Discharge Plan Triage Chief Complaint: Palpitations ED Provider: Cristi Murphy Dx/Rx/DC Orders Clinical Impression: Paroxysmal atrial fibrillation with rapid ventricular response, Essential hypertension, 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 use of termination clerk anticoagulation Instructions: ED AFIB Prescriptions: New potassium chloride 10 mEq capsule, extended release 10 meq PO DAILY 7 Days Qty: 7 RF: 0 No Action irbesartan 300 mg tablet 300 mg PO DAILY RF: 0 hydrochlorothiazide 25 mg tablet 25 mg PO DAILY RF: 0 magnesium citrate 100 mg tablet 100 mg PO DAILY RF: 0 cholecalciferol (vitamin D3) 50 mcg (2,000 unit) capsule 50 mcg PO DAILY RF: 0 zinc acetate 25 mg (zinc) capsule 25 mg PO DAILY RF: 0 Eliquis 5 mg tablet 5 mg PO BID Qty: 60 RF: 11 hydralazine 25 mg tablet 25 mg PO TID RF: 0 metoprolol tartrate 25 mg Tablet 25 mg PO BID 30 Days Qty: 60 RF: 0 potassium 99 mg Tablet 99 mg PO DAILY RF: 0 acetylcysteine [NAC] 600 mg Capsule 600 mg PO DAILY RF: 0 querceten 2 tab PO.IVFORM BID RF: 0 Primary Care Provider: Osiel Gamble Referrals: Osiel Gamble DO [Primary Care Provider] - Jason Liu MD [STAFF PHYSICIAN] - 5-7 Days Activity Restrictions/Additional Instructions: Please increase your metoprolol to 2 pills / 50 mg in the morning and 1 pill / 25 mg in the evening for improved rate and blood pressure control Disposition Disposition: Home, Self Care
[2021-04-18] MEDS: Metoprolol Tartrate 5 MG/5 ML Vial IV ×3 (22:22→22:33)
[2021-04-18 22:38] LABS: Anion Gap 8 (5-15); BUN 15 mg/dL (7-18); Chloride 108 mmol/L (98-107); Creatinine, Serum 0.68 mg/dL (0.55-1.02); EST Glomerular Filtration Rate 88 mL/min (>60); Est Glom Filt Rate - Afr Amer 107 mL/min (>60); Estimated Creatinine Clearance 37.12 ml/min; Glucose 121 mg/dL (74-106); Magnesium 2.8 mg/dL (1.6-2.6); Potassium 3.2 mmol/L (3.5-5.1); Sodium Level 142 mmol/L (136-145); Troponin-I HS 16 pg/mL (3.0-54.0)
[2021-04-18] MEDS: Potassium Chloride Oral Tablet 20 MEQ 40 MEQ PO (23:19)
[2021-04-18] MEDS: dilTIAZem 25 MG/5 ML Vial 20 MG IV BOLUS (23:20)
== END 2021-04-19 00:09 | disposition home or self-care (01) ==
PROVIDERS: Emergency Provider Emergency Medicine; PCP Student in an Organized Health Care Education/Training Program; Visit Provider Emergency Medicine
DX: I48.0 Paroxysmal atrial fibrillation (principal); I10 Essential (primary) hypertension; E78.5 Hyperlipidemia, unspecified; Z79.01 Long term (current) use of 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; Z79.899 Other long term (current) drug therapy
CPT/HCPCS: 80048; 83735; 84443; 84484; 85025; 93005; 96361; 96374; 99285; J7030; A4216

== ENCOUNTER 2021-04-25 14:24 | Outpatient (CLI) | payer MEDICARE, SELFPAY ==
[2021-04-25 16:14] LABS: Anion Gap 6 (5-15); BUN 18 mg/dL (7-18); BUN/Creat Ratio 27.2 RATIO (10-20); Calcium,Total 9.4 mg/dL (8.5-10.1); Chloride 105 mmol/L (98-107); Creatinine, Serum 0.66 mg/dL (0.55-1.02); EST Glomerular Filtration Rate 91 mL/min (>60); Est Glom Filt Rate - Afr Amer 111 mL/min (>60); Glucose 112 mg/dL (74-106); Potassium 3.5 mmol/L (3.5-5.1); Sodium Level 140 mmol/L (136-145); T4 Free Direct 0.89 ng/dL (0.76-1.46); Thyroid Stim Hormone (TSH) 3.16 uIU/mL (0.358-3.74)
== END 2021-04-25 23:59 | disposition home or self-care (01) ==
LOC: LAB 14:26
PROVIDERS: PCP Student in an Organized Health Care Education/Training Program; Referring Provider Nurse Practitioner Family; Visit Provider Nurse Practitioner Family
DX: I48.0 Paroxysmal atrial fibrillation (principal); I10 Essential (primary) hypertension; E78.5 Hyperlipidemia, unspecified; R00.1 Bradycardia, unspecified; R20.0 Anesthesia of skin
CPT/HCPCS: 36415; 80048; 84439; 84443

== ENCOUNTER 2023-01-11 22:52 | Emergency (ER) | payer MEDICARE, SELFPAY ==
[2023-01-11 22:53] VITALS: BP 203/106; PULSE 72; RESP 16; TEMP 36.1; O2SAT 94
--- NOTE | 2023-01-11 23:33 | CT_ITS ---
STUDY: CTA HEAD AND NECK WITH CONTRAST REASON FOR EXAM: Female, 82 years old. headache, vertigo, visual disturbance RADIATION DOSAGE (If Supplied By Facility): CTDIvol = ( 27.76 ) mGy, DLP = ( 1449.31 ) mGycm TECHNIQUE: CT angiography was performed with a multi-detector CT scanner. Data acquisition was obtained from the skull base through the vertex following intravenous administration of IV 100mL [id number]-370. MIP images were reconstructed from the axial data set. Post-processing of the angiographic images was performed, with multiplanar reformation and 3D reconstruction. Individualized dose optimization techniques were used for this CT. COMPARISON: No relevant priors. FINDINGS: Normal bilateral petrous carotid arteries. There is calcified plaque formation of the right cavernous carotid artery, with a mild stenosis (less than 50%). There is calcified plaque formation of the left cavernous carotid artery, with a mild stenosis (less than 50%). 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 Normal left A1 segments of the anterior cerebral artery. Normal intact anterior communicating artery (ACOM). Normal bilateral A2 segments of the anterior cerebral arteries. Normal right M1 and M2 segments of the middle cerebral arteries, with a normal M1 bifurcation. Normal left M1 and M2 segments of the middle cerebral arteries, with a normal M1 bifurcation. Normal right posterior communicating artery (PCOM). Normal left posterior communicating artery (PCOM). Normal bilateral vertebral arteries. Normal basilar artery with a normal basilar bifurcation. The visualized bilateral superior cerebellar (SCA) arteries are normal. Normal bilateral P1, P2 and visualized P3 segments of the posterior cerebral arteries. There is no demonstrated aneurysm of the [place] of [place]. There is no demonstrated abnormality of the visualized brain. AORTIC ARCH: There is atherosclerotic calcific plaque formation of the aortic arch and great vessels arising from the aortic arch, without a hemodynamically significant stenosis. There is a bovine origin of the great vessels with a common origin of the brachiocephalic and left common carotid artery. Normal origin of the left subclavian artery. RIGHT CAROTID ARTERIES: Normal right common carotid artery (CCA). There is mild atherosclerotic plaque formation with minimal narrowing of the right carotid bulb. There is mild atherosclerotic plaque formation of the origin of the right internal carotid artery with less than 50% cross sectional diameter stenosis. Normal visualized cervical portion of the right internal carotid artery. There is mild atherosclerotic plaque formation of the origin of the right external carotid artery with less than 50% cross sectional diameter stenosis. LEFT CAROTID ARTERIES: Normal left common carotid artery (CCA). There is mild atherosclerotic plaque formation with minimal narrowing of the left carotid bulb. There is mild atherosclerotic plaque formation of the origin of the left internal carotid artery with less than 50% cross sectional diameter stenosis. Normal visualized cervical portion of the left internal carotid artery. Normal origin of the left external carotid artery (ECA). VERTEBRAL ARTERIES: Mild calcified atherosclerotic disease involving the intracranial portion of bilateral vertebral arteries, otherwise normal bilateral vertebral arteries. CT/CTA Head AND Neck W/ Contrast IMPRESSION: CTA neck: Atherosclerosis predominantly in the carotid bulb region with no evidence of significant stenosis, occlusion or dissection. CTA brain: Atherosclerotic disease as described with no significant stenosis, occlusion or aneurysm involving the [place] of [place]. Electronically Signed: Taylor Vale MD at 1:38 EDT ,
--- NOTE | 2023-01-11 23:34 | EDS_ITS ---
HPI History of Present Illness Chief Complaint: Palpitations Informant: patient and family Narrative Narrative: Patient states she was on the toilet tonight and got up from it because she was finished and suddenly she felt like she was spinning in her head, she noticed at some point she had a headache but not sure if it started abruptly or not, and felt like maybe her heart was racing but she is not sure. She has a history of going into A-fib, she is anticoagulated on Eliquis, and she thought maybe this was A-fib. She denies any tinnitus or earache recently. No recent falls or injury. She states she remembers feeling off balance earlier today when she was walking, but she has an IT band issue and wondered if it was related to that [facility] Medical History Essential hypertension History of poliomyelitis Hyperlipidemia Irregular heartbeat Left hemiparesis Nonrheumatic aortic (valve) insufficiency Nonrheumatic pulmonary valve insufficiency Nonrheumatic tricuspid valve regurgitation Numbness Paroxysmal atrial fibrillation Screening for intestinal cancer Sinus bradycardia Stroke Torn meniscus Home Medications irbesartan 300 mg tablet 300 mg PO DAILY BP 08/02/19 [History Last Taken 12/03/20] hydrochlorothiazide 25 mg tablet 25 mg PO DAILY Diuretic/ BP 11/14/20 [History Last Taken 12/03/20] cholecalciferol (vitamin D3) 125 mcg (5,000 unit) tablet 125 mcg PO DAILY 04/25/21 [History Last Taken Unknown] hydralazine 25 mg tablet 25 mg PO TID #1 TAB 08/29/21 [Rx Last Taken Unknown] magnesium 200 mg tablet 200 mg PO DAILY 05/31/22 [History Last Taken Unknown] metoprolol tartrate 25 mg tablet 12.5 mg (1/2 x 25 mg) PO BID 30 days #30 tabs 05/31/22 [Rx Last Taken Unknown] apixaban 5 mg tablet (Eliquis) 5 mg PO BID #180 tabs 01/08/23 [Rx Last Taken Unknown] acetylcysteine 1 cap PO DAILY 01/12/23 [History Last Taken Unknown] carboxymethyl 0.5 %-glycerin 1 %-polysorb 80 0.5 %-PF eye dropperette (Refresh Optive Misha-3 (PF)) 1 drp EACH EYE DAILY PRN dry eye(s) 01/12/23 [History Last Taken Unknown] clonidine HCl 0.2 mg tablet 0.2 mg PO Q8H PRN SBP > 170 #15 tabs 01/12/23 [Rx Last Taken Unknown] etodolac 300 mg capsule 300 mg PO Q12H PRN pain 01/12/23 [History Last Taken Unknown] quercetin 1 cap PO DAILY 01/12/23 [History Last Taken Unknown] Allergy/AdvReac Type Severity Reaction Status Date / Time shellfish derived Allergy Swelling Verified 01/11/23 22:52 atorvastatin AdvReac Severe Diarrhea Verified 01/11/23 22:52 amlodipine AdvReac fatigue Verified 01/11/23 22:52 Family History Mother CVA (cerebral vascular accident) Hypertension Daughter Thyroid disorder Surgical History (Reviewed 09/11/22 @ 10:08 by Joleen Tejeda INTERPRETIVE PROGRAM COORDINATOR, INTERPRETIVE PROGRAM COORDINATOR-C) H/O colonoscopy S/P trigger finger release Social History (Updated 01/12/23 @ 00:37 by Roxanna Herron) household members: spouse housing: house current occupational status: retired Smoking Status: Never smoker alcohol intake: never substance use type: does not use ROS ROS ED Constitutional Constitutional ED: Denies chills or fever(s) Eyes Eyes: Reports change in vision bilateral (Transiently altered seems back to normal now); Denies diplopia ENT ENT ED: Denies ear pain, rhinorrhea or sore throat Cardiovascular Cardiovascular: Reports as per HPI, dizziness and palpitations; Denies chest pain, lightheadedness, orthostatic symptoms, syncope or vomiting Respiratory/Chest Respiratory/Chest: Denies cough or dyspnea Gastrointestinal Gastrointestinal: Reports nausea; Denies abdominal pain, diarrhea or vomiting Genitourinary Genitourinary ED: Denies dysuria or hematuria Musculoskeletal Musculoskeletal: Denies back pain or neck pain Integumentary Denies abscess or rash Neurologic Neurologic: Reports headache(s), paresthesias LUE (Chronic unchanged) and LLE (Chronic unchanged) and other Details: Vertigo like spinning and had ; Denies weakness Psychiatric Psychiatric: Denies anxiety or suicidal thoughts EXAM Physical Exam Const Vital Signs: 01/11/23 22:53 01/12/23 01:19 01/12/23 01:36 Temperature 96.9 F L Temperature Source Temporal Pulse Rate 72 148 H 115 H Respiratory Rate 16 16 16 Blood Pressure 203/106 H 211/88 H 194/81 H Blood Pressure Mean 138 129 118 Pulse Ox 94 99 97 Oxygen Delivery Method Room Air 01/12/23 02:04 01/12/23 02:31 Temperature Temperature Source Pulse Rate 62 76 Respiratory Rate 19 H 15 Blood Pressure 170/73 H 170/56 H Blood Pressure Mean 105 94 Pulse Ox 95 95 Oxygen Delivery Method Positive well nourished and well developed Constitutional Narrative: Appears to not feel well. At 1 point put her face and her hands and states she does not know what is going on General Appearance ED: well developed and NAD HEENT Reports TM's clear and moist mucous membranes normocephalic and atraumatic Tympanic Membrane ED: Yes TM's clear Eyes PERRL and EOMs intact bilaterally Neck full ROM and supple Resp normal respiratory effort and clear to auscultation bilaterally Cardio regular rate, regular rhythm and no murmurs Rate: Negative for bradycardia or tachycardic GI non-tender and non-distended Auscultation: normoactive bowel sounds Palpation: soft Back/Spine no CVA tenderness General Back: other FROM Extremity normal to inspection General Extremety ED: Negative for edema, pulses abnormal or tenderness General Extremity: Negative for edema or pulses abnormal Neuro oriented x3, CN's II-XII intact bilaterally and no sensory deficits noted Neuro Narrative: Normal speech no aphasia no dysarthria. Normal [id number] and [id number] bilaterally. Sensorium / Orientation: awake and alert Motor Exam: strength 5/5 throughout Psych mental status grossly normal Skin no rashes or lesions noted and no wounds NIHSS NIHSS Initial: 1a Level of Consciousness: 0 1b LOC Questions (Score 2 if aphasic/stupor): 0 1c LOC Commands (Only score 1st attempt): 0 2 Best Gaze (If aphasic, use reflexive mvmts.): 0 3 Visual: 0 4 Facial Palsy: 0 5 Motor Arm Right (UN = amputation/fusion): 0 5 Motor Arm Left: 0 6 Motor Leg Right: 0 6 Motor Leg Left: 0 7 Limb ataxia (Only + if out of proportion): 0 8 Sensory (Aphasia/stupor=0 or 1, coma=2): 0 9 Best Language: 0 10 Dysarthria (mute, coma=2, intubated=UN): 0 11 Extinction and Inattention (only scored if +): 0 Total Score: 0 MDM MDM MDM Narrative Medical decision making narrative: Patient is not in A-fib, her EKG is normal, and her symptoms are more consistent with vertigo. Specifically this all sounds more peripheral, and she indicates that she has had episodes like this in the past but not this severe. Incidentally her blood pressure at triage is reading 203/106. I had nurses put her on a monitor so we could keep track of this. While getting worked up, she went in and out of A-fib and she was symptomatic with that, feeling the palpitations and racing heartbeat again. We caught it on the monitor. She would go in it and her heart rate would go up to the 130-140 range, and then she would convert back to sinus rhythm in the 70s, and continue flip-flopping. At this time after she arrived back from [place] when this was occurring, we rechecked her pressure and it was 211/88. So as a response to all of this I ordered labetalol 20 mg IV. She states she takes metoprolol twice daily and 30 took her nighttime dose, this is around 0115. After this, her BP was down to 170/73, but she continued to go in and out of afib. I suspect her BP may be causing this, but it is unclear. her troponin is WNL at 13. Prior to getting the labetalol, she ambulated short distance to the bathroom and her heart rate went up to the 170s. So we observed her for a while longer after getting the labetalol. We took her for another walk, she remained with heart rate 60s-70s, no palpitations no A-fib, and her blood pressure little while later is 155/75. Talked at length how and why the symptoms may or may not be related. We are all in agreement she stable to follow-up with cardiology after the weekend, I will give her a prescription for clonidine just for as needed purposes if her blood pressure goes over 170 she is comfortable with that plan. We also talked about reasons to return, simply having recurrent palpitations without significantly high blood pressure, if she chooses to wait and see how the symptoms go and observe herself at home I think that would be reasonable unless she has new chest heaviness, dyspnea, etc. then she should return to the ER. History & Record Review Discussion w/independent historian: Patient and Family Additional record(s) reviewed:: Prior outpatient record (Cardiology visit 09/11/2022) Lab Data Attestation: I reviewed the patient's lab results. Labs: Laboratory Results - last 24 hr 01/11/23 23:55 WBC 7.4 RBC 4.59 Hgb 13.5 Hct 40.7 MCV 88.7 MCH 29.4 MCHC 33.2 RDW Std Deviation 41.2 RDW Coeff of Michelle 12.6 Plt Count 310 MPV 9.9 Immature Gran % (Auto) 1.600 H Neut % (Auto) 60.4 Lymph % (Auto) 25.9 [place] % (Auto) 9.7 Eos % (Auto) 1.6 Baso % (Auto) 0.8 Absolute Neuts (auto) 4.5 Absolute Lymphs (auto) 1.93 Nucleated RBC % 0 Sodium 142 Potassium 3.3 L Chloride 108 H Carbon Dioxide 25.0 Anion Gap 9 BUN 21 H Creatinine 0.65 Est GFR (MDRD) Af Amer 113 Est GFR (MDRD) Non-Af 93 BUN/Creatinine Ratio 32.4 H Glucose 113 H Calcium 9.4 Troponin I High Sens 13 Radiography Diagnostic Testing: Clinical Impression(s) from Imaging Studies Head/Neck CTA 01/11/23 23:33 IMPRESSION: CTA neck: Atherosclerosis predominantly in the carotid bulb region with no evidence of significant stenosis, occlusion or dissection. CTA brain: Atherosclerotic disease as described with no significant stenosis, occlusion or aneurysm involving the [place] of [place]. Electronically Signed: Taylor Vale MD at 1:38 EDT , Rhythm Strip Rhythm Strip: Sinus Rhythm Rate: 65 Ectopy: None EKG Initial EKG: Attestation: I personally reviewed and interpreted this EKG as follows: Interpretation: Sinus Rhythm and No Acute Injury Pattern Follow-up EKG: Attestation: I personally reviewed and interpreted this EKG as follows: Interpretation: No Acute Injury Pattern, Atrial Fibrillation (w/ RVR) and Non-Specific ST Changes Discharge Plan Triage Chief Complaint: Palpitations ED Provider: Boaz Ho Dx/Rx/DC Orders Clinical Impression: Accelerated hypertension, Paroxysmal atrial fibrillation, Vertigo Instructions: AFib Dc, Hypertension Dc Prescriptions: New clonidine HCl 0.2 mg tablet 0.2 mg PO Q8H PRN (Reason: SBP > 170) Qty: 15 0RF No Action irbesartan 300 mg tablet 300 mg PO DAILY hydrochlorothiazide 25 mg tablet 25 mg PO DAILY hydralazine 25 mg tablet 25 mg PO TID Qty: 1 0RF magnesium 200 mg tablet 200 mg PO DAILY cholecalciferol (vitamin D3) 125 mcg (5,000 unit) tablet 125 mcg PO DAILY metoprolol tartrate 25 mg tablet 12.5 mg PO BID 30 Days Qty: 30 0RF etodolac 300 mg capsule 300 mg PO Q12H PRN (Reason: pain) acetylcysteine [NAC] 1 cap PO DAILY quercetin 1 cap PO DAILY Refresh Optive Misha-3 (PF) 0.5-1-0.5 % dropperette 1 drp EACH EYE DAILY PRN (Reason: dry eye(s)) Eliquis 5 mg tablet 5 mg PO BID Qty: 180 3RF Primary Care Provider: Osiel Gamble Referrals: Osiel Gamble DO [Primary Care Provider] - Joleen Tejeda INTERPRETIVE PROGRAM COORDINATOR, INTERPRETIVE PROGRAM COORDINATOR-C [Non-Staff -Ordering Privileges] - As soon as possible Disposition Disposition: Home, Self Care Stroke Documentation Questions Stroke Team Activated: No (Possibly had symptoms early in the day, unclear LKW, possibly last night) Was Patient considered for Endovascular Intervention?: No-CTA negative, determined not to be an endovascular candidate IV Thrombolytic Administered: No (sx resolved )
[2023-01-11] MEDS: Ondansetron 4 MG/2 ML Vial IV (23:57)
[2023-01-11] MEDS: Meclizine HCl 25 MG Tablet PO (23:57)
[2023-01-11] MEDS: 0.9% Normal Saline (500mL Bag) 500 ML 999 ML IV (23:59)
[2023-01-12 00:16] LABS: Absolute Lymphocyte Count 1.93 X10^3/uL (0.83-4.51); Absolute Neutrophil Count 4.5 X10^3/uL (2.0-7.7); Basophil# 0.06 X10^3/uL; Basophil% 0.8 % (0-1); Eosinophil# 0.12 X10^3/uL; Eosinophils% 1.6 % (0-5); Hematocrit 40.7 % (37-47); Hemoglobin 13.5 g/dL (12.0-15.0); Lymphocyte # 1.93 X10^3/ul (0.83-4.51); Lymphocyte % 25.9 % (19-41); Mean Corp Hgb Conc 33.2 g/dL (32-36); Mean Corpuscular Hgb 29.4 pg (27.0-32.0); Mean Corpuscular Volume 88.7 fL (81-99); Mean Platelet Vol. 9.9 fl (6.2-12.0); Monocyte# 0.72 X10^3/uL; Monocyte% 9.7 % (0-10); NRBC Flagged by Analyzer 0 % (0-5); Neutrophil # 4.49 X10^3/uL (2.7-7.7); Neutrophil % 60.4 % (47-70); Platelet Count 310 K/mm3 (150-450); RBC Distribution Width CV 12.6 % (11.6-14.6); RBC Distribution Width SD 41.2 fl (35.1-43.9); Red Blood Count 4.59 M/mm3 (4.2-5.4); White Blood Count 7.4 K/mm3 (4.4-11.0)
[2023-01-12 00:27] LABS: Anion Gap 9 (5-15); BUN 21 mg/dL (7-18); BUN/Creat Ratio 32.4 RATIO (10-20); Calcium,Total 9.4 mg/dL (8.5-10.1); Chloride 108 mmol/L (98-107); Creatinine, Serum 0.65 mg/dL (0.55-1.02); EST Glomerular Filtration Rate 93 mL/min (>60); Est Glom Filt Rate - Afr Amer 113 mL/min (>60); Glucose 113 mg/dL (74-106); Potassium 3.3 mmol/L (3.5-5.1); Sodium Level 142 mmol/L (136-145); Troponin-I HS 13 pg/mL (3.0-54.0)
[2023-01-12 01:19] VITALS: BP 211/88; PULSE 148; RESP 16; O2SAT 99; BMI 31.6
[2023-01-12 01:36] VITALS: BP 194/81; PULSE 115; RESP 16; O2SAT 97
[2023-01-12] MEDS: Labetalol (Prefilled) 20 MG/4 ML IV (01:38)
--- NOTE | 2023-01-12 01:46 | ED.RN ---
PT AMBULATED TO BR WITH ASSIST OF DAUGHTER. HR INCREASED TO 170. DECREASED TO 88 WHEN RETURNED TO BED. C/O ANXIETY. TRANDATE IV GIVEN ORDERED.
[2023-01-12 02:04] VITALS: BP 170/73; PULSE 62; RESP 19; O2SAT 95
[2023-01-12 02:31] VITALS: BP 170/56; PULSE 76; RESP 15; O2SAT 95
[2023-01-12 03:00] VITALS: BP 155/75; PULSE 73; RESP 19; O2SAT 97
== END 2023-01-12 04:00 | disposition home or self-care (01) ==
PROVIDERS: Emergency Provider Emergency Medicine; PCP Student in an Organized Health Care Education/Training Program; Visit Provider Emergency Medicine
DX: I10 Essential (primary) hypertension (principal); I48.0 Paroxysmal atrial fibrillation; R42 Dizziness and giddiness; Z79.899 Other long term (current) drug therapy; Z86.73 Personal history of transient ischemic attack (TIA), and cerebral infarction without residual deficits
CPT/HCPCS: 70496; 70498; 80048; 84484; 85025; 93005; 96361; 96374; 96375; 99283; J7030; Q9967; A4216; J2405

== ENCOUNTER 2023-02-03 20:42 | Emergency (ER) | payer MEDICARE, SELFPAY ==
[2023-02-03 20:43] VITALS: BP 208/82; PULSE 69; RESP 18; TEMP 36.3; O2SAT 98; BMI 26.8
[2023-02-03 20:54] VITALS: PULSE 63; RESP 16; O2SAT 98
[2023-02-03 21:03] LABS: Absolute Lymphocyte Count 2.63 X10^3/uL (0.83-4.51); Absolute Neutrophil Count 3.8 X10^3/uL (2.0-7.7); Basophil# 0.05 X10^3/uL; Basophil% 0.7 % (0-1); Eosinophil# 0.11 X10^3/uL; Eosinophils% 1.5 % (0-5); Hematocrit 43.4 % (37-47); Hemoglobin 14.2 g/dL (12.0-15.0); Lymphocyte # 2.63 X10^3/ul (0.83-4.51); Lymphocyte % 36.4 % (19-41); Mean Corp Hgb Conc 32.7 g/dL (32-36); Mean Corpuscular Hgb 29.5 pg (27.0-32.0); Mean Corpuscular Volume 90.2 fL (81-99); Mean Platelet Vol. 9.6 fl (6.2-12.0); Monocyte# 0.66 X10^3/uL; Monocyte% 9.1 % (0-10); NRBC Flagged by Analyzer 0 % (0-5); Neutrophil # 3.76 X10^3/uL (2.7-7.7); Platelet Count 339 K/mm3 (150-450); RBC Distribution Width CV 12.7 % (11.6-14.6); RBC Distribution Width SD 42.1 fl (35.1-43.9); Red Blood Count 4.81 M/mm3 (4.2-5.4); White Blood Count 7.2 K/mm3 (4.4-11.0)
--- NOTE | 2023-02-03 21:05 | RAD_ITS ---
STUDY: X-RAY CHEST REASON FOR EXAM: Female, 82 years old. chest pain TECHNIQUE: AP portable COMPARISON: December 03, 2020 FINDINGS: The lungs are clear and expanded. There is no demonstrated pleural abnormality. Normal size heart. Normal mediastinum and becka. Normal visualized pulmonary arteries. Mildly calcified aortic arch and descending thoracic aorta. Normal visualized thoracic spine. Normal visualized ribs, clavicles, and shoulders. There is no demonstrated abnormality of the visualized soft tissue structures of the upper abdomen. No significant change since prior study RAD/Chest 1 View (Portable) IMPRESSION: No acute cardiopulmonary pathology. Electronically Signed: Manuel Gibson MD at 21:23 [facility] ,
[2023-02-03 21:24] LABS: Anion Gap 6 (5-15); BUN 17 mg/dL (7-18); BUN/Creat Ratio 23.2 RATIO (10-20); Calcium,Total 9.5 mg/dL (8.5-10.1); Chloride 108 mmol/L (98-107); Creatinine, Serum 0.73 mg/dL (0.55-1.02); EST Glomerular Filtration Rate 81 mL/min (>60); Est Glom Filt Rate - Afr Amer 98 mL/min (>60); Glucose 135 mg/dL (74-106); Potassium 3.3 mmol/L (3.5-5.1); Sodium Level 140 mmol/L (136-145); Troponin-I HS (w/2H Reflex) 12 pg/mL (3.0-54.0)
[2023-02-03] MEDS: Aspirin 81 MG TAB.CHEW 324 MG PO (22:19)
[2023-02-03] MEDS: Potassium Chloride Oral Tablet 20 MEQ 40 MEQ PO (22:19)
--- NOTE | 2023-02-03 22:45 | EDS_ITS ---
HPI History of Present Illness Chief Complaint: Chest Pain Onset/Context/Timing Onset: Today Activity at onset: sudden and light activity Timing: Continuous Quality: Positive for Aching Location: Left Chest Worsened By: Nothing Relieved By: Nothing Associated Symptoms: Positive for Cough and Lightheadedness; Negative for Nausea, Vomiting, Diaphoresis, Dyspnea, Fever, Acid Reflux or Palpitations Narrative Narrative: Patient presents with chest pain that began rather suddenly tonight. Patient states she was just doing her normal daily activities when the pain began. Patient states it has been constant. Patient states it is only been present for the past couple hours. Patient describes the pain as aching. Patient states it is over the left side of her chest. Patient states it actually started in her left thoracic area just below her scapula and then radiated around to the anterior chest. Patient states nothing makes it worse and nothing makes it better. Patient admits to a mild cough. Patient denies any sputum production. Patient admits to some lightheadedness. Patient denies any nausea or vomiting. Patient denies any diaphoresis. CVD Risk Factors: Positive for Hypertension and Hypercholesterolemia; Negative for Diabetes, Family History 1' </=55 or Smoking PE Risk Factors: Negative for Recent Travel/Surgery, Recent Immobilization, Prior DVT or PE, Cancer or OCP + Smoking + >/=35 PFSH [facility] Medical History Essential hypertension History of poliomyelitis Hyperlipidemia Irregular heartbeat Left hemiparesis Nonrheumatic aortic (valve) insufficiency Nonrheumatic pulmonary valve insufficiency Nonrheumatic tricuspid valve regurgitation Numbness Paroxysmal atrial fibrillation Screening for intestinal cancer Sinus bradycardia Stroke Torn [facility] [employer] Home Medications irbesartan 300 mg tablet 300 mg PO DAILY BP 08/02/19 [History Last Taken 12/03/20] hydrochlorothiazide 25 mg tablet 25 mg PO DAILY Diuretic/ BP 11/14/20 [History Last Taken 12/03/20] cholecalciferol (vitamin D3) 125 mcg (5,000 unit) tablet 125 mcg PO DAILY 04/25/21 [History Last Taken Unknown] magnesium 200 mg tablet 200 mg PO DAILY 05/31/22 [History Last Taken Unknown] metoprolol tartrate 25 mg tablet 12.5 mg (1/2 x 25 mg) PO BID 30 days #30 tabs 05/31/22 [Rx Last Taken Unknown] acetylcysteine 1 cap PO DAILY 01/12/23 [History Last Taken Unknown] carboxymethyl 0.5 %-glycerin 1 %-polysorb 80 0.5 %-PF eye dropperette (Refresh Optive Misha-3 (PF)) 1 drp EACH EYE DAILY PRN dry eye(s) 01/12/23 [History Last Taken Unknown] etodolac 300 mg capsule 300 mg PO Q12H PRN pain 01/12/23 [History Last Taken Unknown] quercetin 1 cap PO DAILY 01/12/23 [History Last Taken Unknown] hydralazine 50 mg tablet 50 mg PO TID #90 tabs 01/27/23 [Rx Last Taken Unknown] apixaban 5 mg tablet (Eliquis) 5 mg PO BID Pt wants 2 month until March #180 tabs 01/29/23 [Rx Last Taken Unknown] Allergy/AdvReac Type Severity Reaction Status Date / Time shellfish derived Allergy Swelling Verified 02/03/23 20:45 atorvastatin AdvReac Severe Diarrhea Verified 02/03/23 20:45 amlodipine AdvReac fatigue Verified 02/03/23 20:45 Family History Mother CVA (cerebral vascular accident) Hypertension Daughter Thyroid disorder Surgical History H/O colonoscopy S/P trigger finger release Social History household members: spouse housing: house current occupational status: retired Smoking Status: Never smoker alcohol intake: never substance use type: does not use ROS ROS ED Constitutional Constitutional ED: Denies chills or fever(s) Eyes Eyes: Denies blurry vision or change in vision ENT ENT ED: Denies rhinorrhea or sore throat Cardiovascular Cardiovascular: Reports chest pain; Denies palpitations Respiratory/Chest Respiratory/Chest: Reports cough; Denies dyspnea Gastrointestinal Gastrointestinal: Denies nausea or vomiting Genitourinary Genitourinary ED: Reports urinary frequency; Denies dysuria or hematuria Musculoskeletal Musculoskeletal: Reports neck pain; Denies back pain Integumentary Denies abscess or rash Neurologic Neurologic: Reports headache(s); Denies weakness Allergic/Immunologic Allergic/Immunologic ED: Denies mouth swelling or urticaria EXAM Physical Exam Const Vital Signs: 02/03/23 20:43 02/03/23 20:54 02/03/23 20:54 Temperature 97.3 F L Temperature Source Temporal Pulse Rate 69 63 Respiratory Rate 18 16 Respiratory Effort Blood Pressure 208/82 H Blood Pressure Mean 124 Pulse Ox 98 98 Oxygen Delivery Method Room Air Room Air 02/03/23 20:59 02/03/23 22:52 Temperature Temperature Source Pulse Rate 54 L Respiratory Rate 14 Respiratory Effort Normal Non-Labored Blood Pressure 187/64 H Blood Pressure Mean 105 Pulse Ox 98 Oxygen Delivery Method Positive well nourished and well developed General Appearance ED: well developed and NAD HEENT Reports moist mucous membranes Neck supple and no JVD Resp normal respiratory effort and clear to auscultation bilaterally Cardio regular rate and regular rhythm GI soft to palpation, non-tender and non-distended Extremity normal to inspection General Extremety ED: Negative for edema or tenderness General Extremity: Negative for edema Neuro oriented x3, CN's II-XII intact bilaterally and no sensory deficits noted Sensorium / Orientation: awake and alert Motor Exam: strength 5/5 throughout Psych mental status grossly normal Heart Score History: Slightly/Non-Suspicious ECG: Normal Age: >/= 65 years Risk Factors: 1 or 2 Risk Factors Troponin: </= Normal Limit Score: 3 MDM MDM MDM Narrative Medical decision making narrative: Differential diagnosis includes cardiac dysrhythmia, cardiac ischemia, pneumonia, pneumothorax, electrolyte abnormality, musculoskeletal pain, and anxiety. EKG will be obtained to assess for cardiac dysrhythmia and cardiac ischemia. Chest x-ray will be obtained to assess for pneumonia and pneumothorax. CBC will be obtained to assess for leukocytosis and anemia. Basic metabolic profile will be obtained to assess for electrolyte abnormality and renal function. High-sensitivity troponin will be obtained to assess for cardiac ischemia. 2-hour repeat high-sensitivity troponin will be obtained to assess for ongoing cardiac ischemia. Patient has a Wells score of 0. Patient has no PE risk factors. Therefore, I do not feel this is from a pulmonary embolism. History & Record Review Discussion w/independent historian: Patient and Family Lab Data Attestation: I reviewed the patient's lab results. Lab results narrative: CBC was reviewed and was within normal limits. Basic metabolic profile was reviewed and showed a mild hypokalemia of 3.3. The remainder was essentially within normal limits. Initial high-sensitivity troponin was reviewed and was normal at 12. 2-hour repeat high-sensitivity troponin was reviewed and was normal at 13. Labs: Laboratory Results - last 24 hr 02/03/23 02/03/23 20:53 23:05 WBC 7.2 RBC 4.81 Hgb 14.2 Hct 43.4 MCV 90.2 MCH 29.5 MCHC 32.7 RDW Std Deviation 42.1 RDW Coeff of Michelle 12.7 Plt Count 339 MPV 9.6 Immature Gran % (Auto) 0.300 Neut % (Auto) 52.0 Lymph % (Auto) 36.4 Heard % (Auto) 9.1 Eos % (Auto) 1.5 Baso % (Auto) 0.7 Absolute Neuts (auto) 3.8 Absolute Lymphs (auto) 2.63 Nucleated RBC % 0 Sodium 140 Potassium 3.3 L Chloride 108 H Carbon Dioxide 26.0 Anion Gap 6 BUN 17 Creatinine 0.73 Estim Creat Clear Calc 38.10 Est GFR (MDRD) Af Amer 98 Est GFR (MDRD) Non-Af 81 BUN/Creatinine Ratio 23.2 H Glucose 135 H Calcium 9.5 Troponin I High Sens 12 13 Radiography Chest X-Ray - ED: 1 View, Read by ED Physician, Read by Radiologist and No Acute Disease Diagnostic Testing: Clinical Impression(s) from Imaging Studies Chest X-Ray 02/03/23 21:05 IMPRESSION: No acute cardiopulmonary pathology. Electronically Signed: Manuel Gibson MD at 21:23 EST Reading Location ID and State: [address] [place] [address] Tel , Service support , Portable 1 view chest x-ray was obtained. On my independent interpretation, lung major are clear. There is normal cardiac silhouette. Bony thorax is normal. There is no acute process noted. Radiologist also interpreted the x- ray and agrees. EKG Initial EKG: Attestation: I personally reviewed and interpreted this EKG as follows: Interpretation: Sinus Rhythm (65) and No Acute Injury Pattern Comments: EKG was obtained. On my independent interpretation, it showed a normal sinus rhythm with a rate of 65. CT interval, QRS interval, and QTc intervals were all normal. [place] was normal. There are no acute ST or T wave changes. Prior EKG tracings: available for review Prior: Unchanged (01/11/2023) Treatment and Re-Evaluation :: Patient was given aspirin. Patient was given a dose of potassium. Patient was advised of her findings. Patient has a HEART score of 3. Patient was advised that this is low risk for acute cardiac event. Patient states she has an appointment with the nurse practitioner at her cardiology office tomorrow morning. Patient was instructed to follow-up with this appointment tomorrow morning. Patient was instructed to follow-up with her primary care physician in 5 to 7 days. Patient was instructed to return if worse in any way. Patient understood and was agreeable with the plan. All questions were answered. Discharge Plan Triage Chief Complaint: Chest Pain ED Provider: Keith Keller Dx/Rx/DC Orders Clinical Impression: Essential hypertension, Chest pain, Hypokalemia Instructions: ED Chest Pain, Uncertain Cause Prescriptions: No Action irbesartan 300 mg tablet 300 mg PO DAILY hydrochlorothiazide 25 mg tablet 25 mg PO DAILY magnesium 200 mg tablet 200 mg PO DAILY cholecalciferol (vitamin D3) 125 mcg (5,000 unit) tablet 125 mcg PO DAILY metoprolol tartrate 25 mg tablet 12.5 mg PO BID 30 Days Qty: 30 0RF etodolac 300 mg capsule 300 mg PO Q12H PRN (Reason: pain) acetylcysteine [NAC] 1 cap PO DAILY quercetin 1 cap PO DAILY Refresh Optive Misha-3 (PF) 0.5-1-0.5 % dropperette 1 drp EACH EYE DAILY PRN (Reason: dry eye(s)) hydralazine 50 mg tablet 50 mg PO TID Qty: 90 11RF Eliquis 5 mg tablet 5 mg PO BID Qty: 180 3RF Primary Care Provider: Osiel Gamble Referrals: Wayne Cunningham MD [Med Staff - Active Staff] - Keep [facility] appointment Osiel Gamble DO [Primary Care Provider] - 5-7 Days Joleen Tejeda NP, CONTRACT PROGRAMMER-C [Non-Staff -Ordering Privileges] - Keep [facility] appointment Disposition Disposition: Home, Self Care
[2023-02-03 22:52] VITALS: BP 187/64; PULSE 54; RESP 14; O2SAT 98
[2023-02-03 23:00] LABS: Reflex Troponin-HS? (from REC) Y
[2023-02-03 23:33] LABS: Troponin-I HS 13 pg/mL (3.0-54.0)
[2023-02-04] VITALS: RESP 18
== END 2023-02-04 00:01 | disposition home or self-care (01) ==
PROVIDERS: Emergency Provider Emergency Medicine; PCP Student in an Organized Health Care Education/Training Program; Visit Provider Emergency Medicine
DX: I10 Essential (primary) hypertension (principal); R07.9 Chest pain, unspecified; E87.6 Hypokalemia; Z86.73 Personal history of transient ischemic attack (TIA), and cerebral infarction without residual deficits
CPT/HCPCS: 71045; 80048; 84484; 85025; 93005; 99284; A4216

== ENCOUNTER → 2023-02-17 | Outpatient (CLI) | payer MEDICARE, SELFPAY ==
[2023-02-17 13:14] LABS: BNP,B-Type NATRIURETIC PEPTIDE 114.3 pg/mL (0-100)
[2023-02-17 13:24] LABS: Anion Gap 5 (5-15); BUN 15 mg/dL (7-18); BUN/Creat Ratio 18.1 RATIO (10-20); Calcium,Total 9.1 mg/dL (8.5-10.1); Chloride 105 mmol/L (98-107); Creatinine, Serum 0.83 mg/dL (0.55-1.02); EST Glomerular Filtration Rate 70 mL/min (>60); Est Glom Filt Rate - Afr Amer 85 mL/min (>60); Glucose 103 mg/dL (74-106); Potassium 3.4 mmol/L (3.5-5.1); Sodium Level 140 mmol/L (136-145); Thyroid Stim Hormone (TSH) 2.83 uIU/mL (0.358-3.74)
== END | disposition home or self-care (01) ==
LOC: LAB 11:10
PROVIDERS: PCP Student in an Organized Health Care Education/Training Program; Referring Provider Nurse Practitioner Gerontology; Visit Provider Nurse Practitioner Gerontology
DX: I48.0 Paroxysmal atrial fibrillation (principal); I10 Essential (primary) hypertension; I37.1 Nonrheumatic pulmonary valve insufficiency; I36.1 Nonrheumatic tricuspid (valve) insufficiency; R05.3 Chronic cough
CPT/HCPCS: 36415; 80048; 83880; 84443

== ENCOUNTER → 2023-03-18 | Outpatient (CLI) | payer MEDICARE, SELFPAY ==
--- NOTE | 2023-03-18 09:01 | ECHOD_ITS ---
Reason For Study: PAF, HTN Procedure This was a 2D Doppler, Color Flow transthoracic echocardiogram. Exam performed in department. Left Ventricle Normal LV size. Mild concentric left ventricular hypertrophy. Left ventricular systolic function is normal. The estimated ejection fraction is 60 %. Stage 1 diastolic dysfunction. No regional wall motion abnormalities noted. Right Ventricle Normal RV size. Normal systolic function. Atria Normal left atrium. Normal right atrium. Bubble contrast study negative for right to left interatrial shunt. Mitral Valve Normal mitral valve. Tricuspid Valve Normal tricuspid valve. Mild tricuspid valve insufficiency. Pulmonary artery systolic pressure is 32 mmHg. Aortic Valve Normal aortic valve. Trisinus/trileaflet aortic valve. Pulmonic Valve Normal pulmonic valve. Great Vessels Normal aortic root. The pulmonary artery is normal size. Normal inferior vena cava. Pericardium/Pleural No pericardial effusion. Medication 22 gauge I.V. with prn adaptor inserted into right arm. Performed a rapid injection of agitated mix of 9 cc saline and 1cc air to assess for atrial septal defect. MMode/2D Measurements & Calculations LVIDd: 4.0 cm IVSd: 1.2 cm Ao root diam: 3.3 cm LVIDs: 2.3 cm LVPWd: 1.2 cm RVDd: 3.3 cm FS: 41.5 % LAV(MOD-bp): 46.0 ml LVAd ap4: 25.3 cm2 LVAd ap2: 27.2 cm2 LAV(MOD-bp) Indexed: 26.1 ml/m2 LVLd ap4: 8.1 cm LVLd ap2: 8.1 cm LAV(MOD-sp2): 49.6 ml EDV(MOD-sp4): 66.6 ml EDV(MOD-sp2): 75.9 ml LAV(MOD-sp4): 40.4 ml EDV(sp4-el): 66.9 ml EDV(sp2-el): 77.0 ml LVAs ap4: 13.7 cm2 LVAs ap2: 13.2 cm2 LVLs ap4: 7.3 cm LVLs ap2: 7.0 cm ESV(MOD-sp4): 24.2 ml ESV(MOD-sp2): 22.1 ml ESV(sp4-el): 22.0 ml ESV(sp2-el): 21.2 ml EF(MOD-sp4): 63.7 % EF(MOD-sp2): 70.9 % EF(sp4-el): 67.1 % SV(MOD-sp4): 42.4 ml SV(MOD-sp2): 53.8 ml SV(sp4-el): 44.9 ml LA A4 area: 16.3 cm2 LA dimension(2D): 3.9 cm RA A4 area: 13.8 cm2 TAPSE: 2.5 cm Time Measurements MV dec time: 0.26 sec Doppler Measurements & Calculations MV E max fortunato: 58.7 cm/sec Lat Peak E' Fortunato: 7.4 cm/sec Med Peak E' Fortunato: 5.9 cm/sec MV A max fortunato: 96.3 cm/sec E/E' lat: 7.9 E/E' med: 10.0 MV E/A: 0.61 Ao V2 max: 132.7 cm/sec AI max fortunato: 494.7 cm/sec MV dec slope: 228.2 cm/sec2 Ao max P.0 mmHg AI max P.9 mmHg Ao V2 mean: 86.7 cm/sec Ao mean P.5 mmHg AI dec slope: 201.5 cm/sec2 Ao V2 VTI: 33.3 cm AI P1/2t: 719.2 msec AV (velocity ratio): 0.70 LV V1 max: 94.6 cm/sec PA V2 max: 93.9 cm/sec TR max fortunato: 270.1 cm/sec LV V1 max P.6 mmHg TR max P.2 mmHg LV V1 mean P.0 mmHg LV V1 mean: 67.6 cm/sec LV V1 VTI: 23.2 cm ECHO/Echo Complete Interpretation Summary Normal LV size. Left ventricular systolic function is normal. The estimated ejection fraction is 60 %. Bubble contrast study negative for right to left interatrial shunt. Stage 1 diastolic dysfunction. Mild concentric left ventricular hypertrophy. Ordering Physician: Joleen Tejeda Referring Physician: Osiel Gamble Performed By: Mehnaz Rogers RDCS
--- OUTSIDE RECORDS SUMMARY | 2023-03-18 09:24 | XMS RPT_ITS | CCD ---
Author Name Unknown Address [address] [place] [address] Organization [facility] Care Team Providers Care Customer Care Manager Name Role Phone GIL TOBIN DO Primary Care Physician [phone] Mahad LI MD, Gil Primary Care Provider [phone] Mahad LI MD, Michael Primary Care Provider [phone]) Mahad LI MD, Michael Primary Care Provider [phone]) Mahad LI DO, Michael Primary Care Provider [phone]) GIL TOBIN IV Primary Care Unavailable PATRICE LOCKHART Attending Unavailable PATRICE LOCKHART Admitting Unavailable Halko IV, DO, Rodney Primary Care Provider [phone] Gaby LEDEZMA, Erin De Los Santos Unavailable Unavailable HALKO DO, GIL Attending Unavailable HALKO DO, GIL Primary Care Unavailable HALKO DO, GIL Attending Unavailable HALKO DO, GIL Primary Care Unavailable HALKO DO, GIL Primary Care Unavailable HALKO DO, GIL Attending Unavailable HALKO DO, GIL Primary Care Unavailable KEILY GONZALES, DR SCOTT Attending Unavailab le HALKO DO, GIL Primary Care Unavailable MAST SWITCH ENGINEER-MEDICAL ASSISTING PROGRAM DIRECTORKIKO Attending Unavailabl e HALKO DO, GIL Primary Care Unavailable MAST SWITCH ENGINEER-MEDICAL ASSISTING PROGRAM DIRECTOR, KIKO Attending Unavailabl e HALKO IV, RODNEY Primary Care Unavailable Hina Weinstein Attending Unavailable NITA GRANADOS Referring Unavailable HALKO IV, RODNEY Primary Care Unavailable HALKO IV, RODNEY Primary Care Unavailable PATRIEC LOCKHART Referring Unavailable HALKO IV, RODNEY Primary Care Unavailable PATRICE LOCKHART Attending Unavailable PATRICE LOCKHART Referring Unavailable HALKO IV, RODNEY Primary Care Unavailable PATRICE LOCKHART Attending Unavailable HALKO IV, RODNEY Primary Care Unavailable PATRICE LOCKHART Attending Unavailable HALKO IV, RODNEY Primary Care Unavailable BETH TAVERAS Referring Unavailable MAHAD LI, GIL Cruz Primary Care Unavailable EBTH TAVERAS Attending Unavailable MAHAD LI, GIL Cruz Primary Care Unavailable MAHAD LI, RODNEY Primary Care Unavailable ROSARIO WALLER Referring Unavailable Allergies Allergy Classification Reported Allergen(s) Allergy Type Date of Onset Reaction(s) Facility (20 sources) atorvastatin; Translations: [atorvastatin] Drug Allergy 10-03-2020 [facility] (20 sources) Shellfish; Translations: [SHELLFISH] Food allergy 12-03-2006 [facility] Medications Current Medications Medication Drug Class(es) Dates Sig (Normalized) Sig (Original) apixaban 5 mg oral tablet (20 sources) Factor Xa Inhibitor Start: 03-12-2021 Eliquis 5 mg oral tablet BID, 0 Refill(s), 69.9 Start Date: 03/12/21 Status: Ordered Completed/Discontinued Medications Medication Drug Class(es) Dates Sig (Normalized) Sig (Original) clopidogrel 75 mg oral tablet (1 source) [id number] Platelet Inhibitor Start: 03-01-2019 End: 08-29-2021 take 1 tablet by mouth once daily clopidogrel (PLAVIX) 75 mg tablet Take 1 tablet by mouth once daily. 0 03/01/2019 08/29/2021 Discontinued Problems Active Problems Problem Classification Problem Date Documented Date Episodic/Chronic Calculus of urinary tract (8 sources) Kidney stone 09-02-2019 Episodic Cardiac dysrhythmias (19 sources) Paroxysmal atrial fibrillation; Translations: [Paroxysmal atrial fibrillation] Onset: 3 12-11-2020 Chronic Cardiac dysrhythmias (8 sources) Sinus bradycardia 08-02-2019 Episodic Coagulation and hemorrhagic disorders (6 sources) Hypercoagulability state; Translations: [Other thrombophilia] Onset: 3 09-04-2022 Chronic Conditions associated with dizziness or vertigo (5 sources) Dizziness; Translations: [Dizziness and giddiness] Onset: 3 01-17-2023 Episodic Congestive heart failure; nonhypertensive (4 sources) Chronic diastolic heart failure 09-04-2022 Chronic Coronary atherosclerosis and other heart disease (4 sources) Coronary arteriosclerosis 09-04-2022 Chronic Disorders of lipid metabolism (14 sources) Hypercholesterolemia; Translations: [Pure hypercholesterolemia, unspecified] Onset: 3 10-16-2018 Chronic Essential hypertension (20 sources) Benign essential hypertension; Translations: [Hypertensive disorder] Onset: 4 10-16-2018 Chronic Fluid and electrolyte disorders (2 sources) Hypokalemia 12-11-2020 Episodic Genitourinary symptoms and ill-defined conditions (2 sources) Unspecified symptoms and signs involving the genitourinary system; Translations: [Unspecified symptoms and signs involving the genitourinary system] Onset: 3 Episodic Heart valve disorders (12 sources) Aortic valve regurgitation; Translations: [Mitral valve regurgitation] 09-04-2022 Chronic Hypertension with complications and secondary hypertension (8 sources) Hypertensive heart failure; Translations: [Hypertensive left ventricular hypertrophy] 09-04-2022 Chronic Joint disorders and dislocations; trauma-related (8 sources) Tear of medial meniscus of knee 08-27-2019 Episodic Malaise and fatigue (8 sources) Fatigue 09-29-2020 Episodic Osteoarthritis (8 sources) Osteoarthritis 01-11-2019 Chronic Other aftercare (8 sources) Post-discharge follow-up 12-11-2020 Episodic Other aftercare (2 sources) 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; Translations: [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] Onset: 3 Episodic Other aftercare (2 sources) Encounter for follow-up examination after completed treatment for conditions other than malignant neoplasm; Translations: [Encounter for follow-up examination after completed treatment for conditions other than malignant ne] Onset: 3 Episodic Other and ill-defined heart disease (4 sources) Left ventricular hypertrophy 09-04-2022 Chronic Other bone disease and musculoskeletal deformities (1 source) Disorder of bone; Translations: [Other specified disorders of bone density and structure, unspecified site] Onset: 2 Episodic Other bone disease and musculoskeletal deformities (8 sources) Osteopenia 03-19-2021 Episodic Other bone disease and musculoskeletal deformities (8 sources) Somatic dysfunction of pelvic region 10-19-2018 Episodic Other bone disease and musculoskeletal deformities (8 sources) Somatic dysfunction of sacral region 10-19-2018 Episodic Other bone disease and musculoskeletal deformities (1 source) Somatic dysfunction of lumbar region 02-17-2023 Episodic Other bone disease and musculoskeletal deformities (1 source) Somatic dysfunction of rib 02-17-2023 Episodic Other circulatory disease (8 sources) History of transient ischemic attack 10-19-2018 Episodic Other circulatory disease (14 sources) History of cerebrovascular accident without residual deficits; Translations: [Personal history of transient ischemic attack (TIA), and cerebral infarction without residual deficits] Onset: 3 07-26-2019 Episodic Other CLOTHING PATTERN PREPARER infection and poliomyelitis (8 sources) H/O: poliomyelitis 10-19-2018 Episodic Other connective tissue disease (8 sources) Bursitis 02-23-2019 Episodic Other connective tissue disease (8 sources) Iliotibial band friction syndrome 02-23-2019 Episodic Other connective tissue disease (8 sources) Muscle pain 09-29-2020 Episodic Other endocrine disorders (6 sources) Secondary hyperaldosteronism; 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] Onset: 3 09-04-2022 Chronic Other injuries and conditions due to external causes (2 sources) At low risk for fall 06-27-2021 Episodic Other liver diseases (2 sources) Enzyme level - finding 01-11-2019 Episodic Other lower respiratory disease (8 sources) Cough; Translations: [Subacute cough] 12-11-2020 Episodic Other non-traumatic joint disorders (8 sources) Arthritis of hip 10-26-2018 Chronic Other non-traumatic joint disorders (8 sources) Knee pain 01-11-2019 Episodic Other nutritional; endocrine; and metabolic disorders (1 source) Hyperbilirubinemia 02-17-2023 Chronic Other nutritional; endocrine; and metabolic disorders (8 sources) Body mass index 25-29 - overweight 10-19-2018 Episodic Other nutritional; endocrine; and metabolic disorders (5 sources) Overweight in adulthood with body mass index of 25 or more but less than 30 01-16-2022 Episodic Other skin disorders (17 sources) Lichen sclerosus et atrophicus; Translations: [Circumscribed scleroderma] Onset: 7 Chronic Paralysis (8 sources) Monoparesis - leg 07-31-2020 Chronic Lucila-; endo-; and myocarditis; cardiomyopathy (except that caused by tuberculosis or sexually transmitted disease) (14 sources) Heart valve disorder; Translations: [Endocarditis, valve unspecified] Onset: 3 08-02-2019 Chronic Peripheral and visceral atherosclerosis (15 sources) Atherosclerosis of aorta; Translations: [Carotid atherosclerosis] 09-04-2022 Chronic Pulmonary heart disease (4 sources) Pulmonary hypertension 09-04-2022 Chronic Residual codes; unclassified (8 sources) Immunization due 01-26-2020 Episodic Residual codes; unclassified (5 sources) Screening due 01-16-2022 Episodic Residual codes; unclassified (1 source) Pain; Translations: [Pain, unspecified] Onset: Episodic Screening and history of mental health and substance abuse codes (5 sources) Tobacco use and exposure - finding 01-16-2022 Chronic Spondylosis; intervertebral disc disorders; other back problems (6 sources) Degeneration of lumbar intervertebral disc 06-27-2021 Chronic Unclassified (20 sources) Patient encounter status 01-26-2020 Unclassified (4 sources) Screening status 10-16-2018 Unclassified (4 sources) Drug therapy finding 09-04-2022 Urinary tract infections (8 sources) Acute cystitis 08-30-2019 Episodic Past or Other Problems Problem Classification Problem Date Documented Date Episodic/Chronic Abdominal pain (17 sources) Right flank pain; Translations: [Right upper quadrant pain] Onset: 05-28-2022 08-30-2019 Episodic Bacterial infection; unspecified site (16 sources) Infection by methicillin sensitive Staphylococcus aureus; Translations: [Methicillin susceptible Staphylococcus aureus infection as the cause of diseases classified elsewhere] Onset: 02-27-2017 02-27-2017 Episodic Biliary tract disease (13 sources) Cholecystitis; Translations: [Cholelithiasis without obstruction] Onset: 05-28-2022 09-02-2019 Episodic Other screening for suspected conditions (not mental disorders or infectious disease) (7 sources) Patient encounter status; Translations: [Encounter for screening mammogram for malignant neoplasm of breast] Onset: 09-16-2022 Episodic Other skin disorders (16 sources) Actinic keratosis; Translations: [Actinic keratosis] Onset: 12-04-2006 01-03-2010 Episodic Results Test Name Value Interpretation Reference Range Facil ity Vital Signs Date Time Vital Sign Value Performing Clinician Facility 02-15-2023 09:30-0500 Body height 160 cm Patrice Lockhart MD Work Phone: [facility] 02-15-2023 09:30-0500 Body weight 70.81 kg Patrice Lockhart MD Work Phone: [facility] 02-15-2023 09:30-0500 Diastolic blood pressure 60 mm[Hg] Patrice Lockhart MD Work Phone: [facility] 02-15-2023 09:30-0500 Heart rate 60 /min Patrice Lockhart MD Work Phone: [facility] 02-15-2023 09:30-0500 SaO2% (BldA) [Mass fraction] 96 % Patrice Lockhart MD Work Phone: [facility] 02-15-2023 09:30-0500 Systolic blood pressure 148 mm[Hg] Patrice Lockhart MD Work Phone: [facility] 02-04-2023 20:10-0500 Blood Pressure Cuff Size DR TYLER MICHAUD MD [facility] 02-04-2023 20:10-[address] TYLER MICHAUD MD [facility] 02-04-2023 20:10-[address] TYLER MICHAUD MD [facility] 02-04-2023 20:10-0500 Diastolic Blood Pressure Non-Invasive 74 mm[Hg] DR TYLER MICHAUD MD [facility] 02-04-2023 20:10-0500 Heart rate 70 /min DR TYLER MICHAUD MD [facility] 02-04-2023 20:10-0500 Respiratory rate 18 /min DR TYLER MICHAUD MD [facility] 02-04-2023 20:10-0500 Systolic Blood Pressure Non-Invasive 188 mm[Hg] DR TYLER MICHAUD MD [facility] 02-04-2023 18:16-0500 Body temperature 97.52 [degF] DR TYLER MICHAUD MD [facility] 02-04-2023 18:16-0500 Body weight 71.[address] TYLER MICHAUD MD [facility] 02-04-2023 18:16-0500 Diastolic Blood Pressure Non-Invasive 75 mm[Hg] DR TYLER MICHAUD MD [facility] 02-04-2023 18:16-0500 Heart rate 82 /min DR TYLER MICHAUD MD [facility] 02-04-2023 18:16-0500 Respiratory rate 16 /min DR TYLER MICHAUD MD [facility] 02-04-2023 18:16-0500 Systolic Blood Pressure Non-Invasive 157 mm[Hg] DR TYLER MICHAUD MD [facility] 06-25-2022 09:29-0400 Diastolic blood pressure 60 mm[Hg] Hina Corinna PA-C Work Phone: [facility] 06-25-2022 09:29-0400 Systolic blood pressure 124 mm[Hg] Hina Corinna PA-C Work Phone: [facility] 06-25-2022 09:09-0400 Body height 160 cm Hina Jena PA-C Work Phone: [facility] 06-25-2022 09:09-0400 Body temperature 97.81 [degF] Hina Jena PA-C Work Phone: [facility] 06-25-2022 09:09-0400 Body weight 69.4 kg Hina Jena PA-C Work Phone: [facility] 06-25-2022 09:09-0400 Heart rate 68 /min Hina Corinna PA-C Work Phone: [facility] 06-25-2022 09:09-0400 SaO2% (BldA) [Mass fraction] 97 % Hina Jena PA-C Work Phone: [facility] 05-28-2022 15:20-0400 Body height 160 cm Patrice Lockhart MD Work Phone: [facility] 05-28-2022 15:20-0400 Body temperature 96.91 [degF] Patrice Lockhart MD Work Phone: [facility] 05-28-2022 15:20-0400 Body weight 71.67 kg Patrice Lockhart MD Work Phone: [facility] 05-28-2022 15:20-0400 Diastolic blood pressure 50 mm[Hg] Patrice Lockhart MD Work Phone: [facility] 05-28-2022 15:20-0400 Heart rate 63 /min Patrice Lockhart MD Work Phone: [facility] 05-28-2022 15:20-0400 SaO2% (BldA) [Mass fraction] 96 % Patrice Lockhart MD Work Phone: [facility] 05-28-2022 15:20-0400 Systolic blood pressure 142 mm[Hg] Patrice Lockhart MD Work Phone: [facility] 05-23-2022 09:47-0500 Body height 161.3 cm Patrice Lockhart MD Work Phone: [facility] 05-23-2022 09:47-0500 Body temperature 98.1 [degF] Patrice Lockhart MD Work Phone: [facility] 05-23-2022 09:47-0500 Body weight 71.67 kg Patrice Lockhart MD Work Phone: [facility] 05-23-2022 09:47-0500 Diastolic blood pressure 64 mm[Hg] Patrice Lockhart MD Work Phone: [facility] 05-23-2022 09:47-0500 Heart rate 64 /min Patrice Lockhart MD Work Phone: [facility] 05-23-2022 09:47-0500 Respiratory rate 14 /min Patrice Lockhart MD Work Phone: [facility] 05-23-2022 09:47-0500 SaO2% (BldA) [Mass fraction] 99 % Patrice Lockhart MD Work Phone: [facility] 05-23-2022 09:47-0500 Systolic blood pressure 134 mm[Hg] Patrice Lockhart MD Work Phone: [facility] 08-29-2021 14:44-0400 Body height 161 cm Sisi Gross APRN.MEDICAL ASSISTING PROGRAM DIRECTOR Work Phone: [facility] 08-29-2021 14:44-0400 Body weight 74.03 kg Sisi Gross APRN.MEDICAL ASSISTING PROGRAM DIRECTOR Work Phone: [facility] 08-29-2021 14:44-0400 Diastolic blood pressure 62 mm[Hg] Sisi Gross APRN.MEDICAL ASSISTING PROGRAM DIRECTOR Work Phone: [facility] 08-29-2021 14:44-0400 Systolic blood pressure 158 mm[Hg] Sisi Gross APRN.MEDICAL ASSISTING PROGRAM DIRECTOR Work Phone: [facility] Encounters Encounter Date Encounter Type Care Provider Facility Start: 02-24-2023 End: 02-25-2023 ambulatory GIL TOBIN Facility:B Start: 02-24-2023 End: 02-24-2023 Patient encounter procedure GIL LYNDAKRISTA DAMIAN [facility] Start: 02-15-2023 End: 02-15-2023 ambulatory PATRICE LOCKHART Facility:[facility] Start: 02-15-2023 End: 02-15-2023 Patient encounter procedure Patrice Lockhart MD Work Phone: General Surgery Procedures Date Procedure Procedure Detail Performing Clinician Start: 10-25-2022 Us transvaginal Beth Taveras MD Work Phone: Start: 09-16-2022 Screening digital br east tomosynthesis bi Rosario Waller SWITCH ENGINEER.MEDICAL ASSISTING PROGRAM DIRECTOR Work Phone: Start: 05-27-2022 Us abdominal real ti me w/image limited Patrice Lockhart MD Work Phone: Start: 09-06-2021 JESSICA SCREENING W LESLI Gross SWITCH ENGINEER.MEDICAL ASSISTING PROGRAM DIRECTOR Work Phone: Start: 03-17-2016 Screening mammography M KELLY TOBIN DO Plan of Treatment Date Care Activity Detail Author Start: 09-29-2029 Urine microalbumin profile DTaP,Tdap,Td Vaccine (2 - Td or Tdap) [facility] Start: 06-05-2025 DIABETES SCREEN DIABETES SCREEN [facility] Start: 06-05-2025 Diabetes Screening Diabetes Screening [facility] Start: 11-15-2022 Covid-19 Vaccine ( season) Covid-19 Vaccine ( season) [facility] Start: 11-15-2022 Influenza vaccination [facility] Start: 03-17-2022 ADVANCE DIRECTIVE DISCUSSION ADVANCE DIRECTIVE DISCUSSION [facility] Start: 03-17-2022 DEPRESSION ASSESSMENT DEPRESSION ASSESSMENT [facility] Start: 11-15-2021 Influenza vaccination INFLUENZA (#1) [facility] Start: 08-14-2021 COVID-19 VACCINE (5 - Booster for Moderna series) COVID-19 VACCINE (5 - Booster for Moderna series) [facility] Start: 05-10-2021 COVID-19 VACCINE (4 - Booster for Moderna series) COVID-19 VACCINE (4 - Booster for Moderna series) [facility] Start: 03-17-2021 ADVANCE DIRECTIVE DISCUSSION ADVANCE DIRECTIVE DISCUSSION [facility] Start: 03-04-2021 COVID-19 VACCINE (4 - Booster for Moderna series) COVID-19 VACCINE (4 - Booster for Moderna series) [facility] Start: 10-19-2016 DIABETES SCREEN DIABETES SCREEN [facility] Start: 2006 PNEUMOCOCCAL: 65+ (1 - PCV) PNEUMOCOCCAL: 65+ (1 - PCV) [facility] Start: 2001 RSV Vaccine (1 - 1-dose 60+ series) RSV Vaccine (1 - 1-dose 60+ series) [facility] Start: 1991 SHINGRIX VACCINE (1 of 2) SHINGRIX VACCINE (1 of 2) [facility] Start: 02-29-1960 Urine microalbumin profile DTAP,TDAP,TD (1 - Tdap) [facility] Start: 1959 ANNUAL PCP TEAM CHRONIC DISEASE VISIT ANNUAL PCP TEAM CHRONIC DISEASE VISIT [facility] Start: 1959 BP CONTROLLED (<130/80) BP CONTROLLED (<130/80) [facility] Start: 1953 Adult depression screening assessment DEPRESSION SCREENING [facility] End: 09-28-2022 JESSICA SCREENING W LESLI JESSICA SCREENING W LESLI Radiology Routine Encounter for screening mammogram for breast cancer 1 Occurrences starting 08/29/2021 until 09/28/2022 [facility] Work Phone: Immunizations Immunization Date Immunization Notes Care Provider Hafsa ali 12-21-2021 influenza virus vaccine, unspecified formulation GIL LYNDAKRISTA DO [facility] 06-19-2021 SARS-CoV-2 (COVID-19 ) mRNA-1273 vaccine GIL TOBIN DO [facility] 01-07-2021 SARS-CoV-2 (COVID-19 ) mRNA-1273 vaccine GIL TOBIN DO [facility] 12-19-2020 influenza virus vaccine, unspecified formulation GIL TOBIN DO [facility] 05-13-2020 SARS-CoV-2 (COVID-19 ) mRNA-1273 vaccine GIL TOBIN DO [facility] Payers Date Payer Category Payer Unknown ANTHEM BLUE CROS S AND BLUE SHIELD ANTHEM MEDIBLUE O [id number] 2018-Present [phone] [address] [place] [address] O [id number] 2018 Unknown ANTHYOSVANY MINER CROS S AND BLUE SHIELD ANTHYOSVANY MARSHALL O [id number] 2018-Present [phone] [address] [place] [address] O [id number] 2018 Unknown [id number] 1940 Unknown [id number] 1940 Unknown [id number] 1941 Unknown [id number] 1941 Unknown [id number] 1941 Unknown [id number] 1941 Unknown [id number] Social History Date Type Detail Facility Start: 10-16-2018 End: 05-28-2022 Never smoked tobacco (finding) [facility] Functional Status Date Assessment Result Facility 02-04-2023 Functional Status Awake [facility] 02-04-2023 Functional Status Standard Safet y ID band on, Allergy Band on, Call device within reach, Bed in low position, Wheels locked, Visitor at bedside [facility] Mental Status Date Assessment Result Facility 02-04-2023 Mental Status Orientation Oriented x 4 [facility] 02-04-2023 [facility] Clinical Notes 08-14-2013 to 02-15-2023 Patrice Lockhart MD - 02/15/2023 9:52 AM ESTLetter - Mammography Coordinator - 09/18/2022 7:48 AM Leonarda Muro Mammo Tech - 09/16/2022 9:30 AM EDTPatient Instructions Note Date & Type Note Facility 02-15-2023 Note HNO ID: [id number] Author: Patrice Lockhart MD Service: ? Author Type: Physician Type: Progress Notes Filed: 02/16/2023 4:28 PM Note Text: HISTORY AND PHYSICAL Beatriz Snowden 1940 REFERRING PHYSICIAN: CHIEF COMPLAINT: Abdominal Pain HPI: The patient is a 82 year old female with a complaint of bilateral flank pain pain up towards the rib region. The patient notes the pain has been going on for approximately a month. She notes it is at times sharp but most the time its intermittent and dull at a 3-4 out of 10 level. The pain does not seem to radiate to any other areas. The patient notes that she did have a fall but felt she struck her left lateral abdomen area and not the right area. She also notes she has a chronic cough. She feels the fall was due to some dizziness likely from having increased blood pressure medication by her chief pilot. She asked if she should continue taking her blood pressure medication. Her blood pressure today was 140/60 so I recommended she contact her chief pilot office. With the patient's symptoms that she presented to the [facility] emergency department on February 04, 2023. She states they did a CT scan of her abdomen and had laboratory tests which were unremarkable. She denies that she had a or does not recall that she had a chest x-ray. She denies any current GI complaints such as epigastric symptoms nausea vomiting dysphagia reflux and denies constipation or diarrhea. I performed screening colonoscopy in 2020 which demonstrated 2 small polyps and diverticulosis. PAST MEDICAL HISTORY Diagnosis Date Abdominal pain, unspecified site Arthritis Diverticulosis of colon (without mention of hemorrhage) HTN (hypertension) Internal hemorrhoids without mention of complication Mixed hyperlipidemia Paroxysmal atrial fibrillation (HCC) Sinus bradycardia TIA (transient ischemic attack) 08/2017 Unspecified essential hypertension PAST SURGICAL HISTORY Procedure Laterality Date COLONOSCOPY FLX DX W/COLLJ SPEC WHEN PFRMD 02/25/2008 COLONOSCOPY FLX DX W/COLLJ SPEC WHEN PFRMD 10/03/2020 LAPAROSCOPIC CHOLECYSTECTOMY 06/14/2022 PAST SURGICAL HISTORY OF 03/17/2000 thumb surgery -both thumbs SIGMOIDOSCOPY FLX DX W/COLLJ SPEC BR/WA IF PFRMD 12/31/2011 Current Outpatient Medications Medication Sig irbesartan (AVAPRO) 300 mg tablet Take 300 mg by mouth once daily. hydroCHLOROthiazide 25 mg tablet Take 25 mg by mouth once daily. apixaban (ELIQUIS) 5 mg tab(s) Take by mouth twice daily. triamcinolone acetonide topical 0.5 % ointment Apply to affected area as directed. Once weekly. Daily for up to 2 weeks prn flares (Patient taking differently: Apply to affected area as directed. Once weekly. Daily for up to 2 weeks prn flares) hydrALAZINE (APRESOLINE) 25 mg tablet Take 25 mg by mouth three times daily. MAGNESIUM CITRATE ORAL Take 200 mg by mouth. zinc sulfate (ZINC-220 ORAL) Take by mouth. Every other week metoprolol tartrate, short acting, (LOPRESSOR) 25 mg tablet Take 12.5 mg by mouth twice daily. rosuvastatin (CRESTOR) 10 mg tablet 10 mg. (Patient not taking: Reported on 02/15/2023) No current facility-administered medications for this visit. ALLERGIES: Lipitor [Atorvastatin] and Shellfish PERSONAL HISTORY: Social History Tobacco Use Smoking status: Never Smokeless tobacco: Never Vaping Use Vaping Use: Never used Substance Use Topics Alcohol use: No Drug use: No FAMILY HISTORY: FAMILY HISTORY Problem Relation Age of Onset Stroke Mother Cancer Father lung Cancer Brother lung No Known Problems Maternal Grandmother No Known Problems Maternal Grandfather No Known Problems Paternal Grandmother No Known Problems Paternal Grandfather REVIEW OF SYMPTOMS: The review of systems data was entered by the nurse and reviewed by me There are no exam notes on file for this visit. PHYSICAL EXAMINATION: General: The patient is 82 year old female, well nourished, well hydrated in no acute distress. The patient is oriented to time, place, and person. VITALS: Blood pressure 148/60, pulse 60, height 160 cm (5' 3 ), weight 70.8 kg (156 lb 1.6 oz), SpO2 96%. HEENT: Normal cephalic, ataumatic, pupils are equally round, sclera are anicteric, mucous membranes are moist, oropharynx is clear. Neck has no masses, asymmetry or lymphadenopathy. Thyroid is unremarkable. Respiratory: Clear to auscultation and percussion. Normal respiratory excursion and pattern. Cardiac: Examination is regular rate and rhythm. Abdominal exam: Soft, nontender, with no palpable masses. No hepatosplenomegaly. No palpable hernias. No true CVA tenderness, some tenderness more so on the right than the left side felt to be more likely consistent with costochondritis in the lower rib area versus a musculoskeletal strain Rectal exam: exam deferred Extremities: no clubbing, cyanosis or edema. No adenopathy. Other: LABORAT (more content not included)... [facility] 02-15-2023 History of Present illness Narrative HISTORY AND PHYSICAL Beatriz Snowden 1940 REFERRING PHYSICIAN: CHIEF COMPLAINT: Abdominal Pain HPI: The patient is a 82 year old female with a complaint of bilateral flank pain pain up towards the rib region. The patient notes the pain has been going on for approximately a month. She notes it is at times sharp but most the time its intermittent and dull at a 3-4 out of 10 level. The pain does not seem to radiate to any other areas. The patient notes that she did have a fall but felt she struck her left lateral abdomen area and not the right area. She also notes she has a chronic cough. She feels the fall was due to some dizziness likely from having increased blood pressure medication by her chief pilot. She asked if she should continue taking her blood pressure medication. Her blood pressure today was 140/60 so I recommended she contact her chief pilot office. With the patient's symptoms that she presented to the [facility] emergency department on February 04, 2023. She states they did a CT scan of her abdomen and had laboratory tests which were unremarkable. She denies that she had a or does not recall that she had a chest x-ray. She denies any current GI complaints such as epigastric symptoms nausea vomiting dysphagia reflux and denies constipation or diarrhea. I performed screening colonoscopy in 2020 which demonstrated 2 small polyps and diverticulosis. PAST MEDICAL HISTORY Diagnosis Date Abdominal pain, unspecified site Arthritis Diverticulosis of colon (without mention of hemorrhage) HTN (hypertension) Internal hemorrhoids without mention of complication Mixed hyperlipidemia Paroxysmal atrial fibrillation (HCC) Sinus bradycardia TIA (transient ischemic attack) 08/2017 Unspecified essential hypertension PAST SURGICAL HISTORY Procedure Laterality Date COLONOSCOPY FLX DX W/COLLJ SPEC WHEN PFRMD 02/25/2008 COLONOSCOPY FLX DX W/COLLJ SPEC WHEN PFRMD 10/03/2020 LAPAROSCOPIC CHOLECYSTECTOMY 06/14/2022 PAST SURGICAL HISTORY OF 03/17/2000 thumb surgery -both thumbs SIGMOIDOSCOPY FLX DX W/COLLJ SPEC BR/WA IF PFRMD 12/31/2011 Current Outpatient Medications Medication Sig irbesartan (AVAPRO) 300 mg tablet Take 300 mg by mouth once daily. hydroCHLOROthiazide 25 mg tablet Take 25 mg by mouth once daily. apixaban (ELIQUIS) 5 mg tab(s) Take by mouth twice daily. triamcinolone acetonide topical 0.5 % ointment Apply to affected area as directed. Once weekly. Daily for up to 2 weeks prn flares (Patient taking differently: Apply to affected area as directed. Once weekly. Daily for up to 2 weeks prn flares) hydrALAZINE (APRESOLINE) 25 mg tablet Take 25 mg by mouth three times daily. MAGNESIUM CITRATE ORAL Take 200 mg by mouth. zinc sulfate (ZINC-220 ORAL) Take by mouth. Every other week metoprolol tartrate, short acting, (LOPRESSOR) 25 mg tablet Take 12.5 mg by mouth twice daily. rosuvastatin (CRESTOR) 10 mg tablet 10 mg. (Patient not taking: Reported on 02/15/2023) No current facility-administered medications for this visit. ALLERGIES: Lipitor [Atorvastatin] and Shellfish PERSONAL HISTORY: Social History Tobacco Use Smoking status: Never Smokeless tobacco: Never Vaping Use Vaping Use: Never used Substance Use Topics Alcohol use: No Drug use: No FAMILY HISTORY: FAMILY HISTORY Problem Relation Age of Onset Stroke Mother Cancer Father lung Cancer Brother lung No Known Problems Maternal Grandmother No Known Problems Maternal Grandfather No Known Problems Paternal Grandmother No Known Problems Paternal Grandfather REVIEW OF SYMPTOMS: The review of systems data was entered by the nurse and reviewed by me There are no exam notes on file for this visit. PHYSICAL EXAMINATION: General: The patient is 82 year old female, well nourished, well hydrated in no acute distress. The patient is oriented to time, place, and person. VITALS: Blood pressure 148/60, pulse 60, height 160 cm (5' 3 ), weight 70.8 kg (156 lb 1.6 oz), SpO2 96%. HEENT: Normal cephalic, ataumatic, pupils are equally round, sclera are anicteric, mucous membranes are moist, oropharynx is clear. Neck has no masses, asymmetry or lymphadenopathy. Thyroid is unremarkable. Respiratory: Clear to auscultation and percussion. Normal respiratory excursion and pattern. Cardiac: Examination is regular rate and rhythm. Abdominal exam: Soft, nontender, with no palpable masses. No hepatosplenomegaly. No palpable hernias. No true CVA tenderness, some tenderness more so on the right than the left side felt to be more likely consistent with costochondritis in the lower rib area versus a musculoskeletal strain Rectal exam: exam deferred Extremities: no clubbing, cyanosis or edema. No adenopathy. Other: LABORATORY VALUES: As Noted RADIOLOGIC STUDIES: As Noted Assessment IMPRESSION: Chronic cough, CVA tenderness, no obvious GI/general surgical etiology PLAN: I will ask my office to have the patient's CT scan images and report noted from [place] emergency department. I will also ask for recent letter from her chief pilot office which is Dr. Cunningham's office in [place]. Given the patient's chronic cough I ordered a chest x-ray. Diagnoses: (R05.2) Subacute cough (primary encounter diagnosis) My findings have been communicated to Dr. Gil Tobin IV, DO via shared medical record. This note will be forwarded to Dr. Gil Tobin IV, DO. Return to Clinic: The patient is instructed to follow-up with me as needed. Patrice Lockhart MD documented in this encounter [facility] 02-04-2023 Hospital Discharge instructions Patient Education 02/04/2023 21:48:15 Pain, Acute, Uncertain Cause Acute Pain, Uncertain Cause Pain can be caused by many conditions that range from very minor to very serious. In some cases, though, pain comes and goes with no apparent cause. We were not able to find the exact cause for your pain. At this time there is no sign of any serious illness causing your pain. More tests may be needed to determine the cause. In many cases, pain like this goes away by itself. Home care Take any medicines as prescribed. If another medicine was not prescribed for pain, you can take an vvcn-wbw-zatlhwj pain medicine such as ibuprofen or acetaminophen. Use these as directed on the label. Follow-up care Follow up with your healthcare provider or our staff as directed. When to seek medical advice Call your healthcare provider for any of the following: Pain changes in pattern Pain doesn't lessen or gets worse New symptoms appear Fever of 100.4 F (38 C) or higher, or as directed by your healthcare provider [id number] [employer]. [address] [place] [address], [place] [address]. All rights reserved. This information is not intended as a substitute for professional medical care. Always follow your healthcare professional's instructions. Follow Up Care 02/04/2023 18:10:14 With:Your Car Audio Installer Address: When:1-2 days [facility] 02-04-2023 Note Discharge Instructions Thank you for allowing [facility] to assist you with your healthcare needs. The following is important discharge information regarding your hospital visit. Diagnosis from Today's Visit Abdominal pain Flank pain Pain radiating to left flank What to Do Next Instructions from Your Care Team Please Follow-up with your chief pilot tomorrow to discuss your hydralazine dosing. No qualifying data available. Post Acute Orders No qualifying data available. You Need to Schedule the Following Appointments Follow Up with Your Car Audio Installer When Within 1-2 days Where: Allergies Lipitor (Diarrhea) Shellfish (Unknown) Medications Please ask your primary doctor or pharmacist before taking any other medication not listed, including over the counter drugs, herbal medications, vitamins and or supplements as they may interact with your home medications. What How Much When Instructions Last Dose Unchanged apixaban (Eliquis 5 mg oral tablet) Two (2) times a day Unchanged bifidobacterium-lactobacillus (Daily Digestive 5X Probiotic) 1 cap by mouth Once a day Unchanged cholecalciferol (Vitamin D (3) 45 units oral capsule) See instructions Unchanged etodolac (etodolac 300 mg oral capsule) 1 cap by mouth Two (2) times a day Unchanged herbal/ nutritional product (Quercitin) Unchanged hydrALAZINE (hydrALAZINE 25 mg oral tablet) 1 tab(s) by mouth Three (3) times a day Unchanged hydroCHLOROthiazide (hydroCHLOROthiazide 25 mg oral tablet) 1 tab(s) by mouth Once a day Duration: 90 Days Unchanged irbesartan (irbesartan 300 mg oral tablet) 1 tab(s) by mouth Once a day Duration: 90 Days Unchanged magnesium oxide (Magnesium 250 mg tablet) by mouth Once a day Unchanged metoprolol (metoprolol tartrate 25 mg oral tablet) 0.5 tab(s) by mouth Two (2) times a day Duration: 90 Days Unchanged zinc sulfate (Zinc) by mouth Once a day Please take this list to your next doctor s visit. Bring all medications you take, including over the counter medications, herbals and other supplements with you to your doctor s visit. Patients and families are reminded to discard old lists and to update any records with all medication providers or retail pharmacies. Education Materials Acute Pain, Uncertain Cause Pain can be caused by many conditions that range from very minor to very serious. In some cases, though, pain comes and goes with no apparent cause. We were not able to find the exact cause for your pain. At this time there is no sign of any serious illness causing your pain. More tests may be needed to determine the cause. In many cases, pain like this goes away by itself. Home care Take any medicines as prescribed. If another medicine was not prescribed for pain, you can take an smfm-edz-bcnmuvm pain medicine such as ibuprofen or acetaminophen. Use these as directed on the label. Follow-up care Follow up with your healthcare provider or our staff as directed. When to seek medical advice Call your healthcare provider for any of the following: Pain changes in pattern Pain doesn't lessen or gets worse New symptoms appear Fever of 100.4 F (38 C) or higher, or as directed by your healthcare provider [phone] [employer]. [address] [place] [address], [place] [address]. All rights reserved. This information is not intended as a substitute for professional medical care. Always follow your healthcare professional's instructions. Additional Information VACCINATE! IT SAVES LIVES! Members of the community who have not yet received the COVID-19 vaccine and would like to receive it can visit one of [facility] vaccine clinics. There are many vaccine clinic locations within the [facility]. For locations and available times, please visit www.gettheshot.coronavirus.[place].g [email or web address] It is important to note that some COVID mobile vaccine clinics are held outdoors and may be canceled in rainy or stormy conditions. To learn more about pediatric vaccinations (ages 5-11), we invite you to visit the [employer] webpage. https://www.[employer].org/pa ges/6028-Ikqjx-Tbyolnsbdem-Freque ojod-Qsjqt-Wepwgdkvw.html To learn more about the COVID-19 vaccine, we invite you to visit the CDC website for a list of frequently asked questions. https://www.cdc.gov/coronavirus/2 019-ncov/vaccines/faq.html [facility] Patient Portal Access Instructions: Stay connected with your healthcare team and access your personal medical information anytime with the [facility] Patient Portal. If you would like a full copy of your medical records please contact the [facility] Medical Records Department Friday through Friday between 8a.m. and 4:30p.m. Please follow the directions below to access the portal: 1.Access the email account you provided upon registration to the hospital.2.Look for an invitation email from [facility].3.Open the email and access the invitation link: Accept Invitation to [facility]4.Fill in the required major to create your account. Sign into www.[employer] with your username and password that you created in the above steps to stay up to date. You can then view a summary of results, a summary of your visits, and the ability to download your summaries to your computer or send the information securely to a physician. Remember that your healthcare information is confidential, so carefully consider who you will allow to register on the [facility] Patient Portal for access to your information. You can also access the [facility] Patient Portal on the [employer] cailin. Simply click on Health Records under Health Data and then click on the [facility] logo. HOW TO SAFELY DISPOSE OF PRESCRIPTION MEDICATIONS Please use one of the following methods to safely dispose of your unused medications. 1.Use a drug disposal kit: the drug disposal pouch allows you to safely discard your old and unused drugs. Ask your nurse to give you one when you are discharged.2.Visit a local take-back location: Many local pharmacies and police departments have programs that collect old and unwanted prescription drugs. Call your local pharmacy or go to http://Gauzy.Kavam.com/5E4Ow4s to find one close to you.3.Make use of household items: Use cat litter or old coffee grounds to dispose medications if other options are not available. Mix your drugs with these household products, seal them in an airtight container and throw it into the garbage. Call [facility]: [phone] to be sure your drugs can be disposed of in this way. Some medicines may require a different approach.4.Never flush your medications down the toilet. IF YOU HAVE BEEN PRESCRIBED AN OPIOIDS FOR PAIN If you have been prescribed an opioid (such as hydrocodone, oxycodone or morphine), it is critical to understand the possible side effects and risks of opioid pain medications. Even when taken as directed, opioids can have several side effects including: Tolerance, meaning you might need to take more of a medication for the same pain relief. Nausea, vomiting and/or constipation. Sleepiness, dizziness, dry mouth, confusion, depression or itching. Physical dependence, meaning you have withdrawal symptoms when a medication is stopped ? this can develop within a few days. KNOW YOUR RESPONSIBILITIES It is important to know exactly how much and how often to take the opioid pain medications you are prescribed. Never take opioids in higher amounts or more often than prescribed. Do not combine opioids with alcohol or other drugs that cause drowsiness, such as benzodiazepines, also known as benzos, including diazepam and alprazolam, muscle relaxants or sleep aids. Never sell or share prescription opioids. This is illegal. Store opioids in a secure place and out of reach of others (including children, family, friends and visitors). The last page(s) of this document has been signed and retained as a CHART COPY Signatures Patient Education Materials Pain, Acute, Uncertain Cause Medication Leaflets My discharge plan and instructions have been reviewed and explained to me and I,BEATRIZ SNOWDEN understand my current condition and have read and understand these discharge instructions. I have received a written copy of the plan/instructions. If I have questions, I am aware that I should contact my doctor. 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 Multiplanar reformatted images are provided for review. Automated exposure control, iterative reconstruction, and/or weight based adjustment of the mA/kV was utilized to reduce the radiation dose to as low as reasonably achievable. COMPARISON: None HISTORY: ORDERING SYSTEM PROVIDED HISTORY: Reason for Exam: bilateral flank pain, subjective fever FINDINGS: Limited images of the lower thorax are noncontributory. The liver is normal. The spleen, adrenal glands, and pancreas are within normal limits. The gallbladder is normal. The kidneys are symmetric in size and excretion. The large and small bowel are normal in caliber. The appendix is normal. No free intraperitoneal fluid or air is identified. There is no lymphadenopathy. The aorta is atherosclerotic, but normal in caliber. The bladder is incompletely distended without focal mass. The uterus is visualized. No adnexal mass. There is no visible fracture or aggressive osseous lesion. Degenerative changes are seen in the spine. There is grade 1 anterolisthesis of L4 on L5. IMPRESSION: No acute abnormality. Interpreted by: Michael Estrella MD Preliminary Report By: Michael Estrella MD Electronically signed By Michael Estrella MD Dictated Date: 02/04/2023 8:18:54 PM Prelim Date: 02/04/2023 8:23:39 PM Sign Date: 02/04/2023 8:23:39 PM Ordering Provider: ZAYDA HDZ [facility] 02-04-2023 Note Sinus rhythm Electronic Signature: MD KEILY, TYLER GONZALES 02/04/2023 20:33:27 [facility] [place] 02-04-2023 SARS-CoV-2 (COVID-19) RNA SANDRA+probe Ql (Nph) Negative *NA* (02/04/23 6:56 PM) AO Auto Urine SS 01-24-2023 Note . MICRO - Microbiology PROCEDURE: Urine Culture [*1] SOURCE: Urine, Clean Catch BODY SITE: COLLECTED DATE/TIME: 01/23/2023 15:39 EST RECEIVED DATE/TIME: 01/23/2023 18:49 EST START DATE/TIME: 01/23/2023 18:49 EST FREE TEXT SOURCE: FINAL REPORTS Final Report [] Verified Date/Time/Personnel: 01/24/2023 14:09 EST <10,000 cfu/ml. No Significant growth. Sensitivity not indicated. Performing Locations *1: This test was performed at: [address], [address] [place] [address] ([place]) 01-19-2023 Note . MICRO - Microbiology PROCEDURE: Urine Culture [*1] SOURCE: Urine BODY SITE: COLLECTED DATE/TIME: 01/17/2023 17:02 EDT RECEIVED DATE/TIME: 01/18/2023 18:08 EDT START DATE/TIME: 01/18/2023 18:08 EDT FREE TEXT SOURCE: FINAL REPORTS Final Report [] Verified Date/Time/Personnel: 01/19/2023 14:34 EST 10,000 - 50,000 cfu/ml Multiple bacterial morphotypes present. Probable Contamination. Suggest recollection if clinically indicated. Performing Locations *1: This test was performed at: [address] ([place]) 10-23-2022 Note HNO ID: [id number] Author: Beth Taveras MD Service: ? Author Type: Physician Type: Progress Notes Filed: 10/23/2022 11:00 AM Note Text: Home Care Liaison offered: Patient declines. Beatriz Snowden is a 82 year old female who presents for problem visit for c/o pelvic pain/low abdominal pain fora bout 2 weeks. . HPI: Lasts for a few minutes. Starts when she starts to have a BM and then by time BM is done it is over. Hasn't happened other times. No blood in stools or dark tarry stools. No new meds. Up to date on colonoscopy. No vaginal bleeding. Has had similar type pain in the past. OB History T0 L3 SAB0 IAB0 Ectopic0 Multiple0 Live Births0 Dyno Technician History LMP: Postmenopausal Age at Menarche: Age at First : Age at Menopause: Dyno Technician History Comments: Sexual Activity: Not Currently; Male Contraception: No contraception data on record PAST MEDICAL HISTORY Diagnosis Date Abdominal pain, unspecified site Arthritis Diverticulosis of colon (without mention of hemorrhage) HTN (hypertension) Internal hemorrhoids without mention of complication Mixed hyperlipidemia Paroxysmal atrial fibrillation (HCC) Sinus bradycardia TIA (transient ischemic attack) 08/2017 Unspecified essential hypertension PAST SURGICAL HISTORY Procedure Laterality Date COLONOSCOPY FLX DX W/COLLJ SPEC WHEN PFRMD 02/25/2008 COLONOSCOPY FLX DX W/COLLJ SPEC WHEN PFRMD 10/03/2020 LAPAROSCOPIC CHOLECYSTECTOMY 06/14/2022 PAST SURGICAL HISTORY OF 03/17/2000 thumb surgery -both thumbs SIGMOIDOSCOPY FLX DX W/COLLJ SPEC BR/WA IF PFRMD 12/31/2011 FAMILY HISTORY Problem Relation Age of Onset Stroke Mother Cancer Father lung Cancer Brother lung No Known Problems Maternal Grandmother No Known Problems Maternal Grandfather No Known Problems Paternal Grandmother No Known Problems Paternal Grandfather Social History Tobacco Use Smoking status: Never Smokeless tobacco: Never Vaping Use Vaping Use: Never used Substance Use Topics Alcohol use: No Drug use: No Current Outpatient Medications Medication Sig irbesartan (AVAPRO) 300 mg tablet Take 300 mg by mouth once daily. hydroCHLOROthiazide 25 mg tablet Take 25 mg by mouth once daily. apixaban (ELIQUIS) 5 mg tab(s) Take by mouth twice daily. triamcinolone acetonide topical 0.5 % ointment Apply to affected area as directed. Once weekly. Daily for up to 2 weeks prn flares (Patient taking differently: Apply to affected area as directed. Once weekly. Daily for up to 2 weeks prn flares) hydrALAZINE (APRESOLINE) 25 mg tablet Take 25 mg by mouth three times daily. MAGNESIUM CITRATE ORAL Take 200 mg by mouth. zinc sulfate (ZINC-220 ORAL) Take by mouth. Every other week rosuvastatin (CRESTOR) 10 mg tablet 10 mg. metoprolol tartrate, short acting, (LOPRESSOR) 25 mg tablet Take 12.5 mg by mouth twice daily. No current facility-administered medications for this visit. Allergies As of Date: 10/23/2022 Allergen Noted Reaction LIPITOR [ATORVASTATIN] 10/03/2020 GI Upset SHELLFISH 12/03/2006 GI Upset Fully Assessed 10/23/2022 REVIEW OF SYSTEMS Abdomen: No bloating, early satiety, indigestion, or increased flatulence. No abdominal pain, nausea, vomiting, diarrhea, or constipation. Bladder: No dysuria, gross hematuria, urinary frequency, urinary urgency, or incontinence. Allergies and current medication updated:Yes EXAM: BP 102/60 Wt 156 lb (70.8kg) GENERAL: pleasant, female in no apparent distress ABDOMEN: soft, non-tender, no hernia, and no masses PELVIC: external genitalia normal, normal Bartholin's glands, urethra, [place]'s glands, no vulvar lesions, no cervical lesions, good vaginal support, physiologic discharge present, normal appearing perineal body and perianal region, atrophic introitus BIMANUAL: uterus normal size, shape and consistency, no adnexal masses, and non-tender ASSESSMENT AND PLAN: Pelvic pain/abd pain only w/ some BMs but not everyday. Reassured, check pelvic US. If normal then monitor for now. If worsens f/u w/ PCP or GI. She is comfortable w/ plan Beth Taveras MD [facility] 09-18-2022 Miscellaneous Notes September 18, 2022 PID: [id number] Beatriz Snowden [id number] [place] [address] Dear Ms. Snowden, We are pleased to inform you that the results of your recent breast imaging exam on 09/16/2022 are normal. Early detection of cancer is very important. We also understand recommendations regarding breast cancer screening are controversial. Please discuss with your primary care provider which strategy is best for you and whether a mammogram is right for you. Your imaging studies and report will be kept on file at [facility] as part of your permanent medical record and are available for your continuing care. Thank you for allowing us to help in meeting your health care needs. Sincerely, Dr. Duncan Interpreting Radiologist [facility] (Normal over 40) documented in this encounter [facility] 09-16-2022 Note HNO ID: [id number] Author: Alethea Diaz Service: ? Author Type: Encyclopedia Research Worker Type: Progress Notes Filed: 09/16/2022 10:01 AM Note Text: Radiology Service Progress Note PATIENT NAME: Beatriz Snowden DATE OF SERVICE: September 16, 2022 TIME: 10:00 AM PATIENT IDENTITY VERIFICATION COMPLETED USING TWO (2) IDENTIFIERS: Name and Date of confirmed by patient verbally. FALL SCREENING: Has the patient had 2 falls in the last year or 1 fall with injury or currently using an Ambulatory Assistive Device (Walker, Cane, Wheelchair, Crutches, etc.)? No PATIENT GENDER DATA: Female. status: : No status: NO. PATIENT RELEVANT IMPLANT DATA REVIEWED: Not Applicable RADIOLOGY DEPARTMENT: Mammography PERIPHERAL IV DATA: Not applicable SIGNED BY: Alethea Diaz September 16, 2022 10:00 AM [facility] 09-16-2022 Note . MICRO - Microbiology PROCEDURE: Urine Culture [*1] SOURCE: Urine BODY SITE: COLLECTED DATE/TIME: 09/11/2022 13:58 EDT RECEIVED DATE/TIME: 09/14/2022 14:22 EDT START DATE/TIME: 09/14/2022 14:22 EDT FREE TEXT SOURCE: FINAL REPORTS Final Report [] Verified Date/Time/Personnel: 09/16/2022 07:51 EDT <10,000 cfu/ml. No Significant growth. Sensitivity not indicated. PRELIMINARY REPORTS Preliminary Report [] Verified Date/Time/Personnel: 09/15/2022 09:15 EDT No growth to date Performing Locations *1: This test was performed at: [facility], [address] [place] [address], [id number] , [facility] ([place]) 09-16-2022 History of Present illness Narrative Radiology Service Progress Note PATIENT NAME: Beatriz Snowden DATE OF SERVICE: September 16, 2022 TIME: 10:00 AM PATIENT IDENTITY VERIFICATION COMPLETED USING TWO (2) IDENTIFIERS: Name and Date of confirmed by patient verbally. FALL SCREENING: Has the patient had 2 falls in the last year or 1 fall with injury or currently using an Ambulatory Assistive Device (Walker, Cane, Wheelchair, Crutches, etc.)? No PATIENT GENDER DATA: Female. status: : No status: NO. PATIENT RELEVANT IMPLANT DATA REVIEWED: Not Applicable RADIOLOGY DEPARTMENT: Mammography PERIPHERAL IV DATA: Not applicable SIGNED BY: Alethea Diaz September 16, 2022 10:00 AM documented in this encounter [facility] 06-25-2022 Note HNO ID: [id number] Author: Hina Weinstein PA-C Service: ? Author Type: Physician Glass Products Inspector Type: Progress Notes Filed: 06/25/2022 12:28 PM Note Text: FOLLOW UP VISIT - CHOLECYSTECTOMY NAME: Beatriz Snowden [facility] NO.: [id number] DATE OF SERVICE: 06/25/2022 : 1940 REFERRING PHYSICIAN: Gil Tobin IV, DO Beatriz is a patient I am following with Dr. Lockhart for a complaint of right upper quadrant pain. Dr. Lockhart performed a laparoscopic cholecystectomy with intraoperative cholangiogram on 06/14/22. Pathology showed cholelithiasis. The patient currently notes no complaints. her appetite has been good. she denies fever, chills or abdominal pain. she does note some minimal incisional discomfort. VITALS: Blood pressure (!) 112/40, pulse 68, temperature 36.6 ?C (97.8 ?F), height 160 cm (5' 3 ), weight 69.4 kg (153 lb), SpO2 97 %. On examination, the abdomen is benign. The incisions are healing well without signs of infection or inflammation. Assessment IMPRESSION: status post laparoscopic cholecystectomy with intraoperative cholangiogram PLAN: If the patient notes any problems, she should contact me immediately. she may return to her regular activities as tolerated, with the exception of no lifting greater than 20 pounds for the next 3 weeks. The patient is to contact me immediately is she experiences any of her preoperative symptoms. We discussed that occasional right up quadrant symptoms similar to the preoperative complaints can occur in the first couple of weeks post operatively. If this persists beyond the first 2-3 weeks, they should contact our office. Diagnoses: (K80.20) Gallstones (primary encounter diagnosis) Return to Clinic: The patient is instructed to follow-up with me as needed. Hina Weinstein PA-C [facility] 06-25-2022 Instructions Hina Weinstein PA-C - 06/25/2022 9:26 AM EDT The following instructions are important for you related to your office visit today with the [facility] General Surgeons. INSTRUCTIONS FOLLOWING YOU RECENT GALLBLADDER SURGERY You should be returning to your regular diet, If you have having persistent issues with tolerating your diet, please contact our office It is not unusual to have pain similar to your gallbladder symptoms for the first 1-2 weeks following surgery. If this persists beyond 2 weeks, contact the office. It is not unusual to have loose stools following surgery. This is usually self limited and related to the antibiotics that were given during your surgical procedure. Fiber supplementation and yogurt with active cultures may help you return to regular bowel activity. If you note loose stools persisting for over 2 weeks, or significant cramping or loose bloody stools, contact the office immediately. You may return to your regular activities. You may drive if you are no longer taking narcotic pain medication. You should perform no lifting greater than 20lbs for the next 3 weeks. Contact the office immediately if any of your incisions become increasingly tender, red or have drainage. Again, if you have any difficulties or concerns, contact our office immediately. If you note any additional difficulties, questions, or concerns, you should contact our office immediately @ [phone] and ask to be transferred to the General Surgery department. documented in this encounter [facility] 06-25-2022 History of Present illness Narrative FOLLOW UP VISIT - CHOLECYSTECTOMY NAME: Beatriz Snowden [facility] NO.: [id number] DATE OF SERVICE: 06/25/2022 : 1940 REFERRING PHYSICIAN: Gil Tobin IV, DO Beatriz is a patient I am following with Dr. Lockhart for a complaint of right upper quadrant pain. Dr. Lockhart performed a laparoscopic cholecystectomy with intraoperative cholangiogram on 06/14/22. Pathology showed cholelithiasis. The patient currently notes no complaints. her appetite has been good. she denies fever, chills or abdominal pain. she does note some minimal incisional discomfort. VITALS: Blood pressure (!) 112/40, pulse 68, temperature 36.6 C (97.8 F), height 160 cm (5' 3 ), weight 69.4 kg (153 lb), SpO2 97 %. On examination, the abdomen is benign. The incisions are healing well without signs of infection or inflammation. Assessment IMPRESSION: status post laparoscopic cholecystectomy with intraoperative cholangiogram PLAN: If the patient notes any problems, she should contact me immediately. she may return to her regular activities as tolerated, with the exception of no lifting greater than 20 pounds for the next 3 weeks. The patient is to contact me immediately is she experiences any of her preoperative symptoms. We discussed that occasional right up quadrant symptoms similar to the preoperative complaints can occur in the first couple of weeks post operatively. If this persists beyond the first 2-3 weeks, they should contact our office. Diagnoses: (K80.20) Gallstones (primary encounter diagnosis) Return to Clinic: The patient is instructed to follow-up with me as needed. Hina Weinstein PA-C documented in this encounter [facility] 06-14-2022 Note HNO ID: [id number] Author: MALENA Lange Service: Anesthesiology Author Type: Student Type: Anesthesia Procedure Notes Filed: 06/14/2022 12:17 PM Note Text: ANESTHESIOLOGY PROCEDURE NOTE Airway General Information Procedure Start Time/Medication Administration: 06/14/2022 12:06 PM Patient location during procedure: OR Timeout Performed Pre-procedure: timeout performed Consent Obtained: Yes Patient identity confirmed: arm band, care steam service inspector and patient Staffing SRNA: MALENA Lange Performed by: MALENA Indications and Patient Condition Indications for airway management: anesthesia Preoxygenated: yes anesthesia circuit Patient position: sniffing Method: asleep Cricoid Pressure: Yes Manual In-Line Stabilization: No Difficult Mask: No Final Airway Details Final airway type: endotracheal airway Final Endotracheal Airway: ETT Cuffed: yes Successful intubation technique: direct laryngoscopy Endotracheal tube insertion site: oral Blade: Chuckie Blade size: #4 ETT size (mm): 7.0 Measurement (cm): 21 Placement verified by: capnometry Cormack-Lehane Classification: grade IIa - partial view of glottis Number of attempts at approach: 1 Failed airway: no Unrecognized esophageal intubation: no Airway not difficult SIGNATURE: MALENA Lange PATIENT NAME: Beatriz Snowden DATE: June 14, 2022 TIME: 12:16 PM CSN: [id number] [facility] 06-07-2022 Miscellaneous Notes Called and spoke to patient, updated to hold Eliquis for 5 days, starting Friday, patient voiced understanding. Rosie Morales LPN Images from the original note were not included. Patrice Lockhart MD You; Rosie Morales LPN; [facility] General Surgery Pool 3 minutes ago (10:55 AM) SPoke with the MEDTRONICS TECHNICIAN. OK to hold anticoagulation for 5 days. Please call patient and have her stop her anticoagulation on Friday. Thanks Rich 11:00 am Left voicemail for Beatriz with Dr. Lockhart's message above. Asked her to please call the office to confirm that she received the message and make sure she does not have any additional questions. Kira Hutchinson RN Called [facility] at [phone] and left message for Joleen STOVER to call Dr. Lockhart regarding patient. Radha Valenzuela LPN Patient calling and states that she had seen [facility] and Eliquis was discussed at that office visit and she was told to hold medication for 2 days prior to surgery. Sumi Espinoza LPN Received a fax from [facility], office note from 05/31/office visit, did not see a note if patient can hold Eliquis for 5 days prior to surgery per Dr Lockhart? Please review and advise. Thank you. Rosie Morales LPN documented in this encounter [facility] 06-06-2022 Miscellaneous Notes EKG wave form received. On provider desk and copy sent to scanning. Camelia Haywood Call placed to [facility] to have copy of EKG with wave form faxed. Apparently EKG was done 05/31/2022. Await fax. Camelia Haywood documented in this encounter [facility] 05-29-2022 Miscellaneous Notes Faxed colonoscopy report. Kassidy Glover LPN Renetta with [facility] called to request most recent coloscopy report to be faxed to them. Kassidy Glover LPN Faxed Office Visit notes. Kassidy Glover LPN Emperatriz with Dr[facility] called to request office notes from 05/23/2022. Please fax to [phone]. Kassidy Glover LPN documented in this encounter [facility] 05-28-2022 Note HNO ID: [id number] Author: Patrice Lockhart MD Service: ? Author Type: Physician Type: Progress Notes Filed: 05/28/2022 7:24 PM Note Text: HISTORY AND PHYSICAL Beatriz Snowden 1940 REFERRING PHYSICIAN: CHIEF COMPLAINT: Abdominal Pain HPI: The patient is a 82 year old female with a complaint of abdominal pain. The patient has a recent history of abdominal pain complaints. She noted the pain seems to be in various areas of her body. She notes that she noted right lateral to right lower quadrant abdominal pain that then seem to radiate through to her back. She described this is pretty severe pain. She also notes sometimes that the pain is in her more midline abdomen. She is uncertain whether this is truly related to eating food. She states she is trying to follow a gallbladder diet with lacie and that this seems to have helped the pain improve. She noted the pain started approximately 2 weeks previously while she was in [place] the pain had gradual onset she had not had similar pain like this before. She is return from [place] and presented for evaluation. She denies jaundice, change in bowel habits such as diarrhea or constipation. She denies nausea or vomiting or urinary complaints. I performed screening colonoscopy last year. This demonstrated 2 small polyps which was otherwise unremarkable.. Patient went ultrasound last week which demonstrated cholelithiasis. The patient again noted some right upper quadrant pain going through to her back. PAST MEDICAL HISTORY Diagnosis Date Abdominal pain, unspecified site Arthritis Diverticulosis of colon (without mention of hemorrhage) HTN (hypertension) Internal hemorrhoids without mention of complication TIA (transient ischemic attack) 08/2017 Unspecified essential hypertension PAST SURGICAL HISTORY Procedure Laterality Date COLONOSCOPY FLX DX W/COLLJ SPEC WHEN PFRMD 02/25/2008 COLONOSCOPY FLX DX W/COLLJ SPEC WHEN PFRMD 10/03/2020 PAST SURGICAL HISTORY OF 03/17/2000 thumb surgery -both thumbs SIGMOIDOSCOPY FLX DX W/COLLJ SPEC BR/WA IF PFRMD 12/31/2011 Current Outpatient Medications Medication Sig apixaban (ELIQUIS) 5 mg tab(s) Take by mouth twice daily. triamcinolone acetonide topical 0.5 % ointment Apply to affected area as directed. Once weekly. Daily for up to 2 weeks prn flares (Patient taking differently: Apply to affected area as directed. Once weekly. Daily for up to 2 weeks prn flares) hydrALAZINE (APRESOLINE) 25 mg tablet Take 25 mg by mouth three times daily. zinc sulfate (ZINC-220 ORAL) Take by mouth. Every other week ergocalciferol, vitamin D2, (VITAMIN D2 ORAL) Take by mouth once daily. metoprolol tartrate, short acting, (LOPRESSOR) 25 mg tablet Take 25 mg by mouth twice daily. Irbesartan-Hydrochlorothiazide 300-12.5 mg per tablet Take 1 tablet by mouth once daily. MAGNESIUM CITRATE ORAL Take 150 mg by mouth. (Patient not taking: Reported on 05/28/2022) rosuvastatin (CRESTOR) 10 mg tablet 10 mg. (Patient not taking: Reported on 05/28/2022) No current facility-administered medications for this visit. ALLERGIES: Lipitor [Atorvastatin] and Shellfish PERSONAL HISTORY: Social History Tobacco Use Smoking status: Never Smokeless tobacco: Never Vaping Use Vaping Use: Never used Substance Use Topics Alcohol use: No Drug use: No FAMILY HISTORY: FAMILY HISTORY Problem Relation Age of Onset Stroke Mother Cancer Father lung Cancer Brother lung No Known Problems Maternal Grandmother No Known Problems Maternal Grandfather No Known Problems Paternal Grandmother No Known Problems Paternal Grandfather REVIEW OF SYMPTOMS: The review of systems data was entered by the nurse and reviewed by me There are no exam notes on file for this visit. PHYSICAL EXAMINATION: General: The patient is 82 year old female, well nourished, well hydrated in no acute distress. The patient is oriented to time, place, and person. VITALS: Blood pressure 142/50, pulse 63, temperature 36.1 ?C (96.9 ?F), height 160 cm (5' 3 ), weight 71.7 kg (158 lb), SpO2 96 %. HEENT: Normal cephalic, ataumatic, pupils are equally round, sclera are anicteric, mucous membranes are moist, oropharynx is clear. Neck has no masses, asymmetry or lymphadenopathy. Thyroid is unremarkable. Respiratory: Clear to auscultation and percussion. Normal respiratory excursion and pattern. Cardiac: Examination is regular rate and rhythm. Abdominal exam: Soft, nontender currently, no Blair's sign, with no palpable masses. No hepatosplenomegaly. No palpable hernias. Rectal exam: exam deferred Extremities: no clubbing, cyanosis or edema. No adenopathy. Other: LABORATORY VALUES: As Noted RADIOLOGIC STUDIES: As Noted Assessment IMPRESSION: Abdominal pain somewhat migratory, right upper quadrant pain, cholelithiasis PLAN: The patient is on Eliquis and follows up with Dr. Liu as her chief pilot. She will (more content not included)... [facility] 05-28-2022 History of Present illness Narrative HISTORY AND PHYSICAL Beatriz Snowden 1940 REFERRING PHYSICIAN: CHIEF COMPLAINT: Abdominal Pain HPI: The patient is a 82 year old female with a complaint of abdominal pain. The patient has a recent history of abdominal pain complaints. She noted the pain seems to be in various areas of her body. She notes that she noted right lateral to right lower quadrant abdominal pain that then seem to radiate through to her back. She described this is pretty severe pain. She also notes sometimes that the pain is in her more midline abdomen. She is uncertain whether this is truly related to eating food. She states she is trying to follow a gallbladder diet with alcie and that this seems to have helped the pain improve. She noted the pain started approximately 2 weeks previously while she was in [place] the pain had gradual onset she had not had similar pain like this before. She is return from [place] and presented for evaluation. She denies jaundice, change in bowel habits such as diarrhea or constipation. She denies nausea or vomiting or urinary complaints. I performed screening colonoscopy last year. This demonstrated 2 small polyps which was otherwise unremarkable.. Patient went ultrasound last week which demonstrated cholelithiasis. The patient again noted some right upper quadrant pain going through to her back. PAST MEDICAL HISTORY Diagnosis Date Abdominal pain, unspecified site Arthritis Diverticulosis of colon (without mention of hemorrhage) HTN (hypertension) Internal hemorrhoids without mention of complication TIA (transient ischemic attack) 08/2017 Unspecified essential hypertension PAST SURGICAL HISTORY Procedure Laterality Date COLONOSCOPY FLX DX W/COLLJ SPEC WHEN PFRMD 02/25/2008 COLONOSCOPY FLX DX W/COLLJ SPEC WHEN PFRMD 10/03/2020 PAST SURGICAL HISTORY OF 03/17/2000 thumb surgery -both thumbs SIGMOIDOSCOPY FLX DX W/COLLJ SPEC BR/WA IF PFRMD 12/31/2011 Current Outpatient Medications Medication Sig apixaban (ELIQUIS) 5 mg tab(s) Take by mouth twice daily. triamcinolone acetonide topical 0.5 % ointment Apply to affected area as directed. Once weekly. Daily for up to 2 weeks prn flares (Patient taking differently: Apply to affected area as directed. Once weekly. Daily for up to 2 weeks prn flares) hydrALAZINE (APRESOLINE) 25 mg tablet Take 25 mg by mouth three times daily. zinc sulfate (ZINC-220 ORAL) Take by mouth. Every other week ergocalciferol, vitamin D2, (VITAMIN D2 ORAL) Take by mouth once daily. metoprolol tartrate, short acting, (LOPRESSOR) 25 mg tablet Take 25 mg by mouth twice daily. Irbesartan-Hydrochlorothiazide 300-12.5 mg per tablet Take 1 tablet by mouth once daily. MAGNESIUM CITRATE ORAL Take 150 mg by mouth. (Patient not taking: Reported on 05/28/2022) rosuvastatin (CRESTOR) 10 mg tablet 10 mg. (Patient not taking: Reported on 05/28/2022) No current facility-administered medications for this visit. ALLERGIES: Lipitor [Atorvastatin] and Shellfish PERSONAL HISTORY: Social History Tobacco Use Smoking status: Never Smokeless tobacco: Never Vaping Use Vaping Use: Never used Substance Use Topics Alcohol use: No Drug use: No FAMILY HISTORY: FAMILY HISTORY Problem Relation Age of Onset Stroke Mother Cancer Father lung Cancer Brother lung No Known Problems Maternal Grandmother No Known Problems Maternal Grandfather No Known Problems Paternal Grandmother No Known Problems Paternal Grandfather REVIEW OF SYMPTOMS: The review of systems data was entered by the nurse and reviewed by me There are no exam notes on file for this visit. PHYSICAL EXAMINATION: General: The patient is 82 year old female, well nourished, well hydrated in no acute distress. The patient is oriented to time, place, and person. VITALS: Blood pressure 142/50, pulse 63, temperature 36.1 C (96.9 F), height 160 cm (5' 3 ), weight 71.7 kg (158 lb), SpO2 96 %. HEENT: Normal cephalic, ataumatic, pupils are equally round, sclera are anicteric, mucous membranes are moist, oropharynx is clear. Neck has no masses, asymmetry or lymphadenopathy. Thyroid is unremarkable. Respiratory: Clear to auscultation and percussion. Normal respiratory excursion and pattern. Cardiac: Examination is regular rate and rhythm. Abdominal exam: Soft, nontender currently, no Blair's sign, with no palpable masses. No hepatosplenomegaly. No palpable hernias. Rectal exam: exam deferred Extremities: no clubbing, cyanosis or edema. No adenopathy. Other: LABORATORY VALUES: As Noted RADIOLOGIC STUDIES: As Noted Assessment IMPRESSION: Abdominal pain somewhat migratory, right upper quadrant pain, cholelithiasis PLAN: The patient is on Eliquis and follows up with Dr. Liu as her chief pilot. She will be seeing him this Friday for her office visit. I will forward this note to Dr. Liu to ask his opinion for her cardiac risk factors and if we can hold her Eliquis for 5 days preoperatively. I plan to perform a laparoscopic cholecystectomy with intraoperative cholangiogram if the patient is judged to have an acceptable cardiac risk. The planned surgical procedure was discussed extensively with the patient. The risks, benefits and anticipated outcomes of the procedure, the risks and benefits of the alternatives to the procedure, and the roles and tasks of the personnel to be involved, were discussed with the patient. My staff has also explained the procedure in understandable terms and the patient was given the option to take printed material concerning the planned procedure. The patient had the opportunity to ask questions concerning the planned procedure. The patient freely consents to the planned procedure. Anticipated Surgical Procedure/ CPT Code: LAPAROSCOPIC CHOLECYSTECTOMY WITH INTRAOPERATIVE CHOLEANGIOGRAM - 22130-281 Anticipated Anesthetic: General Patient weight: Blood pressure 142/50, pulse 63, temperature 36.1 C (96.9 F), height 160 cm (5' 3 ), weight 71.7 kg (158 lb), SpO2 96 %. BMI: Body mass index is 27.99 kg/m . Planned antibiotic: Ancef 2gm IVPB natural resources extension educator to OR SCDs needed: Yes Glass Products Inspector Needed: Yes Pre Op Clearance: Cardiac Anticoagulation: Yes: Refer to Car Audio Installer to review. Diabetic: No Location: [place] OR Diagnoses: (R10.11) RUQ pain (primary encounter diagnosis) (K80.20) Calculus of gallbladder without cholecystitis without obstruction A letter was sent to Dr. Gil Tobin MD indicating the above finding for this patient. Return to Clinic: The patient is instructed to follow-up with me after the testing has been completed. Patrice Lockhart MD documented in this encounter [facility] 05-27-2022 Note HNO ID: [id number] Author: Elizabeth Mccoy RDMS Service: ? Author Type: Encyclopedia Research Worker Type: Progress Notes Filed: 05/27/2022 1:17 PM Note Text: Radiology Service Progress Note PATIENT NAME: Beatriz Snowden DATE OF SERVICE: May 27, 2022 TIME: 1:17 PM PATIENT IDENTITY VERIFICATION COMPLETED USING TWO (2) IDENTIFIERS: Name and Date of confirmed by patient verbally. FALL SCREENING: Has the patient had 2 falls in the last year or 1 fall with injury or currently using an Ambulatory Assistive Device (Walker, Cane, Wheelchair, Crutches, etc.)? No PATIENT GENDER DATA: Female. status: : No status: NO. PATIENT RELEVANT IMPLANT DATA REVIEWED: Not Applicable RADIOLOGY DEPARTMENT: Ultrasound PERIPHERAL IV DATA: Not applicable SIGNED BY: Elizabeth Mccoy RDMS RVT May 27, 2022 1:17 PM [facility] 05-27-2022 History of Present illness Narrative Radiology Service Progress Note PATIENT NAME: Beatriz Snowden DATE OF SERVICE: May 27, 2022 TIME: 1:17 PM PATIENT IDENTITY VERIFICATION COMPLETED USING TWO (2) IDENTIFIERS: Name and Date of confirmed by patient verbally. FALL SCREENING: Has the patient had 2 falls in the last year or 1 fall with injury or currently using an Ambulatory Assistive Device (Walker, Cane, Wheelchair, Crutches, etc.)? No PATIENT GENDER DATA: Female. status: : No status: NO. PATIENT RELEVANT IMPLANT DATA REVIEWED: Not Applicable RADIOLOGY DEPARTMENT: Ultrasound PERIPHERAL IV DATA: Not applicable SIGNED BY: Elizabeth Mccoy RDMS RVT May 27, 2022 1:17 PM documented in this encounter [facility] 05-24-2022 Note HNO ID: [id number] Author: Patrice Lockhart MD Service: ? Author Type: Physician Type: Progress Notes Filed: 05/24/2022 6:34 AM Note Text: HISTORY AND PHYSICAL Beatriz Snowden 1940 REFERRING PHYSICIAN: CHIEF COMPLAINT: Abdominal Pain HPI: The patient is a 82 year old female with a complaint of abdominal pain. The patient has a recent history of abdominal pain complaints. She noted the pain seems to be in various areas of her body. She notes that she noted right lateral to right lower quadrant abdominal pain that then seem to radiate through to her back. She described this is pretty severe pain. She also notes sometimes that the pain is in her more midline abdomen. She is uncertain whether this is truly related to eating food. She states she is trying to follow a gallbladder diet with lacie and that this seems to have helped the pain improve. She noted the pain started approximately 2 weeks previously while she was in [place] the pain had gradual onset she had not had similar pain like this before. She is return from [place] and presented for evaluation. She denies jaundice, change in bowel habits such as diarrhea or constipation. She denies nausea or vomiting or urinary complaints. I performed screening colonoscopy last year. This demonstrated 2 small polyps which was otherwise unremarkable.. PAST MEDICAL HISTORY Diagnosis Date Abdominal pain, unspecified site Arthritis Diverticulosis of colon (without mention of hemorrhage) HTN (hypertension) Internal hemorrhoids without mention of complication TIA (transient ischemic attack) 08/2017 Unspecified essential hypertension PAST SURGICAL HISTORY Procedure Laterality Date COLONOSCOPY FLX DX W/COLLJ SPEC WHEN PFRMD 02/25/2008 COLONOSCOPY FLX DX W/COLLJ SPEC WHEN PFRMD 10/03/2020 PAST SURGICAL HISTORY OF 03/17/2000 thumb surgery -both thumbs SIGMOIDOSCOPY FLX DX W/COLLJ SPEC BR/WA IF PFRMD 12/31/2011 Current Outpatient Medications Medication Sig apixaban (ELIQUIS) 5 mg tab(s) Take by mouth twice daily. triamcinolone acetonide topical 0.5 % ointment Apply to affected area as directed. Once weekly. Daily for up to 2 weeks prn flares (Patient taking differently: Apply to affected area as directed. Once weekly. Daily for up to 2 weeks prn flares) hydrALAZINE (APRESOLINE) 25 mg tablet Take 25 mg by mouth three times daily. ergocalciferol, vitamin D2, (VITAMIN D2 ORAL) Take by mouth once daily. metoprolol tartrate, short acting, (LOPRESSOR) 25 mg tablet Take 25 mg by mouth twice daily. Irbesartan-Hydrochlorothiazide 300-12.5 mg per tablet Take 1 tablet by mouth once daily. MAGNESIUM CITRATE ORAL Take 150 mg by mouth. (Patient not taking: Reported on 05/23/2022) zinc sulfate (ZINC-220 ORAL) Take by mouth. (Patient not taking: Reported on 05/23/2022) rosuvastatin (CRESTOR) 10 mg tablet 10 mg. (Patient not taking: Reported on 05/23/2022) No current facility-administered medications for this visit. ALLERGIES: Lipitor [Atorvastatin] and Shellfish PERSONAL HISTORY: Social History Tobacco Use Smoking status: Never Smokeless tobacco: Never Vaping Use Vaping Use: Never used Substance Use Topics Alcohol use: No Drug use: No FAMILY HISTORY: FAMILY HISTORY Problem Relation Age of Onset Stroke Mother Cancer Father lung Cancer Brother lung No Known Problems Maternal Grandmother No Known Problems Maternal Grandfather No Known Problems Paternal Grandmother No Known Problems Paternal Grandfather REVIEW OF SYMPTOMS: The review of systems data was entered by the nurse and reviewed by co Nursing Notes: Kassidy Glover LPN 05/23/2022 9:56 AM Signed REVIEW OF SYSTEMS: General: The patient denies fatigue, denies weight loss, denies weight gain, denies feeling hot, and denies feelings of cold. Eyes: The patient denies glaucoma, NOTES eye injury/surgery, does not wear glasses or contacts. Ear/Nose/Throat: The patient denies allergies, denies hayfever, denies ear infections, and denies bloody noses. Cardiovascular: The patient denies chest pain, denies heart disease, NOTES high blood pressure,denies cardiac stent, denies prior heart attack, denies irregular heart beat, NOTES high cholesterol, denies poor circulation, denies heart failure, other cardiac issues, denies claudication, denies cold feet, denies peripheral arterial stent. Respiratory: The patient denies tuberculosis, denies pneumonia, denies frequent cough, denies pulmonary embolism, denies shortness of breath, and denies coughing up blood. Gastrointestinal: The patient denies difficulty swallowing, denies acid reflux, denies ulcers, denies vomiting, denies jaundice/hepatitis, denies gallbladder problems, denies black or tarry stools, NOTES hemorrhoids, denies bleeding from rectum, denies diverticulitis, denies constipation, denies diarrhea, denies loss of stool control, and denies hernias. Kidney/Bladder: The patient d (more content not included)... [facility] 05-24-2022 History of Present illness Narrative HISTORY AND PHYSICAL Beatriz Snowden 1940 REFERRING PHYSICIAN: CHIEF COMPLAINT: Abdominal Pain HPI: The patient is a 82 year old female with a complaint of abdominal pain. The patient has a recent history of abdominal pain complaints. She noted the pain seems to be in various areas of her body. She notes that she noted right lateral to right lower quadrant abdominal pain that then seem to radiate through to her back. She described this is pretty severe pain. She also notes sometimes that the pain is in her more midline abdomen. She is uncertain whether this is truly related to eating food. She states she is trying to follow a gallbladder diet with lacie and that this seems to have helped the pain improve. She noted the pain started approximately 2 weeks previously while she was in [place] the pain had gradual onset she had not had similar pain like this before. She is return from [place] and presented for evaluation. She denies jaundice, change in bowel habits such as diarrhea or constipation. She denies nausea or vomiting or urinary complaints. I performed screening colonoscopy last year. This demonstrated 2 small polyps which was otherwise unremarkable.. PAST MEDICAL HISTORY Diagnosis Date Abdominal pain, unspecified site Arthritis Diverticulosis of colon (without mention of hemorrhage) HTN (hypertension) Internal hemorrhoids without mention of complication TIA (transient ischemic attack) 08/2017 Unspecified essential hypertension PAST SURGICAL HISTORY Procedure Laterality Date COLONOSCOPY FLX DX W/COLLJ SPEC WHEN PFRMD 02/25/2008 COLONOSCOPY FLX DX W/COLLJ SPEC WHEN PFRMD 10/03/2020 PAST SURGICAL HISTORY OF 03/17/2000 thumb surgery -both thumbs SIGMOIDOSCOPY FLX DX W/COLLJ SPEC BR/WA IF PFRMD 12/31/2011 Current Outpatient Medications Medication Sig apixaban (ELIQUIS) 5 mg tab(s) Take by mouth twice daily. triamcinolone acetonide topical 0.5 % ointment Apply to affected area as directed. Once weekly. Daily for up to 2 weeks prn flares (Patient taking differently: Apply to affected area as directed. Once weekly. Daily for up to 2 weeks prn flares) hydrALAZINE (APRESOLINE) 25 mg tablet Take 25 mg by mouth three times daily. ergocalciferol, vitamin D2, (VITAMIN D2 ORAL) Take by mouth once daily. metoprolol tartrate, short acting, (LOPRESSOR) 25 mg tablet Take 25 mg by mouth twice daily. Irbesartan-Hydrochlorothiazide 300-12.5 mg per tablet Take 1 tablet by mouth once daily. MAGNESIUM CITRATE ORAL Take 150 mg by mouth. (Patient not taking: Reported on 05/23/2022) zinc sulfate (ZINC-220 ORAL) Take by mouth. (Patient not taking: Reported on 05/23/2022) rosuvastatin (CRESTOR) 10 mg tablet 10 mg. (Patient not taking: Reported on 05/23/2022) No current facility-administered medications for this visit. ALLERGIES: Lipitor [Atorvastatin] and Shellfish PERSONAL HISTORY: Social History Tobacco Use Smoking status: Never Smokeless tobacco: Never Vaping Use Vaping Use: Never used Substance Use Topics Alcohol use: No Drug use: No FAMILY HISTORY: FAMILY HISTORY Problem Relation Age of Onset Stroke Mother Cancer Father lung Cancer Brother lung No Known Problems Maternal Grandmother No Known Problems Maternal Grandfather No Known Problems Paternal Grandmother No Known Problems Paternal Grandfather REVIEW OF SYMPTOMS: The review of systems data was entered by the nurse and reviewed by co Nursing Notes: Kassidy Glover LPN 05/23/2022 9:56 AM Signed REVIEW OF SYSTEMS: General: The patient denies fatigue, denies weight loss, denies weight gain, denies feeling hot, and denies feelings of cold. Eyes: The patient denies glaucoma, NOTES eye injury/surgery, does not wear glasses or contacts. Ear/Nose/Throat: The patient denies allergies, denies hayfever, denies ear infections, and denies bloody noses. Cardiovascular: The patient denies chest pain, denies heart disease, NOTES high blood pressure,denies cardiac stent, denies prior heart attack, denies irregular heart beat, NOTES high cholesterol, denies poor circulation, denies heart failure, other cardiac issues, denies claudication, denies cold feet, denies peripheral arterial stent. Respiratory: The patient denies tuberculosis, denies pneumonia, denies frequent cough, denies pulmonary embolism, denies shortness of breath, and denies coughing up blood. Gastrointestinal: The patient denies difficulty swallowing, denies acid reflux, denies ulcers, denies vomiting, denies jaundice/hepatitis, denies gallbladder problems, denies black or tarry stools, NOTES hemorrhoids, denies bleeding from rectum, denies diverticulitis, denies constipation, denies diarrhea, denies loss of stool control, and denies hernias. Kidney/Bladder: The patient denies kidney stones, denies urine infections, and denies bloody urine. Skin: The patient denies a history of skin cancer, denies bleeding/changing moles, and denies a history of skin rash. Neurologic: The patient denies a history of epilepsy/convulsions, denies headaches, denies head/spinal injuries, and NOTES stroke/TIA. Psychiatric: The patient denies psychiatric medications, denies depression, and denies voices, denies substance abuse. Endocrine: The patient denies thyroid disorders, denies diabetes, and denies hormonal problems. Hematologic: The patient denies a history of bruising, denies bleeding, and denies anemia, denies blood clots. Infections: The patient denies a history of measles and mumps, denies rheumatic fever, and denies sexually transmitted diseases. Musculoskeletal: The patient denies back pain/injury, denies back problems, denies sciatica, denies knee/foot trouble, NOTES arthritis, or denies gout. When was patient's last Mammogram screening? 2021 Last Colonoscopy: 09/2020 Kassidy Glover LPN PHYSICAL EXAMINATION: General: The patient is 82 year old female, well nourished, well hydrated in no acute distress. The patient is oriented to time, place, and person. VITALS: Blood pressure 134/64, pulse 64, temperature 36.7 C (98.1 F), temperature source Temporal, resp. rate 14, height 161.3 cm (5' 3.5 ), weight 71.7 kg (158 lb), SpO2 99 %. HEENT: Normal cephalic, ataumatic, pupils are equally round, sclera are anicteric, mucous membranes are moist, oropharynx is clear. Neck has no masses, asymmetry or lymphadenopathy. Thyroid is unremarkable. Respiratory: Clear to auscultation and percussion. Normal respiratory excursion and pattern. Cardiac: Examination is regular rate and rhythm. Abdominal exam: Soft, nontender currently, no Blair's sign, with no palpable masses. No hepatosplenomegaly. No palpable hernias. Rectal exam: exam deferred Extremities: no clubbing, cyanosis or edema. No adenopathy. Other: LABORATORY VALUES: As Noted RADIOLOGIC STUDIES: As Noted Assessment IMPRESSION: Abdominal pain somewhat migratory PLAN: I plan to obtain a right upper quadrant ultrasound and have the patient follow-up after that study. Diagnoses: (R10.11) RUQ pain (primary encounter diagnosis) A letter was sent to Dr. Gil Tobin MD indicating the above finding for this patient. Return to Clinic: The patient is instructed to follow-up with me after the testing has been completed. Patrice Lockhart MD documented in this encounter [facility] 05-23-2022 Nurse Note REVIEW OF SYSTEMS: General: The patient denies fatigue, denies weight loss, denies weight gain, denies feeling hot, and denies feelings of cold. Eyes: The patient denies glaucoma, NOTES eye injury/surgery, does not wear glasses or contacts. Ear/Nose/Throat: The patient denies allergies, denies hayfever, denies ear infections, and denies bloody noses. Cardiovascular: The patient denies chest pain, denies heart disease, NOTES high blood pressure,denies cardiac stent, denies prior heart attack, denies irregular heart beat, NOTES high cholesterol, denies poor circulation, denies heart failure, other cardiac issues, denies claudication, denies cold feet, denies peripheral arterial stent. Respiratory: The patient denies tuberculosis, denies pneumonia, denies frequent cough, denies pulmonary embolism, denies shortness of breath, and denies coughing up blood. Gastrointestinal: The patient denies difficulty swallowing, denies acid reflux, denies ulcers, denies vomiting, denies jaundice/hepatitis, denies gallbladder problems, denies black or tarry stools, NOTES hemorrhoids, denies bleeding from rectum, denies diverticulitis, denies constipation, denies diarrhea, denies loss of stool control, and denies hernias. Kidney/Bladder: The patient denies kidney stones, denies urine infections, and denies bloody urine. Skin: The patient denies a history of skin cancer, denies bleeding/changing moles, and denies a history of skin rash. Neurologic: The patient denies a history of epilepsy/convulsions, denies headaches, denies head/spinal injuries, and NOTES stroke/TIA. Psychiatric: The patient denies psychiatric medications, denies depression, and denies voices, denies substance abuse. Endocrine: The patient denies thyroid disorders, denies diabetes, and denies hormonal problems. Hematologic: The patient denies a history of bruising, denies bleeding, and denies anemia, denies blood clots. Infections: The patient denies a history of measles and mumps, denies rheumatic fever, and denies sexually transmitted diseases. Musculoskeletal: The patient denies back pain/injury, denies back problems, denies sciatica, denies knee/foot trouble, NOTES arthritis, or denies gout. When was patient's last Mammogram screening? 2021 Last Colonoscopy: 09/2020 Kassidy Glover LPN documented in this encounter [facility] 05-10-2022 Miscellaneous Notes Contacted patient scheduled her mammogram 07-05-22 Kassidy Sun 1st attempt: LVM for patient to schedule mammogram Order filed. Rosario Waller APRN.ELIZ Patient is requesting orders to be placed for a 3D mammogram, please review and advise. MARLEN Nunn May 08, 2022 2:54 PM documented in this encounter [facility] 11-15-2021 Miscellaneous Notes Beatriz called. She advised that she has not had a bowel movement for 2 days and is having pain across her lower abdomen. I asked if she has taken any over the counter stool softeners or laxatives or contacted her primary care provider. She advised no to both. Advised that she could try Miralax or Ducolax stool softeners or laxatives. If the pain is severe, she should be evaluated in the emergency room. She advised that she did not feel that she needed to be seen in the ER. Advised that she should also contact her PCP for an evaluation. She voiced understanding. Kira Hutchinson RN documented in this encounter [facility] 09-06-2021 Miscellaneous Notes September 06, 2021 PID: [id number] Beatriz Snowden [id number] [place] [address] Dear Ms. Snowden, We are pleased to inform you that the results of your recent breast imaging exam on 09/06/2021 are normal. Early detection of cancer is very important. We also understand recommendations regarding breast cancer screening are controversial. Please discuss with your primary care provider which strategy is best for you and whether a mammogram is right for you. Your imaging studies and report will be kept on file at [facility] as part of your permanent medical record and are available for your continuing care. Thank you for allowing us to help in meeting your health care needs. Sincerely, Dr. Hernandez Interpreting Radiologist [facility] (Normal over 40) documented in this encounter [facility] 09-06-2021 History of Present illness Narrative Radiology Service Progress Note PATIENT NAME: Beatriz Snowden DATE OF SERVICE: September 06, 2021 TIME: 9:38 AM PATIENT IDENTITY VERIFICATION COMPLETED USING TWO (2) IDENTIFIERS: Name and Date of confirmed by patient verbally. FALL SCREENING: Has the patient had 2 falls in the last year or 1 fall with injury or currently using an Ambulatory Assistive Device (Walker, Cane, Wheelchair, Crutches, etc.)? No PATIENT GENDER DATA: Female. status: : No status: NO. 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 Noticed it 2 weeks ago. Itching to that area x 2 days. Uses triamcinolone for LS but had not used it for approximately 2 months prior to soreness. Used cream once a day x 2 days when she noticed the sore but stopped due to no decrease in symptoms. Has been using feminine hygiene wipes for cleansing. Postmenopausal: Yes HRT use: No. Last Pap: 02/14/2010 normal HPV: 02/01/2005 negative History of abnormal pap: No Last mammogram: 2020 cyst right breast History of abnormal mammogram: Yes Sexually active: No OB History T0 L3 SAB0 IAB0 Ectopic0 Multiple0 Live Births0 Dyno Technician History LMP: Postmenopausal Age at Menarche: Age at First : Age at Menopause: Dyno Technician History Comments: Sexual Activity: Not Currently; Male Contraception: No contraception data on record PAST MEDICAL HISTORY Diagnosis Date Abdominal pain, unspecified site Arthritis Diverticulosis of colon (without mention of hemorrhage) HTN (hypertension) Internal hemorrhoids without mention of complication TIA (transient ischemic attack) 08/2017 Unspecified essential hypertension PAST SURGICAL HISTORY Procedure Laterality Date COLONOSCOP W/ OR W/O [facility] SPEC 02/25/2008 COLONOSCOP W/ OR W/O [facility] SPEC 10/03/2020 PAST SURGICAL HISTORY OF 03/17/2000 thumb surgery -both thumbs SIGMOIDOSCOPY FLEX DIAG 12/31/2011 FAMILY HISTORY Problem Relation Age of Onset Stroke Mother Cancer Father lung Cancer Brother lung SOCIAL HISTORY Social History Tobacco Use Smoking status: Never Smoker Smokeless tobacco: Never Used Vaping Use Vaping Use: Never used Substance Use Topics Alcohol use: No Drug use: No REVIEW OF SYSTEMS Abdomen: No abdominal pain, nausea, vomiting, diarrhea, or constipation. No bloating, early satiety, indigestion, or increased flatulence. Bladder: No dysuria, gross hematuria, urinary frequency, urinary urgency, or incontinence Breast: No breast lumps, nipple d/c, overlying skin changes, redness or skin retraction Allergies and current medication updated:Yes EXAM: BP 158/62 Ht 5' 3.386 (1.61m) Wt 163 lb 3.2 oz (74.0kg) BMI 28.56 kg/(m^2). GENERAL: pleasant, female in no apparent distress HEENT: Normocephalic, atraumatic, mucus membranes moist and no lesions NECK: Supple, full range of motion, no adenopathy and thyroid normal DERMATOLOGY: Normal, without lesions, non-icteric and non-hirsute BREAST: soft, non-tender, symmetric, no dominant mass, normal nipple-areolar complex, no lymphadenopathy and no nipple discharge CHEST: Normal inspiratory effort ABDOMEN: soft, non-tender and no masses PELVIC: external exam normal, inner labial majora erythematous and atrophic. Declined internal exam BIMANUAL: declined NEURO: alert and oriented x3,exam grossly non-focal ASSESSMENT/PLAN: 1) Health maintenance: Pap/HPV screening no longer needed Mammogram ordered Mammogram up to date Nutrition, exercise and routine health maintenance exams reviewed. Calcium/Vitamin D supplementation information provided. Colon cancer screening: up to date with screening BMD: declined 2. 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 - TRIAMCINOLONE ACETONIDE 0.5 % TOPICAL OINTMENT once a week maintenance, once a day for flares 3) Follow up one year or sooner as needed Sisi Gross APRN.ELIZ documented in this encounter [facility] documented as of this encounter (statuses as of 08/29/2021) [facility] History of Past illness Narrative* Problem Noted Date Resolved Date Milial cyst 08/14/2013 08/30/2015 Other seborrheic keratosis 12/25/201208/29 Dermatofibroma of left lower leg 12/25/2012 08/30/2015 Murillo angioma 11/10/2011 08/30/2015 Actinic skin damage 11/10/2011 08/30/2015 Xerosis cutis 11/10/2011 08/30/2015 Melanocytic nevus of trunk 11/10/201008/29 Melanocytic nevus of upper extremity 11/10/2010 08/30/2015 Solar Lentigines 11/10/2010 08/30/2015 Pilar cyst 11/10/2010 08/30/2015 Skin tag 01/04/2010 08/30/2015 Scar condition and fibrosis of skin 03/06/2009 08/30/2015 Angular cheilitis 02/07/2009 08/30/2015 ACTINIC DAMAGE///CHR SOLAR SKIN DAMAGE NOS 12/0411/10/2011 SOLAR LENTIGINES///DYSCHROMIA OTHER 12/04/2006 11/10/2011 Other seborrheic keratosis 12/04/200611/09 NEVUS///BENIGN CIRO SKIN TRUNK 12/04/2006 MURILLO ANGIOMA///NEVUS, NON-NEOPLASTIC 7 11/10/2011 documented as of this encounter (statuses as of 09/07/2021) [facility] History of Past illness Narrative* Problem Noted Date Resolved Date Milial cyst 08/14/2013 08/30/2015 Other seborrheic keratosis 12/25/201208/29 Dermatofibroma of left lower leg 12/25/2012 08/30/2015 Murillo angioma 11/10/2011 08/30/2015 Actinic skin damage 11/10/2011 08/30/2015 Xerosis cutis 11/10/2011 08/30/2015 Melanocytic nevus of trunk 11/10/201008/29 Melanocytic nevus of upper extremity 11/10/2010 08/30/2015 Solar Lentigines 11/10/2010 08/30/2015 Pilar cyst 11/10/2010 08/30/2015 Skin tag 01/04/2010 08/30/2015 Scar condition and fibrosis of skin 03/06/2009 08/30/2015 Angular cheilitis 02/07/2009 08/30/2015 ACTINIC DAMAGE///CHR SOLAR SKIN DAMAGE NOS 12/0411/10/2011 SOLAR LENTIGINES///DYSCHROMIA OTHER 12/04/2006 11/10/2011 Other seborrheic keratosis 12/04/200611/09 NEVUS///BENIGN CIRO SKIN TRUNK 12/04/2006 MURILLO ANGIOMA///NEVUS, NON-NEOPLASTIC 7 11/10/2011 documented as of this encounter (statuses as of 09/08/2021) [facility] History of Past illness Narrative* Problem Noted Date Resolved Date Milial cyst 08/14/2013 08/30/2015 Other seborrheic keratosis 12/25/201208/29 Dermatofibroma of left lower leg 12/25/2012 08/30/2015 Murillo angioma 11/10/2011 08/30/2015 Actinic skin damage 11/10/2011 08/30/2015 Xerosis cutis 11/10/2011 08/30/2015 Melanocytic nevus of trunk 11/10/201008/29 Melanocytic nevus of upper extremity 11/10/2010 08/30/2015 Solar Lentigines 11/10/2010 08/30/2015 Pilar cyst 11/10/2010 08/30/2015 Skin tag 01/04/2010 08/30/2015 Scar condition and fibrosis of skin 03/06/2009 08/30/2015 Angular cheilitis 02/07/2009 08/30/2015 ACTINIC DAMAGE///CHR SOLAR SKIN DAMAGE NOS 12/0411/10/2011 SOLAR LENTIGINES///DYSCHROMIA OTHER 12/04/2006 11/10/2011 Other seborrheic keratosis 12/04/200611/09 NEVUS///BENIGN CIRO SKIN TRUNK 12/04/2006 MURILLO ANGIOMA///NEVUS, NON-NEOPLASTIC 7 11/10/2011 documented as of this encounter (statuses as of 11/15/2021) [facility]2014 History of Past illness Narrative* Problem Noted Date Resolved Date Milial cyst 08/14/2013 08/30/2015 Other seborrheic keratosis 12/25/201208/29 Dermatofibroma of left lower leg 12/25/2012 08/30/2015 Murillo angioma 11/10/2011 08/30/2015 Actinic skin damage 11/10/2011 08/30/2015 Xerosis cutis 11/10/2011 08/30/2015 Melanocytic nevus of trunk 11/10/201008/29 Melanocytic nevus of upper extremity 11/10/2010 08/30/2015 Solar Lentigines 11/10/2010 08/30/2015 Pilar cyst 11/10/2010 08/30/2015 Skin tag 01/04/2010 08/30/2015 Scar condition and fibrosis of skin 03/06/2009 08/30/2015 Angular cheilitis 02/07/2009 08/30/2015 ACTINIC DAMAGE///CHR SOLAR SKIN DAMAGE NOS 12/0411/10/2011 SOLAR LENTIGINES///DYSCHROMIA OTHER 12/04/2006 11/10/2011 Other seborrheic keratosis 12/04/200611/09 NEVUS///BENIGN CIRO SKIN TRUNK 12/04/2006 MURILLO ANGIOMA///NEVUS, NON-NEOPLASTIC 7 11/10/2011 documented as of this encounter (statuses as of 05/10/2022) [facility] History of Past illness Narrative* Problem Noted Date Resolved Date Milial cyst 08/14/2013 08/30/2015 Other seborrheic keratosis 12/25/201208/29 Dermatofibroma of left lower leg 12/25/2012 08/30/2015 Murillo angioma 11/10/2011 08/30/2015 Actinic skin damage 11/10/2011 08/30/2015 Xerosis cutis 11/10/2011 08/30/2015 Melanocytic nevus of trunk 11/10/201008/29 Melanocytic nevus of upper extremity 11/10/2010 08/30/2015 Solar Lentigines 11/10/2010 08/30/2015 Pilar cyst 11/10/2010 08/30/2015 Skin tag 01/04/2010 08/30/2015 Scar condition and fibrosis of skin 03/06/2009 08/30/2015 Angular cheilitis 02/07/2009 08/30/2015 ACTINIC DAMAGE///CHR SOLAR SKIN DAMAGE NOS 12/0411/10/2011 SOLAR LENTIGINES///DYSCHROMIA OTHER 12/04/2006 11/10/2011 Other seborrheic keratosis 12/04/200611/09 NEVUS///BENIGN CIRO SKIN TRUNK 12/04/2006 MURILLO ANGIOMA///NEVUS, NON-NEOPLASTIC 7 11/10/2011 documented as of this encounter (statuses as of 05/24/2022) [facility] History of Past illness Narrative* Problem Noted Date Resolved Date Milial cyst 08/14/2013 08/30/2015 Other seborrheic keratosis 12/25/201208/29 Dermatofibroma of left lower leg 12/25/2012 08/30/2015 Murillo angioma 11/10/2011 08/30/2015 Actinic skin damage 11/10/2011 08/30/2015 Xerosis cutis 11/10/2011 08/30/2015 Melanocytic nevus of trunk 11/10/201008/29 Melanocytic nevus of upper extremity 11/10/2010 08/30/2015 Solar Lentigines 11/10/2010 08/30/2015 Pilar cyst 11/10/2010 08/30/2015 Skin tag 01/04/2010 08/30/2015 Scar condition and fibrosis of skin 03/06/2009 08/30/2015 Angular cheilitis 02/07/2009 08/30/2015 ACTINIC DAMAGE///CHR SOLAR SKIN DAMAGE NOS 12/0411/10/2011 SOLAR LENTIGINES///DYSCHROMIA OTHER 12/04/2006 11/10/2011 Other seborrheic keratosis 12/04/200611/09 NEVUS///BENIGN CIRO SKIN TRUNK 12/04/2006 MURILLO ANGIOMA///NEVUS, NON-NEOPLASTIC 200 7 11/10/2011 documented as of this encounter (statuses as of 05/29/2022) [facility] History of Past illness Narrative* Problem Noted Date Resolved Date Milial cyst 08/14/2013 08/30/2015 Other seborrheic keratosis 12/25/201208/29 Dermatofibroma of left lower leg 12/25/2012 08/30/2015 Murillo angioma 11/10/2011 08/30/2015 Actinic skin damage 11/10/2011 08/30/2015 Xerosis cutis 11/10/2011 08/30/2015 Melanocytic nevus of trunk 11/10/201008/29 Melanocytic nevus of upper extremity 11/10/2010 08/30/2015 Solar Lentigines 11/10/2010 08/30/2015 Pilar cyst 11/10/2010 08/30/2015 Skin tag 01/04/2010 08/30/2015 Scar condition and fibrosis of skin 03/06/2009 08/30/2015 Angular cheilitis 02/07/2009 08/30/2015 ACTINIC DAMAGE///CHR SOLAR SKIN DAMAGE NOS 12/0411/10/2011 SOLAR LENTIGINES///DYSCHROMIA OTHER 12/04/2006 11/10/2011 Other seborrheic keratosis 12/04/200611/09 NEVUS///BENIGN CIRO SKIN TRUNK 12/04/2006 MURILLO ANGIOMA///NEVUS, NON-NEOPLASTIC 200 7 11/10/2011 documented as of this encounter (statuses as of 05/29/2022) [facility] History of Past illness Narrative* Problem Noted Date Resolved Date Milial cyst 08/14/2013 08/30/2015 Other seborrheic keratosis 12/25/201208/29 Dermatofibroma of left lower leg 12/25/2012 08/30/2015 Murillo angioma 11/10/2011 08/30/2015 Actinic skin damage 11/10/2011 08/30/2015 Xerosis cutis 11/10/2011 08/30/2015 Melanocytic nevus of trunk 11/10/201008/29 Melanocytic nevus of upper extremity 11/10/2010 08/30/2015 Solar Lentigines 11/10/2010 08/30/2015 Pilar cyst 11/10/2010 08/30/2015 Skin tag 01/04/2010 08/30/2015 Scar condition and fibrosis of skin 03/06/2009 08/30/2015 Angular cheilitis 02/07/2009 08/30/2015 ACTINIC DAMAGE///CHR SOLAR SKIN DAMAGE NOS 12/0411/10/2011 SOLAR LENTIGINES///DYSCHROMIA OTHER 12/04/2006 11/10/2011 Other seborrheic keratosis 12/04/200611/09 NEVUS///BENIGN CIRO SKIN TRUNK 12/04/2006 MURILLO ANGIOMA///NEVUS, NON-NEOPLASTIC 7 11/10/2011 documented as of this encounter (statuses as of 06/07/2022) [facility] History of Past illness Narrative* Problem Noted Date Resolved Date Milial cyst 08/14/2013 08/30/2015 Other seborrheic keratosis 12/25/201208/29 Dermatofibroma of left lower leg 12/25/2012 08/30/2015 Murillo angioma 11/10/2011 08/30/2015 Actinic skin damage 11/10/2011 08/30/2015 Xerosis cutis 11/10/2011 08/30/2015 Melanocytic nevus of trunk 11/10/201008/29 Melanocytic nevus of upper extremity 11/10/2010 08/30/2015 Solar Lentigines 11/10/2010 08/30/2015 Pilar cyst 11/10/2010 08/30/2015 Skin tag 01/04/2010 08/30/2015 Scar condition and fibrosis of skin 03/06/2009 08/30/2015 Angular cheilitis 02/07/2009 08/30/2015 ACTINIC DAMAGE///CHR SOLAR SKIN DAMAGE NOS 12/0411/10/2011 SOLAR LENTIGINES///DYSCHROMIA OTHER 12/04/2006 11/10/2011 Other seborrheic keratosis 12/04/200611/09 NEVUS///BENIGN CIRO SKIN TRUNK 12/04/2006 MURILLO ANGIOMA///NEVUS, NON-NEOPLASTIC 200 7 11/10/2011 documented as of this encounter (statuses as of 06/13/2022) [facility] History of Past illness Narrative* Problem Noted Date Resolved Date Milial cyst 08/14/2013 08/30/2015 Other seborrheic keratosis 12/25/201208/29 Dermatofibroma of left lower leg 12/25/2012 08/30/2015 Murillo angioma 11/10/2011 08/30/2015 Actinic skin damage 11/10/2011 08/30/2015 Xerosis cutis 11/10/2011 08/30/2015 Melanocytic nevus of trunk 11/10/201008/29 Melanocytic nevus of upper extremity 11/10/2010 08/30/2015 Solar Lentigines 11/10/2010 08/30/2015 Pilar cyst 11/10/2010 08/30/2015 Skin tag 01/04/2010 08/30/2015 Scar condition and fibrosis of skin 03/06/2009 08/30/2015 Angular cheilitis 02/07/2009 08/30/2015 ACTINIC DAMAGE///CHR SOLAR SKIN DAMAGE NOS 12/0411/10/2011 SOLAR LENTIGINES///DYSCHROMIA OTHER 12/04/2006 11/10/2011 Other seborrheic keratosis 12/04/200611/09 NEVUS///BENIGN CIRO SKIN TRUNK 12/04/2006 MURILLO ANGIOMA///NEVUS, NON-NEOPLASTIC 200 7 11/10/2011 documented as of this encounter (statuses as of 06/25/2022) [facility] History of Past illness Narrative* Problem Noted Date Resolved Date Milial cyst 08/14/2013 08/30/2015 Other seborrheic keratosis 12/25/201208/29 Dermatofibroma of left lower leg 12/25/2012 08/30/2015 Murillo angioma 11/10/2011 08/30/2015 Actinic skin damage 11/10/2011 08/30/2015 Xerosis cutis 11/10/2011 08/30/2015 Melanocytic nevus of trunk 11/10/201008/29 Melanocytic nevus of upper extremity 11/10/2010 08/30/2015 Solar Lentigines 11/10/2010 08/30/2015 Pilar cyst 11/10/2010 08/30/2015 Skin tag 01/04/2010 08/30/2015 Scar condition and fibrosis of skin 03/06/2009 08/30/2015 Angular cheilitis 02/07/2009 08/30/2015 ACTINIC DAMAGE///CHR SOLAR SKIN DAMAGE NOS 12/0411/10/2011 SOLAR LENTIGINES///DYSCHROMIA OTHER 12/04/2006 11/10/2011 Other seborrheic keratosis 12/04/200611/09 NEVUS///BENIGN CIRO SKIN TRUNK 12/04/2006 MURILLO ANGIOMA///NEVUS, NON-NEOPLASTIC 7 11/10/2011 documented as of this encounter (statuses as of 09/20/2022) [facility] History of Past illness Narrative* Problem Noted Date Diagnosed Date Resolved Date Milial cyst 08/14/2013 08/30/2015 Other seborrheic keratosis 12/25/2012 0 08/30/2015 Dermatofibroma of left lower leg 12/25/2012 08/30/2015 Murillo angioma 11/10/2011 08/30/2015 Actinic skin damage 11/10/2011 08/30/19 16 Xerosis cutis 11/10/2011 08/30/2015 Melanocytic nevus of trunk 11/10/2010 0 08/30/2015 Melanocytic nevus of upper extremity 11/10/2010 08/30/2015 Solar Lentigines 11/10/2010 08/30/2015 Pilar cyst 11/10/2010 08/30/2015 Skin tag 01/04/2010 08/30/2015 Scar condition and fibrosis of skin 03/06/2009 08/30/2015 Angular cheilitis 02/07/2009 08/30/2015 ACTINIC DAMAGE///CHR SOLAR SKIN DAMAGE NOS 12/04/2006 11/10/2011 SOLAR LENTIGINES///DYSCHROMIA OTHER 12/04/2006 11/10/2011 Other seborrheic keratosis 12/04/2006 0 11/10/2011 NEVUS///BENIGN CIRO SKIN TRUNK 12/04/2006 11/10/2011 MURILLO ANGIOMA///NEVUS, NON-NEOPLASTIC 12/04/2006 11/10/2011 documented as of this encounter (statuses as of 01/19/2023) [facility] History of Past illness Narrative* Problem Noted Date Diagnosed Date Resolved Date Milial cyst 08/14/2013 08/30/2015 Other seborrheic keratosis 12/25/2012 0 08/30/2015 Dermatofibroma of left lower leg 12/25/2012 08/30/2015 Murillo angioma 11/10/2011 08/30/2015 Actinic skin damage 11/10/2011 08/30/19 16 Xerosis cutis 11/10/2011 08/30/2015 Melanocytic nevus of trunk 11/10/2010 0 08/30/2015 Melanocytic nevus of upper extremity 11/10/2010 08/30/2015 Solar Lentigines 11/10/2010 08/30/2015 Pilar cyst 11/10/2010 08/30/2015 Skin tag 01/04/2010 08/30/2015 Scar condition and fibrosis of skin 03/06/2009 08/30/2015 Angular cheilitis 02/07/2009 08/30/2015 ACTINIC DAMAGE///CHR SOLAR SKIN DAMAGE NOS 12/04/2006 11/10/2011 SOLAR LENTIGINES///DYSCHROMIA OTHER 12/04/2006 11/10/2011 Other seborrheic keratosis 12/04/2006 0 11/10/2011 NEVUS///BENIGN CIRO SKIN TRUNK 12/04/2006 11/10/2011 MURILLO ANGIOMA///NEVUS, NON-NEOPLASTIC 12/04/2006 11/10/2011 documented as of this encounter (statuses as of 01/19/2023) [facility] History of Past illness Narrative* Problem Noted Date Diagnosed Date Resolved Date Milial cyst 08/14/2013 08/30/2015 Other seborrheic keratosis 12/25/2012 0 08/30/2015 Dermatofibroma of left lower leg 12/25/2012 08/30/2015 Murillo angioma 11/10/2011 08/30/2015 Actinic skin damage 11/10/2011 08/30/19 16 Xerosis cutis 11/10/2011 08/30/2015 Melanocytic nevus of trunk 11/10/2010 0 08/30/2015 Melanocytic nevus of upper extremity 11/10/2010 08/30/2015 Solar Lentigines 11/10/2010 08/30/2015 Pilar cyst 11/10/2010 08/30/2015 Skin tag 01/04/2010 08/30/2015 Scar condition and fibrosis of skin 03/06/2009 08/30/2015 Angular cheilitis 02/07/2009 08/30/2015 ACTINIC DAMAGE///CHR SOLAR SKIN DAMAGE NOS 12/04/2006 11/10/2011 SOLAR LENTIGINES///DYSCHROMIA OTHER 12/04/2006 11/10/2011 Other seborrheic keratosis 12/04/2006 0 11/10/2011 NEVUS///BENIGN CIRO SKIN TRUNK 12/04/2006 11/10/2011 MURILLO ANGIOMA///NEVUS, NON-NEOPLASTIC 12/04/2006 11/10/2011 documented as of this encounter (statuses as of 02/16/2023) [facility] Appointment Date:06/18/2021 09:30:00 AM Scheduled Provider:GIL TOBIN DO Location:[facility] Appointment Type: OV Future Scheduled Tests Laboratory* Urinalysis 07/31/20 * Lipid Profile 10/10/20 * Lipid Profile 07/31/20 * Lipid Profile 03/12/21 * Microalbumin Level Urine 07/31/20 * Complete Metabolic Panel 07/31/20 * Complete Metabolic Panel 03/12/21 [facility] Evaluation + Plan note Future Appointments Appointment Date:06/27/2021 10:00:00 AM Scheduled Provider:GIL TOBIN DO Location:[facility] Appointment Type: OV Future Scheduled Tests Laboratory* Urinalysis 07/31/20 * Lipid Profile 07/31/20 * Lipid Profile 10/10/20 * Microalbumin Level Urine 07/31/20 * Complete Metabolic Panel 07/31/20 [facility] Evaluation + Plan note Future Appointments Appointment Date:12/27/2021 09:30:00 AM Scheduled Provider:GIL TOBIN DO Location:[facility] Appointment Type: OV Follow Up Appointment Date:03/13/2022 09:00:00 AM Scheduled Provider:GIL TOBIN DO Location:[facility] Appointment Type:PC Wellness Medicare Diagnostic Tests Pending * Urine Culture 08/20/21 Future Scheduled Tests Laboratory* Lipid Profile 12/27/21 * Lipid Profile 10/10/20 [facility] Evaluation + Plan note Future Appointments Appointment Date:03/13/2022 09:00:00 AM Scheduled Provider:GIL TOBIN DO Location:[facility] Appointment Type:PC Wellness Medicare Future Scheduled Tests Laboratory* Lipid Profile 12/27/21 * Microalbumin Level Urine 01/16/22 [facility] Evaluation + Plan note Future Appointments Appointment Date:05/21/2023 09:00:00 AM Scheduled Provider:GIL TOBIN DO Location:[facility] Appointment Type:PC Wellness Medicare Future Scheduled Tests Laboratory* Thyroid Stimulating Hormone 09/04/22 * Free T4 09/04/22 * Urine Culture 09/13/22 * A1C Hemoglobin 09/04/22 * Complete Blood Count 09/04/22 * Lipid Profile 12/27/21 * Lipid Profile 09/04/22 * Albumin/Creatinine Ratio, Random Urine 09/04/22 * Microalbumin Level Urine 01/16/22 * Vitamin D Level 09/04/22 * Complete Metabolic Panel 09/04/22 [facility] Evaluation + Plan note Future Appointments Appointment Date:03/19/2023 09:30:00 AM Scheduled Provider:GIL TOBIN DO Location:[facility] Appointment Type:PC Wellness Medicare Future Scheduled Tests Laboratory* Thyroid Stimulating Hormone 09/04/22 * Free T4 09/04/22 * Urine Culture 09/13/22 * A1C Hemoglobin 09/04/22 * Complete Blood Count 09/04/22 * Lipid Profile 09/04/22 * Albumin/Creatinine Ratio, Random Urine 09/04/22 * Vitamin D Level 09/04/22 * Complete Metabolic Panel 09/04/22 [facility] Evaluation note* Diagnosis Encounter for gynecologic examination for high-risk patient covered by Medicare- Primary Routine gynecological examination Lichen sclerosus et atrophicus Circumscribed scleroderma Encounter for screening mammogram for breast cancer documented in this encounter [facility] note* Diagnosis Encounter for screening mammogram for breast cancer [facility] Diagnosis Encounter for screening mammogram for malignant neoplasm of breast- Primary Other screening mammogram documented in this encounter [facility] note* Diagnosis RUQ pain- Primary Abdominal pain, right upper quadrant [facility]* Diagnosis RUQ pain- Primary Abdominal pain, right upper quadrant Calculus of gallbladder without cholecystitis without obstruction Calculus of gallbladder without mention of cholecystitis or obstruction documented in this encounter [facility] note* Diagnosis Gallstones- Primary Calculus of gallbladder without mention of cholecystitis or obstruction documented in this encounter [facility] note* Diagnosis RUQ pain Abdominal pain, right upper quadrant [facility]* Diagnosis Encounter for screening mammogram for malignant neoplasm of breast Other screening mammogram [facility]* Diagnosis Pelvic pain in female Unspecified symptom associated with female genital organs documented in this encounter [facility] note* Diagnosis Subacute cough- Primary Cough Flank pain Abdominal pain, unspecified site Secondary hyperaldosteronism (HCC) Other secondary aldosteronism documented in this encounter [facility] course Narrative No data available for this section [facility] Hospital Discharge instructions No data available for this section [facility] Progress note No data available for this section [facility] Reason for referral (narrative)* Diagnostic Procedure Only (Routine) - Pending Review Specialty Diagnoses / Procedures Referred By Yessica t Referred To Contact [facility] Diagnoses Encounter for screening mammogram for breast cancer Menopausal state Procedures JESSICA SCREENING W LESLI SCREENING DIGITAL BREAST TOMOSYNTHESIS BI SCREENING MAMMOGRAPHY BI 2-VIEW BREAST INC Sisi Adler APRN.MEDICAL ASSISTING PROGRAM DIRECTOR [address] [place] [address] [facility] [address] [place] [address] Referral ID Status Reason Start Date Expiration Date Visits Requested Visits Authorized [id number] Pending Review Auto-Generat ed Referral 08/29/2021 09/28/2022 1 1 [facility] for referral (narrative)* Diagnostic Procedure Only (Routine) - Closed Specialty Diagnoses / Procedures Referred By Contac t Referred To Contact [facility] Diagnoses Encounter for screening mammogram for breast cancer Menopausal state Procedures JESSICA SCREENING W LESLI SCREENING DIGITAL BREAST TOMOSYNTHESIS BI SCREENING MAMMOGRAPHY BI 2-VIEW BREAST INC Sisi Adler APRN.MEDICAL ASSISTING PROGRAM DIRECTOR [address] [place] [place] [address] [facility] [address] [place] [address] Referral ID Status Reason Start Date Expiration Date V isits Requested Visits Authorized [id number] Closed Auto-Generate d Referral 08/29/2021 09/28/2022 1 1 [facility] for referral (narrative)* Diagnostic Procedure Only (Routine) - Authorized Specialty Diagnoses / Procedures Referred By Contac t Referred To Contact [facility] Diagnoses Encounter for screening mammogram for malignant neoplasm of breast Procedures JESSICA SCREENING W LESLI SCREENING DIGITAL BREAST TOMOSYNTHESIS BI SCREENING MAMMOGRAPHY BI 2-VIEW BREAST INC Rosario Rivera APRN.MEDICAL ASSISTING PROGRAM DIRECTOR [address] [place] [address] [facility] [address] [place] [address] Referral ID Status Reason Start Date Expiration Date Visits Requested Visits Authorized [id number] Authorized Auto-Generat ed Referral 05/09/2022 06/08/2023 1 1 [facility] for referral (narrative)* Diagnostic Procedure Only (Routine) - Authorized Specialty Diagnoses / Procedures Referred By Yessica cee Referred To Contact [facility] Diagnoses RUQ pain Procedures US ABD RT UPPER QUADRANT US ABDOMINAL REAL TIME W/IMAGE LIMITED Patrice Lockhart MD [address] [place] [address] [facility] Referral ID Status Reason Start Date Expiration Date Visits Requested Visits Authorized [id number] Authorized Auto-Generat ed Referral 05/23/2022 06/22/2023 1 1 [facility] for referral (narrative)* Diagnostic Procedure Only (Routine) - Closed Specialty Diagnoses / Procedures Referred By Yessica cee Referred To Contact [facility] Diagnoses RUQ pain Procedures US ABD RT UPPER QUADRANT US ABDOMINAL REAL TIME W/IMAGE LIMITED Patrice Lockhart MD [address] [place] [address] [place] [address] Referral ID Status Reason Start Date Expiration Date V isits Requested Visits Authorized [id number] Closed Auto-Generate d Referral 05/23/2022 06/22/2023 1 1 [facility] for referral (narrative)* Diagnostic Procedure Only (Routine) - Closed Specialty Diagnoses / Procedures Referred By Yessica cee Referred To Contact [facility] Diagnoses Encounter for screening mammogram for malignant neoplasm of breast Procedures JESSICA SCREENING W LESLI SCREENING DIGITAL BREAST TOMOSYNTHESIS BI SCREENING MAMMOGRAPHY BI 2-VIEW BREAST INC Rosario Rivera APRN.CNP [address] [place] [address] [facility] [address] [place] [address] Referral ID Status Reason Start Date Expiration Date V isits Requested Visits Authorized [id number] Closed Auto-Generate d Referral 05/09/2022 06/08/2023 1 1 [facility] for referral (narrative)* Diagnostic Procedure Only (Routine) - Closed Specialty Diagnoses / Procedures Referred By Yessica cee Referred To Contact [facility] Diagnoses Pelvic pain in female Procedures US FEMALE PELVIS TRANSVAG US TRANSVAGINAL Beth Taveras MD [address] [place] [address] [place] [address] Referral ID Status Reason Start Date Expiration Date V isits Requested Visits Authorized [id number] Closed Auto-Generate d Referral 10/23/2022 11/22/2023 1 1 [facility] for visit Narrative* Diagnostic Procedure Only (Routine) - Closed Specialty Diagnoses / Procedures Referred By Yessica cee Referred To Contact [facility] Diagnoses Encounter for screening mammogram for breast cancer Menopausal state Procedures JESSICA SCREENING W LESLI SCREENING DIGITAL BREAST TOMOSYNTHESIS BI SCREENING MAMMOGRAPHY BI 2-VIEW BREAST INC CAD Sisi Gross, SWITCH ENGINEER.MEDICAL ASSISTING PROGRAM DIRECTOR [address] [place] [address] [facility] [address] [place] [address] Referral ID Status Reason Start Date Expiration Date V isits Requested Visits Authorized [id number] Closed Auto-Generate d Referral 08/29/2021 09/28/2022 1 1 [facility] for visit Narrative* Diagnostic Procedure Only (Routine) - Closed Specialty Diagnoses / Procedures Referred By Yessica cee Referred To Contact [facility] Diagnoses Encounter for screening mammogram for malignant neoplasm of breast Procedures JESSICA SCREENING W LESLI SCREENING DIGITAL BREAST TOMOSYNTHESIS BI SCREENING MAMMOGRAPHY BI 2-VIEW BREAST INC CAD Rosario Waller, SWITCH ENGINEER.MEDICAL ASSISTING PROGRAM DIRECTOR [address] [place] [address] [facility] [address] [place] [address] Referral ID Status Reason Start Date Expiration Date V isits Requested Visits Authorized [id number] Closed Auto-Generate d Referral 05/09/2022 06/08/2023 1 1 [facility] for visit Narrative* Diagnostic Procedure Only (Routine) - Closed Specialty Diagnoses / Procedures Referred By Yessica cee Referred To Contact [facility] Diagnoses Pelvic pain in female Procedures US FEMALE PELVIS TRANSVAG US TRANSVAGINAL Beth Taveras MD [address] 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 Advance Directive(s) 10/03/2020 10:02 AM Documents on File Type Date Recorded 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 Advance Directive(s) 10/03/2020 10:02 AM Additional Source Comments Care Team (unrecognized sect ion and content) Customer Care Manager Relationship Specialty Start Date End Date Gil Tobin IV, MD [address] [place] [address] PCP - General Family Practice 08/29/20 Customer Care Manager Relationship Specialty Start Date End Date Gil Tobin IV, MD [address] [place] [address] PCP - General Family Practice 08/29/20 Customer Care Manager Relationship Specialty Start Date End Date Gil Tobin IV, MD [address] [place] [address] PCP - General Family Practice 08/29/20 Customer Care Manager Relationship Specialty Start Date End Date Gil Tobin IV, MD [address] [place] [address] PCP - General Family Medicine 08/29/20 Customer Care Manager Relationship Specialty Start Date End Date Gil Tobin IV, MD [address] [place] [address] PCP - General Family Medicine 08/29/20 Customer Care Manager Relationship Specialty Start Date End Date Gil Tobin IV, MD [address] [place] [address] PCP - General Family Medicine 08/29/20 Customer Care Manager Relationship Specialty Start Date End Date Gil Tobin IV, DO [address] [place] [address] PCP - General Family Medicine 08/29/20 Customer Care Manager Relationship Specialty Start Date End Date Gil Tobin IV, DO [address] [place] [address] PCP - General Family Medicine 08/29/20 Customer Care Manager Relationship Specialty Start Date End Date Gil Tobin IV, DO [address] [place] [address] PCP - General Family Medicine 08/29/20 Customer Care Manager Relationship Specialty Start Date End Date Gil Tobin IV, DO [address] [place] [address] PCP - General Family Medicine 08/29/20 Customer Care Manager Relationship Specialty Start Date End Date Gil Tobin IV, DO [address] [place] [address] PCP - General Family Medicine 08/29/20 Customer Care Manager Relationship Specialty Start Date End Date Gil Tobin IV, DO [address] [place] [address] PCP - General Family Medicine 08/29/20 Customer Care Manager Relationship Specialty Start Date End Date Gil Tobin IV, DO [address] [place] [address] PCP - General Family Medicine 08/29/20 Customer Care Manager Relationship Specialty Start Date End Date Gil Tobin [address] [place] [address] PCP - General Family Medicine 08/29/20 INFORMATION SOURCE (unrecogn ized section and content) DATE CREATED AUTHOR AUTHOR'S ORGANIZ ATION 06/19/2022 [facility] DATE CREATED AUTHOR AUTHOR'S ORGANIZ ATION 02/26/2023 [facility] ([place]) DATE CREATED AUTHOR AUTHOR'S ORGANIZ ATION 03/05/2023 [facility] Source Comments (unrecognize d section and content) In the event this informatio n is protected by the Federal Confidentiality of Alcohol and Drug Abuse Patient Records regulations: The Federal rules restrict any use of the information to criminally investigate or prosecute any alcohol or drug abuse patient.[facility] the event this information is protected by the Federal Confidentiality of Alcohol and Drug Abuse Patient Records regulations: The Federal rules restrict any use of the information to criminally investigate or prosecute any alcohol or drug abuse patient.[facility] Hospital[facility] the event this information is protected by the Federal Confidentiality of Alcohol and Drug Abuse Patient Records regulations: The Federal rules restrict any use of the information to criminally investigate or prosecute any alcohol or drug abuse patient.[facility] the event this information is protected by the Federal Confidentiality of Alcohol and Drug Abuse Patient Records regulations: The Federal rules restrict any use of the information to criminally investigate or prosecute any alcohol or drug abuse patient.[facility] HospitalIn the event this information is protected by the Federal Confidentiality of Alcohol and Drug Abuse Patient Records regulations: The Federal rules restrict any use of the information to criminally investigate or prosecute any alcohol or drug abuse patient.[facility] HospitalIn the event this information is protected by the Federal Confidentiality of Alcohol and Drug Abuse Patient Records regulations: The Federal rules restrict any use of the information to criminally investigate or prosecute any alcohol or drug abuse patient.[facility] HospitalIn the event this information is protected by the Federal Confidentiality of Alcohol and Drug Abuse Patient Records regulations: The Federal rules restrict any use of the information to criminally investigate or prosecute any alcohol or drug abuse patient.[facility] HospitalIn the event this information is protected by the Federal Confidentiality of Alcohol and Drug Abuse Patient Records regulations: The Federal rules restrict any use of the information to criminally investigate or prosecute any alcohol or drug abuse patient.[facility]In the event this information is protected by the Federal Confidentiality of Alcohol and Drug Abuse Patient Records regulations: The Federal rules restrict any use of the information to criminally investigate or prosecute any alcohol or drug abuse patient.[facility]In the event this information is protected by the Federal Confidentiality of Alcohol and Drug Abuse Patient Records regulations: The Federal rules restrict any use of the information to criminally investigate or prosecute any alcohol or drug abuse patient.[facility] HospitalIn the event this information is protected by the Federal Confidentiality of Alcohol and Drug Abuse Patient Records regulations: The Federal rules restrict any use of the information to criminally investigate or prosecute any alcohol or drug abuse patient.[facility] HospitalIn the event this information is protected by the Federal Confidentiality of Alcohol and Drug Abuse Patient Records regulations: The Federal rules restrict any use of the information to criminally investigate or prosecute any alcohol or drug abuse patient.[facility] HospitalIn the event this information is protected by the Federal Confidentiality of Alcohol and Drug Abuse Patient Records regulations: The Federal rules restrict any use of the information to criminally investigate or prosecute any alcohol or drug abuse patient.[facility] HospitalIn the event this information is protected by the Federal Confidentiality of Alcohol and Drug Abuse Patient Records regulations: The Federal rules restrict any use of the information to criminally investigate or prosecute any alcohol or drug abuse patient.[facility] HospitalIn the event this information is protected by the Federal Confidentiality of Alcohol and Drug Abuse Patient Records regulations: The Federal rules restrict any use of the information to criminally investigate or prosecute any alcohol or drug abuse patient.[facility] HospitalIn the event this information is protected by the Federal Confidentiality of Alcohol and Drug Abuse Patient Records regulations: The Federal rules restrict any use of the information to criminally investigate or prosecute any alcohol or drug abuse patient.[facility] Reason for Visit (unrecogniz ed section and content) Reason Comments Orders Reason Comments Abdominal Pain Reason Comments Follow Up RUQ pain,, ultrasoun d 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 Reason Comments Medication Follow-up Eliquis Reason Comments Request Outside Medical Records PACC Reason Comments Follow Up Lap william Reason Comments Radiology US Specialty Diagnoses / Procedures Referred By Yessica cee Referred To Contact US IMAGING Diagnoses RUQ pain Procedures US ABD RT UPPER QUADRANT US ABDOMINAL REAL TIME W/IMAGE LIMITED Patrice Lockhart MD [address] [facility] [place] [address] [place] [address] Referral ID Status Reason Start Date Expiration Date V isits Requested Visits Authorized [id number] Closed Auto-Generate d Referral 05/23/2022 06/22/2023 1 1 Reason Comments Abdominal Pain Care Team (unrecognized sect ion and content) Care Team Personnel Name: GIL TOBIN DO Position: P4 Physician - Primary Care Member Role: Primary Care Physician Address: Address: [address] [place] [id number] [place] Care Team Related Persons Name: NAILA SNOWDEN Address: Home [address], [place] [id number] FOR RECORDS PERTAINING TO PATIENTS WHO ARE OR HAVE BEEN ENROLLED IN A CHEMICAL DEPENDENCY/SUBSTANCEABUSE PROGRAM, SOME INFORMATION MAY BE OMITTED. This clinical summary was aggregated from multiple sources. Caution should be exercised in using it in the provision of clinical care. This summary normalizes information from multiple sources, and as a consequence, information in this document may materially change the coding, format and clinical context of patient data. In addition, data may be omitted in some cases. CLINICAL DECISIONS SHOULD BE BASED ON THE PRIMARY CLINICAL RECORDS. [facility] [employer] [facility]. provides no warranty or guarantee of the accuracy or completeness of information in this document.
== END | disposition home or self-care (01) ==
LOC: CVS 09:00
PROVIDERS: PCP Student in an Organized Health Care Education/Training Program; Referring Provider Nurse Practitioner Gerontology; Visit Provider Nurse Practitioner Gerontology
DX: I48.0 Paroxysmal atrial fibrillation (principal); I10 Essential (primary) hypertension
CPT/HCPCS: 93306; A4216

== ENCOUNTER 2024-03-10 19:03 | Emergency (ER) | payer MEDICARE, SELFPAY ==
[2024-03-10] VITALS (9 sets, daily range): BP systolic 134–178; BP diastolic 49–93; PULSE 53–69; RESP 13–19; TEMP 36.1–36.4; O2SAT 98–100; BMI 28.0
--- NOTE | 2024-03-10 19:30 | RAD_ITS ---
STUDY: X-RAY CHEST REASON FOR EXAM: Female, 84 years old. chest pain TECHNIQUE: Single frontal view of the chest. COMPARISON: Chest x-ray February 03, 2023 FINDINGS: The lungs are clear and expanded. There is no demonstrated pleural abnormality. Normal size heart. Normal mediastinum and becka. Normal visualized pulmonary arteries. Normal visualized aortic arch and descending thoracic aorta. Normal visualized thoracic spine. Normal visualized ribs, clavicles, and shoulders. There is no demonstrated abnormality of the visualized soft tissue structures of the upper abdomen. RAD/Chest 1 View (Portable) IMPRESSION: Normal x-ray examination of the chest. Electronically Signed: Terry Griffith MD at 20:43 EST ,
--- NOTE | 2024-03-10 19:37 | EDS_ITS ---
HPI History of Present Illness Chief Complaint: Chest Pain Informant: patient Onset/Context/Timing Onset: Today Activity at onset: sudden Timing: Intermittent Quality: Positive for Dull and - (Patient will really call in a pain was a sensation in her chest.) Location: Substernal Current Severity: Gone Maximum Severity: Mild Worsened By: Nothing Relieved By: Nothing Associated Symptoms: Negative for Nausea, Vomiting, Diaphoresis, Dyspnea, Cough, Fever, Lightheadedness, Acid Reflux or Palpitations Narrative Narrative: 84-year-old female history of A-fib, hypertension and prior stroke. She is on Eliquis. Says he was at home around 6:00 tonight had a low heart rate in the 40s. Did not pass out. She said she just had a sensation in her chest. She will not call pain. No nausea. No diaphoresis. Says she is feeling better currently. No prior history of an event like this before. Prior Similar Symptoms: No Recent Illness/Hospitalization: No CVD Risk Factors: Positive for Hypertension; Negative for Diabetes or Smoking PE Risk Factors: Negative for Recent Travel/Surgery, Recent Immobilization, Prior DVT or PE, Cancer or OCP + Smoking + >/=35 TAD Risk Factors: Negative for Marfan's Syndrome [facility] Medical History Paroxysmal atrial fibrillation Torn meniscus Essential hypertension Sinus bradycardia Nonrheumatic pulmonary valve insufficiency Nonrheumatic tricuspid valve regurgitation Nonrheumatic aortic (valve) insufficiency Irregular heartbeat Hyperlipidemia Screening for intestinal cancer History of poliomyelitis Left hemiparesis Numbness Stroke Home Medications ?Medication ?Instructions ?Recorded ?Last Taken ?Type hydrochlorothiazide 25 mg tablet 25 mg PO DAILY Diuretic/ BP 11/14/20 12/03/20 History cholecalciferol (vitamin D3) 125 125 mcg PO DAILY 04/25/21 Unknown History mcg (5,000 unit) tablet magnesium 200 mg tablet 200 mg PO DAILY 05/31/22 Unknown History acetylcysteine 1 cap PO DAILY 01/12/23 Unknown History zinc gluconate 50 mg tablet 50 mg PO DAILY 02/04/23 Unknown History diltiazem HCl 120 mg 120 mg PO DAILY 04/03/23 Unknown History capsule,extended release 24 hr bergamot extract 650 mg tablet mg PO 08/12/23 Unknown History irbesartan 300 mg tablet 300 mg PO BID BP 08/12/23 Unknown History ivermectin 3 mg tablet PO 08/12/23 Unknown History apixaban 5 mg tablet (Eliquis) 5 mg PO BID please change quantity 02/09/24 Unknown Rx to 30 days. #60 tabs carvedilol 12.5 mg tablet (Coreg) 12.5 mg PO BID #180 tabs 02/09/24 Unknown Rx Allergy/AdvReac Type Severity Reaction Status Date / Time shellfish derived Allergy Swelling Verified 03/10/24 19:04 atorvastatin AdvReac Severe Diarrhea Verified 03/10/24 19:04 amlodipine AdvReac fatigue Verified 03/10/24 19:04 Family History Mother CVA (cerebral vascular accident) Hypertension Daughter Thyroid disorder Surgical History History of cholecystectomy H/O colonoscopy S/P trigger finger release Social History household members: spouse housing: house current occupational status: retired Smoking Status: Never smoker alcohol intake: never substance use type: does not use ROS ROS ED ROS Narrative No recent illness. Denies recent exertional chest pain or exertional dyspnea. Constitutional Constitutional ED: Denies chills or fever(s) Eyes Eyes: Reports none ENT ENT ED: Denies ear pain or rhinorrhea Cardiovascular Cardiovascular: Denies as per HPI, chest pain, palpitations or racing heartbeat Respiratory/Chest Respiratory/Chest: Denies cough or dyspnea Gastrointestinal Gastrointestinal: Denies abdominal pain, constipation or diarrhea Genitourinary Genitourinary ED: Denies dysuria or hematuria Musculoskeletal Musculoskeletal: Denies arthralgias or back pain Integumentary Denies abscess Neurologic Neurologic: Denies headache(s) Psychiatric Psychiatric: Denies anxiety Endocrine Endocrinology: Denies cold intolerance Hematologic/Lymphatic Hematologic/Lymphatic: Denies easy bleeding Allergic/Immunologic Allergic/Immunologic ED: Denies mouth swelling EXAM Physical Exam Narrative Exam Narrative: Well-appearing 84-year-old female. Vital signs are stable. Currently her heart rate is 57. Pulse ox 100% on room air no signs hypoxia. She is in no distress. 2 family members are present at bedside. H EENT exam unremarkable. Normal speech. No facial droop. Neck nontender no JVD. Lungs clear to auscultation bilaterally. Heart regular rhythm rate about 60 no murmur. Abdomen is soft nontender. No peritoneal signs. Chest wall nontender. Moving all 4 extremities. Nontender no edema. Normal strength. Normal range of motion. Neurologically she is awake alert no focal motor deficits. Back nontender. Const Vital Signs: 03/10/24 19:04 03/10/24 19:14 03/10/24 19:28 Temperature 97 F L Temperature Source Temporal Pulse Rate 57 L Respiratory Rate 18 Respiratory Effort Normal Non-Labored Blood Pressure 178/66 H Blood Pressure Mean 103 Pulse Ox 100 Oxygen Delivery Method Room Air Room Air 03/10/24 19:45 03/10/24 20:00 03/10/24 20:15 Temperature Temperature Source Pulse Rate 54 L 64 69 Respiratory Rate 15 14 19 H Respiratory Effort Blood Pressure 146/66 H 168/69 H 160/49 H Blood Pressure Mean 88 97 81 Pulse Ox 98 98 99 Oxygen Delivery Method 03/10/24 20:31 03/10/24 20:45 03/10/24 21:00 Temperature Temperature Source Pulse Rate 59 L 57 L Respiratory Rate 18 13 Respiratory Effort Blood Pressure 134/74 H 144/62 H 153/59 H Blood Pressure Mean 91 88 87 Pulse Ox 99 98 Oxygen Delivery Method 03/10/24 21:15 Temperature Temperature Source Pulse Rate 53 L Respiratory Rate 13 Respiratory Effort Blood Pressure 142/93 H Blood Pressure Mean 108 Pulse Ox 99 Oxygen Delivery Method Positive well nourished; Negative for cachectic, contractures or unkempt General Appearance ED: Negative for unkempt, cachectic, contractures or pallor Nutritional Appearance: Negative for cachectic HEENT Reports moist mucous membranes normocephalic and atraumatic; Negative for trauma or tenderness Eyes EOMs intact bilaterally General Eye ED: Negative for pale conjunctiva or scleral icterus Neck no lymphadenopathy, supple and no JVD Chest Wall inspection of chest normal and palpation of chest normal Chest: Negative for tenderness Resp normal respiratory effort and clear to auscultation bilaterally Effort and Inspection: Negative for respiratory distress Auscultation: Negative for rales, rhonchi, wheezes or diminished lung sounds Cardio regular rate, regular rhythm, S1 normal heart sound, S2 normal heart sound and no murmurs Rate: Negative for bradycardia or tachycardic Peripheral Pulses: pulses 2+ throughout GI normal to inspection, nondistended, normoactive bowel sounds, soft to palpation, non-tender, non-distended and no masses Back/Spine no CVA tenderness and no thoracic nor lumbar tenderness General Back: Negative for CVA tenderness Cervical Spine: Negative for cervical spine tenderness Extremity normal to inspection General Extremety ED: Negative for edema, pulses abnormal or tenderness General Extremity: Negative for edema or pulses abnormal Neuro oriented x3 and CN's II-XII intact bilaterally Sensorium / Orientation: awake, alert, oriented to person, oriented to place and oriented to time; Negative for confused Motor Exam: strength 5/5 throughout Psych mental status grossly normal Appearance: Negative for unkempt Attitude: No agitated Mood & Affect: Negative for depressed, anxious or tearful Skin no rashes or lesions noted and no wounds General Skin Exam: Negative for jaundice or pallor Rashes: No rashes noted Trauma: Negative for abrasion or laceration MDM MDM MDM Narrative Medical decision making narrative: Patient with bradycardia at home. She will undergo cardiac workup. Currently her exam is normal heart rate 60. She has no reproducible pain. Repeat exam at 9:25 PM patient doing well. Says she feels much better. Exam benign. Heart rates in the 50s. Blood pressure 142/93. Clinically she looks well. She and her discussed all of her test results are comfortable with her being discharged home. 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 History & Record Review Discussion w/independent historian: Patient and Family Additional record(s) reviewed:: Prior inpatient record, Prior outpatient record, Prior ED visit and Prior labs Lab Data Attestation: I reviewed the patient's lab results. Lab results narrative: CBC normal. White count 7. H&H 12 and 38. Platelets 358. Electrolytes unremarkable gap 8. BUN of 30 creatinine 0.8. Glucose 111. Troponin 6. Chest x-ray normal. EKG normal. Labs: Laboratory Results - last 24 hr 03/10/24 19:20 WBC 7.1 RBC 4.22 Hgb 12.7 Hct 38.0 MCV 90.0 MCH 30.1 MCHC 33.4 RDW Std Deviation 41.7 RDW Coeff of Michelle 12.7 Plt Count 358 MPV 9.5 Immature Gran % (Auto) 0.400 Neut % (Auto) 58.0 Lymph % (Auto) 29.4 [place] % (Auto) 9.3 Eos % (Auto) 2.1 Baso % (Auto) 0.8 Absolute Neuts (auto) 4.1 Absolute Lymphs (auto) 2.08 Nucleated RBC % 0 Sodium 136 Potassium 3.9 Chloride 107 Carbon Dioxide 22.0 Anion Gap 8 BUN 30 H Creatinine 0.80 Estim Creat Clear Calc 52.61 Est GFR (MDRD) Af Amer 88 Est GFR (MDRD) Non-Af 73 BUN/Creatinine Ratio 37.4 H Glucose 111 H Calcium 9.3 Troponin I High Sens 6 Radiography Chest X-Ray - ED: 1 View, Read by ED Physician, Read by Radiologist, Normal, Heart, Lungs, Mediastinum, Bony Structures, No Acute Disease and Chronic Changes Diagnostic Testing: Clinical Impression(s) from Imaging Studies Chest X-Ray 03/10/24 19:30 IMPRESSION: Normal x-ray examination of the chest. Electronically Signed: Terry Griffith MD at 20:43 EST Reading Location ID and State: [facility] / [place] Tel , Service support , Chest x-ray, single view, portable, interpreted both by myself and radiologist shows no acute abnormality. Normal cardiac silhouette. Normal mediastinum. Normal lung major. Rhythm Strip Rhythm Strip: Sinus Rhythm Rate: 60 Ectopy: None EKG Initial EKG: Attestation: I personally reviewed and interpreted this EKG as follows: Interpretation: Sinus Rhythm and No Acute Injury Pattern Comments: Normal sinus rhythm rate of 60 no acute signs of DC or ischemia. Discharge Plan Triage Chief Complaint: Chest Pain ED Provider: John Campbell Dx/Rx/DC Orders Clinical Impression: Near syncope Instructions: ED Near-Fainting, Uncertain Cause Prescriptions: No Action hydrochlorothiazide 25 mg tablet 25 mg PO DAILY irbesartan 300 mg tablet 300 mg PO BID magnesium 200 mg tablet 200 mg PO DAILY cholecalciferol (vitamin D3) 125 mcg (5,000 unit) tablet 125 mcg PO DAILY zinc gluconate 50 mg tablet 50 mg PO DAILY bergamot extract 650 mg tablet PO ivermectin 3 mg tablet PO acetylcysteine [NAC] 1 cap PO DAILY diltiazem HCl 120 mg capsule,extended release 24hr 120 mg PO DAILY carvedilol [Coreg] 12.5 mg tablet 12.5 mg PO BID Qty: 180 3RF Rx Instructions: must administer with a meal/food Eliquis 5 mg tablet 5 mg PO BID Qty: 60 11RF Primary Care Provider: Osiel Gamble Referrals: Osiel Gamble DO [Primary Care Provider] - Osiel Cheema MD [Med Staff - Active Staff] - As soon as possible Activity Restrictions/Additional Instructions: Follow-up with your primary care physician or your commissioner public works. Your tests today, lab work, EKG and chest x-ray all look good. No signs of a heart attack. Uncertain what the cause was. It may be that your heart rate dipped to low. You can follow-up and discuss that with your commissioner public works. Print Language: Nepalese Disposition Disposition: Home, Self Care
[2024-03-10 19:50] LABS: Absolute Lymphocyte Count 2.08 X10^3/uL (0.83-4.51); Absolute Neutrophil Count 4.1 X10^3/uL (2.0-7.7); Basophil# 0.06 X10^3/uL; Basophil% 0.8 % (0-1); Eosinophil# 0.15 X10^3/uL; Eosinophils% 2.1 % (0-5); Hemoglobin 12.7 g/dL (12.0-15.0); Lymphocyte # 2.08 X10^3/ul (0.83-4.51); Lymphocyte % 29.4 % (19-41); Mean Corp Hgb Conc 33.4 g/dL (32-36); Mean Corpuscular Hgb 30.1 pg (27.0-32.0); Mean Platelet Vol. 9.5 fl (6.2-12.0); Monocyte# 0.66 X10^3/uL; Monocyte% 9.3 % (0-10); NRBC Flagged by Analyzer 0 % (0-5); Neutrophil # 4.09 X10^3/uL (2.7-7.7); Platelet Count 358 K/mm3 (150-450); RBC Distribution Width CV 12.7 % (11.6-14.6); RBC Distribution Width SD 41.7 fl (35.1-43.9); Red Blood Count 4.22 M/mm3 (4.2-5.4); White Blood Count 7.1 K/mm3 (4.4-11.0)
[2024-03-10 20:03] LABS: Anion Gap 8 (5-15); BUN 30 mg/dL (7-18); BUN/Creat Ratio 37.4 RATIO (10-20); Calcium,Total 9.3 mg/dL (8.5-10.1); Chloride 107 mmol/L (98-107); EST Glomerular Filtration Rate 73 mL/min (>60); Est Glom Filt Rate - Afr Amer 88 mL/min (>60); Estimated Creatinine Clearance 52.61 ml/min; Glucose 111 mg/dL (74-106); Potassium 3.9 mmol/L (3.5-5.1); Sodium Level 136 mmol/L (136-145); Troponin-I HS (w/2H Reflex) 6 pg/mL (3.0-54.0)
[2024-03-10 21:40] LABS: Reflex Troponin-HS? (from REC) Y
== END 2024-03-10 22:02 | disposition home or self-care (01) ==
PROVIDERS: Emergency Provider Emergency Medicine; PCP Student in an Organized Health Care Education/Training Program; Visit Provider Emergency Medicine
DX: R55 Syncope and collapse (principal); I48.0 Paroxysmal atrial fibrillation; I10 Essential (primary) hypertension; E78.5 Hyperlipidemia, unspecified; Z79.01 Long term (current) use of 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; Z79.899 Other long term (current) drug therapy; Z86.73 Personal history of transient ischemic attack (TIA), and cerebral infarction without residual deficits
CPT/HCPCS: 71045; 80048; 84484; 85025; 93005; 99284; A4216

== ENCOUNTER → 2024-07-07 | Outpatient (CLI) | payer OTHER, SELFPAY ==
[2024-07-07 11:37] LABS: Erythrocyte Sedimentation Rate 7 mm/hr (0-30)
[2024-07-07 11:39] LABS: Absolute Neutrophil Count 3.9 X10^3/uL (2.0-7.7); Basophil# 0.05 X10^3/uL; Basophil% 0.8 % (0-1); Eosinophil# 0.12 X10^3/uL; Eosinophils% 1.9 % (0-5); Hematocrit 36.3 % (37-47); Hemoglobin 12.1 g/dL (12.0-15.0); Mean Corp Hgb Conc 33.3 g/dL (32-36); Mean Corpuscular Hgb 31.3 pg (27.0-32.0); Mean Corpuscular Volume 93.8 fL (81-99); Monocyte# 0.51 X10^3/uL; Monocyte% 7.9 % (0-10); NRBC Flagged by Analyzer 0 % (0-5); Neutrophil # 3.92 X10^3/uL (2.7-7.7); Neutrophil % 61.1 % (47-70); Platelet Count 357 K/mm3 (150-450); RBC Distribution Width CV 12.2 % (11.6-14.6); Red Blood Count 3.87 M/mm3 (4.2-5.4); White Blood Count 6.4 K/mm3 (4.4-11.0)
[2024-07-07 12:56] LABS: ALB/GLOB Ratio 1.4 RATIO (0.9-2.4); AST(SGOT) 20 U/L (<=31); Alanine Aminotransfer ALT/SGPT 14 U/L (<=34); Albumin, Serum 4.3 g/dL (3.4-4.8); Alkaline Phosphatase 70 U/L (35-104); Anion Gap 12 (5-15); BUN 26 mg/dL (4-19); BUN/Creat Ratio 30.7 RATIO (10-20); Calcium,Total 10.2 mg/dL (7.6-11.0); Carbon Dioxide 22.5 mmol/L (21.0-32.0); Chloride 103 mmol/L (98-108); Creatinine, Serum 0.86 mg/dL (0.70-1.20); EST Glomerular Filtration Rate 67 (>60); Glucose 96 mg/dL (70-99); Potassium 4.2 mmol/L (3.3-5.1); Protein, Total 7.4 g/dL (5.9-8.4); Sodium Level 137 mmol/L (133-145); Total Bilirubin 0.47 mg/dL (0.00-1.30)
[2024-07-07 13:45] LABS: Amylase 81 U/L (28-100); CRP < 3.00 mg/L (0.0-3.0); Lipase 51 U/L (13-75)
== END | disposition home or self-care (01) ==
LOC: LAB 10:37
PROVIDERS: PCP Student in an Organized Health Care Education/Training Program; Referring Provider Internal Medicine Gastroenterology; Visit Provider Internal Medicine Gastroenterology
DX: R19.7 Diarrhea, unspecified (principal)
CPT/HCPCS: 36415; 80053; 82150; 82784; 82785; 82941; 83516; 83690; 84165; 84443; 85025; 85652; 86003; 86005; 86036; 86037; 86140; 86255; 86334; 86671

== ENCOUNTER → 2024-07-09 | Outpatient (CLI) | payer MEDICARE, SELFPAY ==
[2024-07-12 13:08] LABS: Pancreatic Elastase, Fecal > 800 (>200)
[2024-07-13 16:08] LABS: Calprotectin, Stool 13 ug/g (0-120); Fats, Neutral Normal (.); Fats, Total Normal (.)
== END | disposition home or self-care (01) ==
LOC: LABSPEC 10:49
PROVIDERS: PCP Student in an Organized Health Care Education/Training Program; Referring Provider Internal Medicine Gastroenterology; Visit Provider Internal Medicine Gastroenterology
DX: R19.7 Diarrhea, unspecified (principal); K58.9 Irritable bowel syndrome, unspecified
CPT/HCPCS: 82653; 82705; 83630; 83993; 87177; 87209; 87329; 87493

== ENCOUNTER → 2024-07-27 | Outpatient (CLI) | payer MEDICARE, SELFPAY ==
--- NOTE | 2024-07-27 10:52 | NM_ITS ---
PROCEDURE: GASTRIC EMPTYING STUDY 07/27/2024 REASON FOR EXAM: ABDOMINAL PAIN COMPARISON: None. TECHNIQUE: The patient ingested a semi-solid meal of oatmeal. There was no vomiting postprandially. Diarrhea proceeded shortly after eating. Anterior and posterior planar images of the upper abdomen were obtained for a total of 60 minutes. Regions of interest were drawn, and a geometric mean was used to calculate a [id number]. Medications taken in the past 24 hours that may affect gastric emptying: None RADIOPHARMACEUTICAL: 1.1 mCi technetium 99 M sulfur colloid administered orally within the oatmeal. FINDINGS: During the time of imaging, gastroesophageal reflux was not visualized. Linear fit gastric emptying half-time of 32.2 minutes. The calculated gastric emptying at 11.5 minutes was 31%, at 29.5 minutes 53%, at 47.5 minutes 77%, and at 59.5 minutes 83%. NM/Gastric Emptying Study IMPRESSION: No evidence of delayed gastric emptying of semi-solid meal. Reading Location: [place] [address]
== END | disposition home or self-care (01) ==
PROVIDERS: PCP Student in an Organized Health Care Education/Training Program; Referring Provider Internal Medicine Gastroenterology; Visit Provider Internal Medicine Gastroenterology
DX: R19.7 Diarrhea, unspecified (principal)
CPT/HCPCS: 78264; A9541

== ENCOUNTER 2024-08-18 16:11 | Emergency (ER) | payer MEDICARE, SELFPAY ==
[2024-08-18 16:14] VITALS: BP 178/94; PULSE 60; RESP 22; TEMP 36.1; O2SAT 99; BMI 26.6
--- NOTE | 2024-08-18 16:24 | EKG12_ITS ---
Test Reason : SOB/PAIN Blood Pressure : */* mmHG Vent. Rate : 52 BPM Atrial Rate : 52 BPM P-R Int : 180 ms QRS Dur : 82 ms QT Int : 420 ms P-R-T Axes : 72 -4 56 degrees QTcB Int : 390 ms Sinus bradycardia Nonspecific ST abnormality Abnormal ECG Confirmed by BALDEMAR GONZALES, FELA ([id number]), assistant production editor ELENA DALLAS ([id number]) on 08/23/2024 6:20:09 AM Referred By: BERNARDO/JOSE MIGUEL Confirmed By: FELA MCDERMOTT MD
--- NOTE | 2024-08-18 17:12 | EDS_ITS ---
HPI History of Present Illness Chief Complaint: Back Informant: patient, spouse/S.O. and family Onset/Context/Timing Onset: Today Current Severity: Mild Maximum Severity: Moderate Worsened by: improves with Movement and Bending Relieved by: Nothing Narrative Narrative: 84-year-old female history of A-fib on Eliquis, hypertension and prior stroke. Yesterday were moving furniture. She is driving pain today around 330 in her right posterior rib cage back area below her right shoulder blade. No chest pain. No shortness of breath. Denies any recent fall injury or trauma. Had similar pain 2 weeks ago but it was much less severe she had x-rays done at that time which were reportedly negative. Denies any history of DVT or PE and she is on a blood thinner. Prior similar symptoms: Yes (But not as severe.) Recent Illness/Hospitalization: No PFSH PFS Medical History Paroxysmal atrial fibrillation Torn meniscus Essential hypertension Sinus bradycardia Nonrheumatic pulmonary valve insufficiency Nonrheumatic tricuspid valve regurgitation Nonrheumatic aortic (valve) insufficiency Irregular heartbeat Hyperlipidemia Screening for intestinal cancer History of poliomyelitis Left hemiparesis Numbness Stroke Home Medications ?Medication ?Instructions ?Recorded ?Last Taken ?Type cholecalciferol (vitamin D3) 125 125 mcg PO DAILY 12/06 Unknown History mcg (5,000 unit) tablet magnesium 200 mg tablet 200 mg PO DAILY 05/31/22 Unk nown History zinc gluconate 50 mg tablet 50 mg PO DAILY 02/04/23 Un known History diltiazem HCl 120 mg 120 mg PO DAILY 04/03/23 Unk nown History capsule,extended release 24 hr irbesartan 300 mg tablet 300 mg PO BID BP 08/12/23 Un known History carvedilol 12.5 mg tablet (Coreg) 12.5 mg PO BID #180 tabs 02/09/24 Unknown Rx apixaban 5 mg tablet (Eliquis) 5 mg PO BID please diaz ge quantity 05/17/24 Unknown Rx to 30 days. #60 tabs berberine chloride 500 mg capsule 500 mg PO QDAY 07/07 Unknown History niacin 500 mg tablet 500 mg PO QDAY 07/07/24 Unkn own History spironolactone 25 mg tablet 25 mg PO QDAY 07/07/24 Unk nown History hydrocodone-acetaminophen 5-325mg 1 tab PO Q6H PRN russell n 5 days #10 08/18/24 Unknown Rx 5mg-325mg tabs metaxalone 800 mg tablet 800 mg PO TID 7 days #21 tab s 08/18/24 Unknown Rx Allergy/AdvReac Type Severity Reaction Status Date / Time shellfish derived Allergy Swelling Verified 08/18/24 16:13 atorvastatin AdvReac Severe Diarrhea Verified 08/18/24 16:13 amlodipine AdvReac fatigue Verified 08/18/24 16:13 Family History Mother CVA (cerebral vascular accident) Hypertension Daughter Thyroid disorder Surgical History History of cholecystectomy H/O colonoscopy S/P trigger finger release Social History household members: spouse housing: house current occupational status: retired Smoking Status: Never smoker alcohol intake: never substance use type: does not use ROS ROS ED ROS Narrative 84-year-old female denies recent illness. Constitutional Constitutional ED: Denies chills or fever(s) Eyes Eyes: Denies blurry vision ENT ENT ED: Denies ear pain Cardiovascular Cardiovascular: Denies chest pain Respiratory/Chest Respiratory/Chest: Denies dyspnea Gastrointestinal Gastrointestinal: Denies abdominal pain Genitourinary Genitourinary ED: Denies dysuria or hematuria Musculoskeletal Musculoskeletal: Reports back pain and other Details: Right posterior rib cage pain. ; Denies arthralgias Integumentary Denies abscess Neurologic Neurologic: Denies headache(s) Psychiatric Psychiatric: Denies anxiety Endocrine Endocrinology: Denies cold intolerance Hematologic/Lymphatic Hematologic/Lymphatic: Denies lymphadenopathy Allergic/Immunologic Allergic/Immunologic ED: Denies mouth swelling, tongue swelling or urticaria EXAM Physical Exam Narrative Exam Narrative: Well-appearing 84-year-old female. Vital signs are stable and afebrile. Pulse ox 91% on room air no hypoxia. Daughter and present in the room. H EENT exam pupils round react light. Moist mucous membranes. Neck nontender no JVD. Lungs clear to auscultation bilaterally. Heart rate about 60 no murmur. Chest wall ribs nontender. Abdomen soft nontender. Moving all 4 extremities. 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 Equal symmetrical radial pulses. Calves are nontender. Normal dorsi plantarflexion. Back she has reproducible musculoskeletal soft tissue and rib cage pain right posterior back just below her shoulder blade. Th ere is no ecchymosis or bruising. There is no redness or warmth. The left posterior rib cage is nontender. She has normal range of motion. She has increased discomfort with rotation about her trunk. Spine is nontender. Neurologically she is awake alert. Answer questions following commands. No focal motor deficits. Const Vital Signs: 08/18/24 16:14 Temperature 97 F L Temperature Source Temporal Pulse Rate 60 Respiratory Rate 22 H Blood Pressure 178/94 H Blood Pressure Mean 122 Pulse Ox 99 Oxygen Delivery Method Room Air Positive well nourished and well developed; Negative for obese, cachectic, contractures or unkempt General Appearance ED: well developed and NAD; Negative for unkempt, cachectic, contractures or pallor Nutritional Appearance: Negative for cachectic or obese HEENT Reports moist mucous membranes Negative for trauma or tenderness Eyes PERRL and EOMs intact bilaterally Neck no lymphadenopathy, supple and no JVD Resp normal respiratory effort and clear to auscultation bilaterally Cardio regular rate, regular rhythm, S1 normal heart sound, S2 normal heart sound and no murmurs GI normal to inspection, nondistended, normoactive bowel sounds, soft to palpation, non-tender, non-distended and no masses Palpation: Negative for tender, guarding or pulsatile mass Back/Spine normal to inspection and no thoracic nor lumbar tenderness Back/Spine Narrative: Tenderness over her right posterior rib cage below her shoulder blade. There is no signs of trauma. No redness or warmth. No bruising. No crepitance. Normal in appearance. Cervical Spine: Negative for cervical spine tenderness Thoracic Spine / Upper Back: paraspinal muscle tenderness Extremity normal to inspection and no clubbing, cyanosis or edema General Extremety ED: Negative for edema or tenderness General Extremity: Negative for edema Neuro oriented x3 Sensorium / Orientation: alert; Negative for confused, lethargic or stuporous Motor Exam: strength 5/5 throughout Psych mental status grossly normal Appearance: Negative for unkempt Attitude: No agitated Mood & Affect: Negative for depressed, sad or tearful Skin no rashes or lesions noted and no wounds General Skin Exam: Negative for jaundice or pallor Lesions: No lesion noted Rashes: No rashes noted Trauma: Negative for abrasion or puncture Wounds: Negative for wounds noted MDM MDM MDM Narrative Medical decision making narrative: 84-year-old female right posterior rib cage pain she was moving furniture yesterday had similar pain 2 weeks ago but was not as severe. I think this is musculoskeletal. I am obtaining a plain chest x-ray AP and lateral and screening labs. She be given morphine for pain and Zofran to prevent nausea. I do not think she needs a CTA. It is reproducible. She has no history of DVT or PE. She is on Eliquis. This does not appear to be a dissection. Repeat exam patient is doing well at 6:50 PM. I discussion with her and both daughters present in the room. I do think this is musculoskeletal. Reproducible pain. It is by her right shoulder blade. It is not in her abdomen or chest it is not in her lower back. Morphine appeared to help her. I will give her another dose of morphine prior to discharge. She will be discharged ho me with pain medicine. Muscle relaxant. Outpatient follow-up as needed. Hot shower. Warm bath. Massage. History & Record Review Discussion w/independent historian: Patient and Family Additional record(s) reviewed:: Prior inpatient record, Prior outpatient record, Prior ED visit and Prior labs Lab Data Attestation: I reviewed the patient's lab results. Lab results narrative: CBC white count 7. H&H 12.636. Platelets 353. CMP shows a sodium 138 gap 13. BUN and creatinine 25 0.8. Glucose 100. Chest x-ray negative. EKG sinus bradycardia. Labs: Laboratory Results - last 24 hr 08/18/24 16:20 WBC 7.4 RBC 3.99 L Hgb 12.6 Hct 36.9 L MCV 92.5 MCH 31.6 MCHC 34.1 RDW Std Deviation 41.6 RDW Coeff of Michelle 12.2 Plt Count 353 MPV 10.1 Immature Gran % (Auto) 0.400 Neut % (Auto) 57.6 Lymph % (Auto) 30.7 [place] % (Auto) 8.7 Eos % (Auto) 1.8 Baso % (Auto) 0.8 Absolute Neuts (auto) 4.3 Absolute Lymphs (auto) 2.26 Nucleated RBC % 0 Sodium 138 Potassium 4.3 Chloride 104 Carbon Dioxide 20.6 L Anion Gap 13 BUN 25 H Creatinine 0.87 Estim Creat Clear Calc 47.19 L Est GFR (MDRD) Non-Af 66 BUN/Creatinine Ratio 29.1 H Glucose 100 H Calcium 9.8 Radiography Chest X-Ray - ED: 2 View, Read by ED Physician, Read by Radiologist, Heart, Lungs, Mediastinum, Bony Structures, No Acute Disease and Chronic Changes Diagnostic Testing: Clinical Impression(s) from Imaging Studies Chest X-Ray 08/18/24 17:22 IMPRESSION: No focal consolidations. Reading Location: [facility] Chest x-ray, 2 views, AP and lateral, interpreted myself and radiologist. No acute process. Normal cardiac silhouette. Normal lung major. Chronic changes. No pneumonia. No effusion. No pneumothorax. No mass. Rhythm Strip Rhythm Strip: Sinus Rhythm Rate: 52 Ectopy: None EKG Initial EKG: Attestation: I personally reviewed and interpreted this EKG as follows: Interpretation: No Acute Injury Pattern and Sinus Bradycardia Comments: Sinus bradycardia rate of 52 no acute signs of AK or ischemia. Discharge Plan Triage Chief Complaint: Back ED Provider: John Campbell Dx/Rx/DC Orders Clinical Impression: Back strain, Muscle spasm, History of atrial fibrillation, Chronic anticoagulation Instructions: ED Back Sprain/Strain Prescriptions: New metaxalone 800 mg tablet 800 mg PO TID 7 Days Qty: 21 0RF hydrocodone-acetaminophen 5-325 mg tablet 1 tab PO Q6H PRN (Reason: pain) 5 Days Qty: 10 0RF No Action irbesartan 300 mg tablet 300 mg PO BID magnesium 200 mg tablet 200 mg PO DAILY cholecalciferol (vitamin D3) 125 mcg (5,000 unit) tablet 125 mcg PO DAILY zinc gluconate 50 mg tablet 50 mg PO DAILY spironolactone 25 mg tablet 25 mg PO QDAY niacin 500 mg tablet 500 mg PO QDAY berberine chloride 500 mg capsule 500 mg PO QDAY diltiazem HCl 120 mg capsule,extended release 24hr 120 mg PO DAILY carvedilol [Coreg] 12.5 mg tablet 12.5 mg PO BID Qty: 180 3RF Rx Instructions: must administer with a meal/food Eliquis 5 mg tablet 5 mg PO BID Qty: 60 11RF Primary Care Provider: Osiel Gamble Referrals: Osiel Gamble, [Primary Care Provider] - 1 Week if not improving Activity Restrictions/Additional Instructions: Your labs, chest x-ray and EKG look good. This appears to be musculoskeletal pain on your back. You probably pulled a muscle on your back or between your rib cage. Hot shower, warm bath, massage. Ice and alternate with warm compresses. Harris for severe pain. If you use a narcotic pain medication drink plenty of fluids, fiber, fruits and vegetables and stool softener as needed to prevent constipation. Do not drive if using it. Be careful on steps. The muscle relaxant Skelaxin 1 pill 3 times a day. You should start feeling some improvement in the next 72 to 96 hours. Print Language: Persian Disposition Disposition: Home, Self Care
[2024-08-18] MEDS: Morphine 4 MG/ML Syringe IV ×2 (17:15→19:28)
[2024-08-18] MEDS: Ondansetron 4 MG/2 ML Vial IV (17:15)
[2024-08-18 17:18] LABS: Absolute Lymphocyte Count 2.26 X10^3/uL (0.83-4.51); Absolute Neutrophil Count 4.3 X10^3/uL (2.0-7.7); Basophil# 0.06 X10^3/uL; Basophil% 0.8 % (0-1); Eosinophil# 0.13 X10^3/uL; Eosinophils% 1.8 % (0-5); Hematocrit 36.9 % (37-47); Hemoglobin 12.6 g/dL (12.0-15.0); Lymphocyte # 2.26 X10^3/ul (0.83-4.51); Lymphocyte % 30.7 % (19-41); Mean Corp Hgb Conc 34.1 g/dL (32-36); Mean Corpuscular Hgb 31.6 pg (27.0-32.0); Mean Corpuscular Volume 92.5 fL (81-99); Mean Platelet Vol. 10.1 fl (6.2-12.0); Monocyte# 0.64 X10^3/uL; Monocyte% 8.7 % (0-10); NRBC Flagged by Analyzer 0 % (0-5); Neutrophil # 4.25 X10^3/uL (2.7-7.7); Neutrophil % 57.6 % (47-70); Platelet Count 353 K/mm3 (150-450); RBC Distribution Width CV 12.2 % (11.6-14.6); RBC Distribution Width SD 41.6 fl (35.1-43.9); Red Blood Count 3.99 M/mm3 (4.2-5.4); White Blood Count 7.4 K/mm3 (4.4-11.0)
--- NOTE | 2024-08-18 17:22 | RAD_ITS ---
PROCEDURE: CHEST PA AND LATERAL 08/18/2024 REASON FOR EXAM: ATRAUMATIC RIGHT POSTERIOR RIB CAGE/BACK PAIN TECHNIQUE: Frontal and lateral views of the chest. COMPARISON: 03/10/2024 FINDINGS: No focal consolidations. No pleural effusion or pneumothorax. Cardiac silhouette is unchanged. No acute fractures. RAD/Chest PA and Lateral IMPRESSION: No focal consolidations. Reading Location: [id number]
[2024-08-18 18:12] VITALS: BP 147/58; PULSE 51; RESP 16; O2SAT 98
[2024-08-18 18:18] LABS: Anion Gap 13 (5-15); BUN 25 mg/dL (4-19); BUN/Creat Ratio 29.1 RATIO (10-20); Calcium,Total 9.8 mg/dL (7.6-11.0); Carbon Dioxide 20.6 mmol/L (21.0-32.0); Chloride 104 mmol/L (98-108); Creatinine, Serum 0.87 mg/dL (0.70-1.20); EST Glomerular Filtration Rate 66 (>60); Estimated Creatinine Clearance 47.19 ml/min (50-250); Glucose 100 mg/dL (70-99); Potassium 4.3 mmol/L (3.3-5.1); Sodium Level 138 mmol/L (133-145)
[2024-08-18 19:31] VITALS: BP 156/58; PULSE 50; RESP 14; TEMP 36.7; O2SAT 100
== END 2024-08-18 19:44 | disposition home or self-care (01) ==
PROVIDERS: Emergency Provider Emergency Medicine; PCP Student in an Organized Health Care Education/Training Program; Visit Provider Emergency Medicine
DX: S29.012A Strain of muscle and tendon of back wall of thorax, initial encounter (principal); I48.0 Paroxysmal atrial fibrillation; X58.XXXA Exposure to other specified factors, initial encounter; I10 Essential (primary) hypertension; M62.838 Other muscle spasm; Z79.01 Long term (current) use of 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; Z79.899 Other long term (current) drug therapy
CPT/HCPCS: 71046; 80048; 85025; 93005; 96374; 96375; 96376; 99284; A4216; J2405

== ENCOUNTER → 2024-11-12 | Outpatient (CLI) | payer MEDICARE, SELFPAY ==
[2024-11-12 12:49] LABS: Hematocrit 36.8 % (37-47); Hemoglobin 12.2 g/dL (12.0-15.0); Immature Granulocytes Count 0.020 X10^3/uL (0.0-0.0); Mean Corp Hgb Conc 33.2 g/dL (32-36); Mean Corpuscular Volume 93.6 fL (81-99); Mean Platelet Vol. 9.9 fl (6.2-12.0); NRBC Flagged by Analyzer 0 % (0-5); Platelet Count 311 K/mm3 (150-450); RBC Distribution Width CV 12.0 % (11.6-14.6); RBC Distribution Width SD 42.2 fl (35.1-43.9); Red Blood Count 3.93 M/mm3 (4.2-5.4); White Blood Count 6.3 K/mm3 (4.4-11.0)
[2024-11-12 14:08] LABS: Anion Gap 12 (5-15); BUN 25 mg/dL (4-19); BUN/Creat Ratio 33.2 RATIO (10-20); Calcium,Total 9.4 mg/dL (7.6-11.0); Carbon Dioxide 22.4 mmol/L (21.0-32.0); Chloride 103 mmol/L (98-108); Glucose 98 mg/dL (70-99); Potassium 4.7 mmol/L (3.3-5.1)
[2024-11-12 14:44] LABS: Free T3 2.7 pg/mL (2.18-3.98); Vitamin D,25 Hydroxy 38.0 ng/mL (30-100)
== END | disposition home or self-care (01) ==
LOC: LAB 12:05
PROVIDERS: PCP Student in an Organized Health Care Education/Training Program; Referring Provider Nurse Practitioner Gerontology; Visit Provider Nurse Practitioner Gerontology
DX: E55.9 Vitamin D deficiency, unspecified (principal); R53.83 Other fatigue
CPT/HCPCS: 36415; 80048; 82306; 84439; 84443; 84481; 85025

== ENCOUNTER → 2024-12-14 | Outpatient (CLI) | payer MEDICARE, SELFPAY ==
--- OUTSIDE RECORDS SUMMARY | 2024-12-02 16:09 | XMS RPT_ITS ---
Author Name Auto Generated Organization OHIP Support Name Relationship Address Phone NAILA ANTONY Next of Kin [phone] [place] [address] + ~([phone] NAILA ANTONY Next of Kin [address] [place] [address] + ~([phone] NAILA ANTONY Next of Kin [address] [place] [address] + ~(937 NAILA ANTONY Next of Kin [address] [place] [address] + ~(937 ARPAN, NAILA Next of Kin [address] [place] [address] + ~(937 LUL ANTONYRY Next of Kin [address] [place] [address] + ~(937 LUL ANTONYRY Next of Kin [address] [place] [address] + ~(937 ANTONY, NAILA Next of Kin [address] [place] [address] + ~(937 ARPAN, NAILA Next of Kin [address] [place] [address] + ~(937 ANTONY, NAILA Next of Kin [address] [place] [address] + ~(937 ANTONY, NAILA Next of Kin [address] [place] [address] + ~(937 ANTONY, NAILA Next of Kin [address] [place] [address] + ~(937 ANTONY, NAILA Next of Kin [address] [place] [address] + ~(937 ANTONY, NAILA Next of Kin [address] [place] [address] + ~(937 ANTONY, NAILA Next of Kin [address] [place] [address] + ~(937 ANTONY, NAILA Next of Kin [address] [place] [address] + ~(937 ANTONY, NAILA Next of Kin [address] [place] [address] + ~(937 ANTONY, NAILA Next of Kin [address] [place] [address] + ~([phone] Care Team Providers Care Bench Carpenter Name Role Phone ROSA ELENA MIX Attending Unavailable ROSA ELENA MIX Referring Unavailable ROSA ELENA MIX Attending Unavailable HALKRISTA DOGIL Attending Unavailable HALKO DO, GIL Primary Care Unavailable HALKO DO, GIL Primary Care Unavailable HALKO DO, GIL Attending Unavailable HALKO DO, GIL Primary Care Unavailable HALKO DO, GIL Attending Unavailable HALKRISTA DO, GIL Primary Care Unavailable ROSA ELENA MIX MD Attending Unavailabl e HALKO DO, GIL Primary Care Unavailable HALKO DO, GIL Attending Unavailable HALKO DO, GIL Primary Care Unavailable HALKO DO, GIL Attending Unavailable HALKO DO, GIL Primary Care Unavailable KATALINA CASTILLO Attending Unavailab le HALKO DO, GIL Primary Care Unavailable HALKO DO, GIL Attending Unavailable TATO ESTEBAN DO Attending Unavailable HALKO DO, GIL Primary Care Unavailable PROBLEMS DATE TYPE CONDITION / CODE ATTENDING STATUS [facility] 12/02/2024 Admitting Diagnosis Encounter for general adult medical examination without abnormal findings / Z00.00(ICD-10) [facility] 08/13/2024 Admitting Diagnosis Unspecified abdominal pain / R10.9(ICD-10) TATO ESTEBAN DO [facility] 03/02/2024 Admitting Diagnosis Lower abdominal pain, unspecified / R10.30(ICD-10) [facility], [facility] 03/02/2024 Admitting Diagnosis Frequency of micturition / R35.0(ICD-10) [facility], [facility] 01/01/2024 Admitting Diagnosis Encounter for therapeutic drug level monitoring / Z51.81(ICD-10) [facility] 12/16/2023 Admitting Diagnosis Essential (primary) hypertension / I10(ICD-10) [facility] PROCEDURES No Procedure Records Found RESULTS MALBR Collected: 12/02/2024 4:09 PM Status: F Source: [facility] TYPE CODE TESTS RESULT OUT OF RANGE REFERENCE UNITS LAB CRU(LOINC) U Creatinine 65.2 mg/dL LAB MRUR(LOINC) U Microalb 5.2 mg/L LAB RMAL(LOINC) U Ratio Alb/Cre 8 0-30 mg/G Performed By: #### MALBR ### # [facility] [address] [place], [place] [address] CUR Observed: 08/13/2024 1:15 PM Status: F Source: [facility] . MICRO - Microbiology PROCEDURE: Urine Culture [*1] SOURCE: Urine, Clean Catch BODY SITE: COLLECTED DATE/TIME: 08/13/2024 13:15 EDT RECEIVED DATE/TIME: 08/13/2024 19:32 EDT START DATE/TIME: 08/13/2024 19:32 EDT FREE TEXT SOURCE: FINAL REPORTS Final Report [] Verified Date/Time/Personnel: 08/14/2024 14:10 EDT <10,000 cfu/ml. No Significant growth. Sensitivity not indicated. PRELIMINARY REPORTS Preliminary Report [] Verified Date/Time/Personnel: 08/13/2024 20:59 EDT Specimen received in lab. Performing Locations *1: This test was performed at: [facility], [address] [place] [address], [address] , CBC Collected: 8:29 AM Status: F Source: [facility] TYPE CODE TESTS RESULT OUT OF RANGE REFERENCE UNITS LAB WBC(LOINC) WBC 5.6 4.5-10.8 10 3/mcL LAB RBCCT(LOINC) RBC 4.13 4.10-5.30 10 6/mcL LAB HGB(LOINC) Hgb 12.8 12.0-16.0 G/dL LAB HCT(LOINC) Hct 37.9 34.0-46.0 % LAB MCV(LOINC) MCV 91.7 80.0-99.0 fL LAB MCH(LOINC) MCH 31.1 27.0-33.0 pg LAB MCHC(LOINC) MCHC 33.9 32.0-36.0 G/dL LAB RDW(LOINC) RDW 12.6 11.5-15.5 % LAB PLT(LOINC) Platelet 307 150-450 10 3/mcL LAB MPV(LOINC) MPV 8.1 6.6-10.5 fL Performed By: #### FERR, GFR , ADIFF, CBC, TSH, ANEU, CMP, VIDH, LIPID #### [address] [address] #### FT4 #### [place] [address] .AUTO DIFF Collected: 05/28/2024 8:29 AM Status: F Source: [facility] TYPE CODE TESTS RESULT OUT OF RANGE REFERENCE UNITS LAB MIR(LOINC) Neutrophil % 57.7 50.0-75.0 % LAB LYM(LOINC) Lymphocyte % 30.8 20.0-40.0 % LAB MON(LOINC) Monocyte % 8.0 2.0-13.0 % LAB EO(LOINC) Eosinophil % 2.7 0.0-7.0 % LAB BAS(LOINC) Basophil % 0.8 0.0-2.5 % LAB ABLYM(LOINC) Lymphocyte, Absolute 1.7 0.9-4.3 10 3/mcL LAB TREASURE(LOINC) Monocyte, Absolute 0.4 0.1-1.4 10 3/mcL LAB AEOS(LOINC) Eosinophil, Absolute 0.2 0.0-0.7 10 3/mcL LAB ABAS(LOINC) Basophil, Absolute 0.0 0.0-0.2 10 3/mcL Performed By: #### FERR, GFR , ADIFF, CBC, TSH, ANEU, CMP, VIDH, LIPID #### [address] [address] #### FT4 #### [place] [address] .NEUABS Collected: 8:29 AM Status: F Source: [facility] TYPE CODE TESTS RESULT OUT OF RANGE REFERENCE UNITS LAB ANEU(LOINC) Neutrophil, Absolute 3.2 2.3-8.1 10 3/mcL Performed By: #### FERR, GFR , ADIFF, CBC, TSH, ANEU, CMP, VIDH, LIPID #### [address] [address] #### FT4 #### [place] [address] FERR Collected: 8:29 AM Status: F Source: [facility] TYPE CODE TESTS RESULT OUT OF RANGE REFERENCE UNITS LAB FERR(LOINC) Ferritin 242.0 8.0-252.0 ng/mL Performed By: #### FERR, GFR , ADIFF, CBC, TSH, ANEU, CMP, VIDH, LIPID #### [address] [address] #### FT4 #### [place] [address] TSH Collected: 8:29 AM Status: F Source: [facility] TYPE CODE TESTS RESULT OUT OF RANGE REFERENCE UNITS LAB TSH(LOINC) TSH 3.10 0.36-3.74 mcIU/mL Performed By: #### FERR, GFR , ADIFF, CBC, TSH, ANEU, CMP, VIDH, LIPID #### [address] [address] #### FT4 #### [address] [address] CMP Collected: 05/28/2024 8:29 AM Status: F Source: [facility] TYPE CODE TESTS RESULT OUT OF RANGE REFERENCE UNITS LAB GLU(LOINC) Glucose Level 93 83-110 mg/dL LAB NA(LOINC) Sodium Level 140 136-145 mmol/L LAB K(LOINC) Potassium Level 4.5 3.5-5.1 mmol/L LAB CL(LOINC) Chloride 104 98-107 mmol/L LAB CO2(LOINC) CO2 29 23-31 mmol/L LAB EBAL(LOINC) Electrolyte Balance 7.0 4.0-15.0 mEq/L LAB BUN(LOINC) BUN 23 High 7-18 mg/dL LAB CRE(LOINC) Creatinine Lvl (s) 0.85 0.55-1.02 mg/dL Result Comment: Testing perf ormed on Siemens Dimension EXL analyzer using a modified kinetic Torri technique. LAB BC(LOINC) BUN/Creatinine Ratio 27 7-27 ratio LAB CA(LOINC) Calcium Lvl 9.2 8.4-10.2 mg/dL LAB PROT(LOINC) Total Protein 7.3 6.4-8.2 G/dL LAB ALB(LOINC) Albumin Level 4.1 3.4-4.8 G/dL LAB GLB(LOINC) Globulin 3.2 1.5-3.8 G/dL LAB AG(LOINC) A/G Ratio 1.3 1.1-2.5 ratio LAB BILT(LOINC) Bili Total 0.4 0.2-1.0 mg/dL Result Comment: Use of this assay is not recommended for patients undergoing treatment with eltrombopag due to the potential for falsely elevated results. LAB AP(LOINC) Alk Phos 75 40-135 U/L LAB AST(LOINC) AST/SGOT 17 10-40 U/L LAB ALT(LOINC) ALT/SGPT 23 14-59 U/L Performed By: #### FERR, GFR , ADIFF, CBC, TSH, ANEU, CMP, VIDH, LIPID #### [facility] [address] [place], [place] [address] #### FT4 #### [address] [address] .GFR Collected: 05/28/2024 8:29 AM Status: F Source: [facility] TYPE CODE TESTS RESULT OUT OF RANGE REFERENCE UNITS LAB eGFR(LOINC) Estimated Glomerular Filtration Rate 68 ml/min/1. 73sqm Result Comment: Stages of Chronic Kidney Disease (CKD) Stage Description eGFR(ml/min/1.73 sq.m.) CKD 1 Normal kidney function or >=90 normal kindney function with possible kidney damage (ex. Proteinuria) CKD 2 Kidney damage with mild loss 60-89 of kidney function CKD 3a Mild to moderate loss of kidney 45-59 function CKD 3b Moderate to severe loss of 30-44 of kindey function CKD 4 Severe loss of kidney function 15-29 CKD 5 Kidney failure <15 Note: (go live 2024) the eGFR calculation was updated to the 2020 CKD-EPI creatinine equation without a race factor to calculate the eGFR results. Performed By: #### FERR, GFR , ADIFF, CBC, TSH, ANEU, CMP, VIDH, LIPID #### [address] [address] #### FT4 #### [place] [address] LIPID Collected: 05/28/2024 8:29 AM Status: F Source: [facility] TYPE CODE TESTS RESULT OUT OF RANGE REFERENCE UNITS LAB CHOL(LOINC) Cholesterol 222 High 0-200 mg/dL Result Comment: Cholesterol Reference Interval: Less than 200 Desirable 200-239 Borderline high risk 240 and above High risk LAB TRIG(LOINC) Triglycerides 339 High 0-150 mg/dL Result Comment: Triglyceride Reference Interval: Less than 150 Normal 150-199 Borderline high risk 200-499 High risk 500 or higher Very high risk LAB HD(LOINC) HDL Cholesterol 46 40-60 mg/dL LAB LDL(LOINC) LDL Cholesterol 108 0-130 mg/dL Performed By: #### FERR, GFR , ADIFF, CBC, TSH, ANEU, CMP, VIDH, LIPID #### [address] [address] #### FT4 #### [place] [address] VIDH Collected: 03/14/202 5 8:29 AM Status: F Source: [facility] TYPE CODE TESTS RESULT OUT OF RANGE REFERENCE UNITS LAB VIDH(LOINC) Vit. D 25-Hydroxy 48.4 ng/mL Result Comment: Interpretive Values Based on Total 25(OH) Vitamin D: Deficient <20 ng/mL Insufficient 20 - <30 ng/mL Sufficient 30-100 ng/mL Performed By: #### FERR, GFR , ADIFF, CBC, TSH, ANEU, CMP, VIDH, LIPID #### [address] [address] #### FT4 #### [place] [address] FT4 Collected: 8:29 AM Status: F Source: [facility] TYPE CODE TESTS RESULT OUT OF RANGE REFERENCE UNITS LAB FT4(LOINC) Free T4 1.35 0.89-1.76 ng/dL Result Comment: Note - New Reference Range in effect 19 Performed By: #### FERR, GFR , ADIFF, CBC, TSH, ANEU, CMP, VIDH, LIPID #### [address] [address] #### FT4 #### [place] [address] CUR Observed: 03/02/2024 10:21 AM Status: F Source: [facility] . MICRO - Microbiology PROCEDURE: Urine Culture [*1] SOURCE: Urine, Clean Catch BODY SITE: COLLECTED DATE/TIME: 03/02/2024 10:21 EST RECEIVED DATE/TIME: 03/02/2024 19:19 EST START DATE/TIME: 03/02/2024 19:20 EST FREE TEXT SOURCE: FINAL REPORTS Final Report [] Verified Date/Time/Personnel: 03/04/2024 07:46 EST 10,000 - 50,000 cfu/ml Mixed growth consistent with normal urogenital ankur. PRELIMINARY REPORTS Preliminary Report [] Verified Date/Time/Personnel: 03/03/2024 09:17 EST No growth to date Performing Locations *1: This test was performed at: [address] [place], [address]- , [place] BMP Collected: 01/01/2024 12:29 PM Status: F Source: [facility] TYPE CODE TESTS RESULT OUT OF RANGE REFERENCE UNITS LAB GLU(LOINC) Glucose Level 122 High 83-110 mg/dL LAB NA(LOINC) Sodium Level 139 136-145 mmol/L LAB K(LOINC) Potassium Level 4.0 3.5-5.1 mmol/L LAB CL(LOINC) Chloride 102 98-107 mmol/L LAB CO2(LOINC) CO2 30 23-31 mmol/L LAB EBAL(LOINC) Electrolyte Balance 7.0 4.0-15.0 mEq/L LAB BUN(LOINC) BUN 24 High 7-18 mg/dL LAB CRE(LOINC) Creatinine Lvl (s) 0.76 0.55-1.02 mg/dL Result Comment: Testing perf ormed on Siemens Dimension EXL analyzer using a modified kinetic Torri technique. LAB BC(LOINC) BUN/Creatinine Ratio 32 High 7-27 ratio LAB CA(LOINC) Calcium Lvl 9.3 8.4-10.2 mg/dL Performed By: #### GFR, BMP #### [place] [address] .GFR Collected: 12:29 PM Status: F Source: [facility] TYPE CODE TESTS RESULT OUT OF RANGE REFERENCE UNITS LAB GFRAA(LOINC) GFR 88 ml/min/1. 73sqm Result Comment: GFR Population mean for , Non- Americans Ages 20-29 = 116 mL/min/1.73 sq.m. Ages 30-39 = 107 mL/min/1.73 sq.m. Ages 40-49 = 99 mL/min/1.73 sq.m. Ages 50-59 = 93 mL/min/1.73 sq.m. Ages 60-69 = 85 mL/min/1.73 sq.m. Ages 70+ = 75 mL/min/1.73 sq.m. Chronic Kidney Disease: Less than 60 mL/min/1.73 square meters End Stage Renal Disease: Less than 15 mL/min/1.73 square meters LAB GFRNO(LOINC) GFR Non- 73 ml/min/1. 73sqm Result Comment: GFR Population mean for , Non- Americans Ages 20-29 = 116 mL/min/1.73 sq.m. Ages 30-39 = 107 mL/min/1.73 sq.m. Ages 40-49 = 99 mL/min/1.73 sq.m. Ages 50-59 = 93 mL/min/1.73 sq.m. Ages 60-69 = 85 mL/min/1.73 sq.m. Ages 70+ = 75 mL/min/1.73 sq.m. Chronic Kidney Disease: Less than 60 mL/min/1.73 square meters End Stage Renal Disease: Less than 15 mL/min/1.73 square meters Performed By: #### GFR, BMP #### [address] [address] IFES Collected: 10:42 AM Status: F Source: [facility] TYPE CODE TESTS RESULT OUT OF RANGE REFERENCE UNITS LAB IFES([facility]) IFES Interpretation Immunofixation electrophoresis of serum shows the presence of only polyclonal immunoglobulins (IgG,A,M,[place] and Lambda), No monoclonal protein detected. Result Comment: Electronical ly Signed by: MONTANA PEARSON 12/29/2023 15:17 EDT Performed By: #### IFES #### [address] [address] UA Collected: 12/26/2023 10:42 AM Status: F Source: [facility] TYPE CODE TESTS RESULT OUT OF RANGE REFERENCE UNITS LAB SPCUA(LOINC) UA Specimen Type Clean Catch LAB CLRUA(LOINC) UA Color Yellow LAB APPUA(LOINC) UA Appear Clear Clear LAB SGUA(LOINC) UA Spec Grav 1.020 1.015-1.025 LAB GLUA(LOINC) UA Glucose Negative Negative mg/dL LAB BILUA(LOINC) UA Bili Negative Negative LAB KETUA(LOINC) UA Ketones 15 Abnormal Negative mg/dL LAB BLDUA(LOINC) UA Blood Negative Negative LAB PHUA(LOINC) UA pH 5.5 5.0 - 8.0 LAB PROUA(LOINC) UA Protein Negative Negative mg/dL LAB UROUA(LOINC) UA Urobilinogen 0.2 0.2-1.0 E.U ./dL LAB NITUA(LOINC) UA Nitrite Negative Negative LAB LEUUA(LOINC) UA Leuk Est Trace Abnormal Negative Performed By: #### UA, UAMIC AO #### [address] [address] .URINALYSIS MICROSCOPIC (AO) Collected: 12/26/2023 10:42 AM Status: F Source: [facility] TYPE CODE TESTS RESULT OUT OF RANGE REFERENCE UNITS LAB WBCUA(LOINC) UA WBC 0-5 Abnormal None Seen /hpf LAB RBCUA(LOINC) UA RBC 0-5 Abnormal None Seen /hpf Result Comment: Urine micros copic done on unspun specimen. BRM 12/26/23 LAB EPIUA(LOINC) UA Squam Epithelial 0-5 Abnormal None Seen /hpf LAB AMOUA(LOINC) UA Amorphus 1+ /hpf LAB BACUA(LOINC) UA Bacteria Trace Abnormal /hpf Performed By: #### UA, UAMIC AO #### [address] [address] UPE Collected: 10:41 AM Status: F Source: [facility] TYPE CODE TESTS RESULT OUT OF RANGE REFERENCE UNITS LAB UPE(LOINC) UPE Interpretation Electrophoresis of concentrated urine demonstrates the presence of a small amount of albumin and other globulins in a pattern similar to that of serum. This may be seen in diseases associated with mild glomerular dysfunction as well as postural proteinuria, transient proteinuria and . Result Comment: Electronical ly Signed by: MONTANA PEARSON 12/30/2023 19:38 EDT Performed By: #### UPE #### [address] [address] ESR Collected: 12/26/2023 10:34 AM Status: F Source: [facility] TYPE CODE TESTS RESULT OUT OF RANGE REFERENCE UNITS LAB ESR(LOINC) Erythrocyte Sed Rate 11 0-30 mm/hr Performed By: #### GFR, ESR, CRP, [id number], TSH, CMP #### [address] [address] #### B12, SPE #### [place] [id number] CRP Collected: 10:34 AM Status: F Source: [facility] TYPE CODE TESTS RESULT OUT OF RANGE REFERENCE UNITS LAB CRP(LOINC) C-Reactive Protein 0.4 High 0.0-0.3 mg/dL Performed By: #### GFR, ESR, CRP, [id number], TSH, CMP #### [place] [address] [place], [place] [address] #### B12, SPE #### [address] [address] TSH Collected: 10:34 AM Status: F Source: [facility] TYPE CODE TESTS RESULT OUT OF RANGE REFERENCE UNITS LAB TSH(LOINC) TSH 2.32 0.36-3.74 mcIU/mL Performed By: #### GFR, ESR, CRP, [id number], TSH, CMP #### [place] [address] [place], [place] [address] #### B12, SPE #### [address] [address] CMP Collected: 12/26/2023 10:34 AM Status: F Source: [facility] TYPE CODE TESTS RESULT OUT OF RANGE REFERENCE UNITS LAB GLU(LOINC) Glucose Level 109 83-110 mg/dL LAB NA(LOINC) Sodium Level 138 136-145 mmol/L LAB K(LOINC) Potassium Level 4.6 3.5-5.1 mmol/L LAB CL(LOINC) Chloride 101 98-107 mmol/L LAB CO2(LOINC) CO2 30 23-31 mmol/L LAB EBAL(LOINC) Electrolyte Balance 7.0 4.0-15.0 mEq/L LAB BUN(LOINC) BUN 30 High 7-18 mg/dL LAB CRE(LOINC) Creatinine Lvl (s) 1.14 High 0.55-1.02 mg/dL Result Comment: Testing perf ormed on Siemens Dimension EXL analyzer using a modified kinetic Torri technique. LAB BC(LOINC) BUN/Creatinine Ratio 26 7-27 ratio LAB CA(LOINC) Calcium Lvl 9.6 8.4-10.2 mg/dL LAB PROT(LOINC) Total Protein 6.9 6.4-8.2 G/dL LAB ALB(LOINC) Albumin Level 4.0 3.4-4.8 G/dL LAB GLB(LOINC) Globulin 2.9 G/dL LAB AG(LOINC) A/G Ratio 1.4 1.1-2.5 ratio LAB BILT(LOINC) Bili Total 0.5 0.2-1.0 mg/dL Result Comment: Use of this assay is not recommended for patients undergoing treatment with eltrombopag due to the potential for falsely elevated results. LAB AP(LOINC) Alk Phos 92 40-135 U/L LAB AST(LOINC) AST/SGOT 15 10-40 U/L LAB ALT(LOINC) ALT/SGPT 25 14-59 U/L Performed By: #### GFR, ESR, CRP, [id number], TSH, CMP #### [address] [address] #### B12, SPE #### [address] [address] .GFR Collected: 4 10:34 AM Status: F Source: [facility] TYPE CODE TESTS RESULT OUT OF RANGE REFERENCE UNITS LAB GFRAA(LOINC) GFR 55 ml/min/1. 73sqm Result Comment: GFR Population mean for , Non- Americans Ages 20-29 = 116 mL/min/1.73 sq.m. Ages 30-39 = 107 mL/min/1.73 sq.m. Ages 40-49 = 99 mL/min/1.73 sq.m. Ages 50-59 = 93 mL/min/1.73 sq.m. Ages 60-69 = 85 mL/min/1.73 sq.m. Ages 70+ = 75 mL/min/1.73 sq.m. Chronic Kidney Disease: Less than 60 mL/min/1.73 square meters End Stage Renal Disease: Less than 15 mL/min/1.73 square meters LAB GFRNO(LOINC) GFR Non- 46 ml/min/1. 73sqm Result Comment: GFR Population mean for , Non- Americans Ages 20-29 = 116 mL/min/1.73 sq.m. Ages 30-39 = 107 mL/min/1.73 sq.m. Ages 40-49 = 99 mL/min/1.73 sq.m. Ages 50-59 = 93 mL/min/1.73 sq.m. Ages 60-69 = 85 mL/min/1.73 sq.m. Ages 70+ = 75 mL/min/1.73 sq.m. Chronic Kidney Disease: Less than 60 mL/min/1.73 square meters End Stage Renal Disease: Less than 15 mL/min/1.73 square meters Performed By: #### GFR, ESR, CRP, [id number], TSH, CMP #### [facility] [address] [place], [place] [address] #### B12, SPE #### [facility] [address] [place] [address] B12 Collected: 4 10:34 AM Status: F Source: [facility] TYPE CODE TESTS RESULT OUT OF RANGE REFERENCE UNITS LAB B12(LOINC) Vitamin B12 Lvl 516 211-911 pg/mL Performed By: #### GFR, ESR, CRP, 067426, TSH, CMP #### [facility] [address] [place], [place] [address] #### B12, SPE #### [facility] [address] [place] [address] SPE Collected: 4 10:34 AM Status: F Source: [facility] TYPE CODE TESTS RESULT OUT OF RANGE REFERENCE UNITS LAB PROT(LOINC) Total Protein 6.9 5.7-8.2 G/dL Result Comment: Note - New Reference Range in effect 19 LAB PEALB(LOINC) Albumin 3.6 3.3-5.0 G/dL LAB PEA1(LOINC) Alpha 1 0.2 0.1-0.4 G/dL LAB PEA2(LOINC) Alpha 2 0.9 0.6-1.2 G/dL LAB PEB(LOINC) Beta 1.3 0.6-1.3 G/dL LAB PEGLB(LOINC) Gamma 0.9 0.7-1.6 G/dL LAB PECOM(LOINC) SPE Interpretation Normal serum protein electrophoresis pattern. No abnormality detected. Result Comment: Electronical ly Signed by: MONTANA PEARSON 12/30/2023 19:36 EDT Performed By: #### GFR, ESR, CRP, [id number], TSH, CMP #### [facility] [address] [place], [place] [address] #### B12, SPE #### [facility] [address] [place] [address] HMETB Collected: 10:34 AM Status: F Source: [facility] TYPE CODE TESTS RESULT OUT OF RANGE REFERENCE UNITS LAB 796587(LOINC) Lead Bld Lvl 2.2 0.0-3.4 UG/DL Result Comment: Testing perf ormed by Inductively coupled plasma/Mass Spectrometry. This test was developed and its performance characteristics determined by [facility]. It has not been cleared or approved by the Food and Drug Administration. Environmental Exposure: WHO Recommendation <5.0 Occupational Exposure: OSHA Lead Std 40.0 KD 30.0 Detection Limit = 1.0 LAB 325534(LOINC) Arsenic Bld Lvl 4 0-9 UG/L Result Comment: This test wa s developed and its performance characteristics determined by [facility]. It has not been cleared or approved by the Food and Drug Administration. Detection Limit = 1 LAB 927353(LOINC) Mercury Bld Lvl <1.0 0.0-14.9 UG/L Result Comment: This test wa s developed and its performance characteristics determined by [facility]. It has not been cleared or approved by the Food and Drug Administration. Detection Limit = 1.0 LAB 607557(LOINC) Cadmium Bld Lvl <0.5 0.0-1.2 UG/L Result Comment: This test wa s developed and its performance characteristics determined by [facility]. It has not been cleared or approved by the Food and Drug Administration. Environmental Exposure: Nonsmokers 0.3 - 1.2 Smokers 0.6 - 3.9 Occupational Exposure: OSHA Cadmium Std 5.0 KD 5.0 Detection Limit = 0.5 Performed At: [facility] [address] [id number] Himanshu Armendariz MD Ph:[phone] LAB BLSRCE(LOINC) Blood Lead Type Venous LAB BLPURP([facility]) Blood Lead Purpose Initial Performed By: #### GFR, ESR, CRP, 103750, TSH, CMP #### [address] [address] #### B12, SPE #### [address] [address] CBC Collected: 9:53 AM Status: F Source: [facility] TYPE CODE TESTS RESULT OUT OF RANGE REFERENCE UNITS LAB WBC(LOINC) WBC 5.8 4.5-10.8 10 3/mcL LAB RBCCT(LOINC) RBC 4.50 4.10-5.30 10 6/mcL LAB HGB(LOINC) Hgb 13.6 12.0-16.0 G/dL LAB HCT(LOINC) Hct 40.6 34.0-46.0 % LAB MCV(LOINC) MCV 90.2 80.0-99.0 fL LAB MCH(LOINC) MCH 30.3 27.0-33.0 pg LAB MCHC(LOINC) MCHC 33.6 32.0-36.0 G/dL LAB RDW(LOINC) RDW 13.3 11.5-15.5 % LAB PLT(LOINC) Platelet 307 150-450 10 3/mcL LAB MPV(LOINC) MPV 8.1 6.6-10.5 fL Performed By: #### ANEU, MIL FF, TSH, CBC, FT4, GFR, BMP #### [address] [address] #### PALOMA #### [address] [address] .AUTO DIFF Collected: 12/16/2023 9:53 AM Status: F Source: [facility] TYPE CODE TESTS RESULT OUT OF RANGE REFERENCE UNITS LAB MIR(LOINC) Neutrophil % 59.8 50.0-75.0 % LAB LYM(LOINC) Lymphocyte % 28.2 20.0-40.0 % LAB MON(LOINC) Monocyte % 9.4 2.0-13.0 % LAB EO(LOINC) Eosinophil % 1.4 0.0-7.0 % LAB BAS(LOINC) Basophil % 1.2 0.0-2.5 % LAB ABLYM(LOINC) Lymphocyte, Absolute 1.6 0.9-4.3 10 3/mcL LAB TREASURE(LOINC) Monocyte, Absolute 0.5 0.1-1.4 10 3/mcL LAB AEOS(LOINC) Eosinophil, Absolute 0.1 0.0-0.7 10 3/mcL LAB ABAS(LOINC) Basophil, Absolute 0.1 0.0-0.2 10 3/mcL Performed By: #### ANEU, MIL FF, TSH, CBC, FT4, GFR, BMP #### [id number] [place], [place] [address] #### [place] #### [place] [address] .NEUABS Collected: 9:53 AM Status: F Source: [facility] TYPE CODE TESTS RESULT OUT OF RANGE REFERENCE UNITS LAB ANEU(LOINC) Neutrophil, Absolute 3.5 2.3-8.1 10 3/mcL Performed By: #### ANEU, MIL FF, TSH, CBC, FT4, GFR, BMP #### [address] [address] #### PAL[place] #### [place] [address] BMP Collected: 12/16/2023 9:53 AM Status: F Source: [facility] TYPE CODE TESTS RESULT OUT OF RANGE REFERENCE UNITS LAB GLU(LOINC) Glucose Level 77 Low 83-110 mg/dL LAB NA(LOINC) Sodium Level 140 136-145 mmol/L LAB K(LOINC) Potassium Level 3.7 3.5-5.1 mmol/L LAB CL(LOINC) Chloride 102 98-107 mmol/L LAB CO2(LOINC) CO2 34 High 23-31 mmol/L LAB EBAL(LOINC) Electrolyte Balance 4.0 4.0-15.0 mEq/L LAB BUN(LOINC) BUN 19 High 7-18 mg/dL LAB CRE(LOINC) Creatinine Lvl (s) 0.73 0.55-1.02 mg/dL Result Comment: Testing perf ormed on Siemens Dimension EXL analyzer using a modified kinetic Torri technique. LAB BC(LOINC) BUN/Creatinine Ratio 26 7-27 ratio LAB CA(LOINC) Calcium Lvl 9.6 8.4-10.2 mg/dL Performed By: #### ANEU, MIL FF, TSH, CBC, FT4, GFR, BMP #### [address] [place], [place] [address] #### [place] #### [address] [address] TSH Collected: 4 9:53 AM Status: F Source: [facility] TYPE CODE TESTS RESULT OUT OF RANGE REFERENCE UNITS LAB TSH(LOINC) TSH 2.10 0.36-3.74 mcIU/mL Performed By: #### ANEU, MIL FF, TSH, CBC, FT4, GFR, BMP #### [address] [place], [place] [address] #### PALOMA #### [address] [address] FT4 Collected: 4 9:53 AM Status: F Source: [facility] TYPE CODE TESTS RESULT OUT OF RANGE REFERENCE UNITS LAB FT4(LOINC) Free T4 0.85 0.76-1.46 ng/dL Performed By: #### ANEU, MIL FF, TSH, CBC, FT4, GFR, BMP #### [address] [address] #### PALOMA #### [address] [address] .GFR Collected: 4 9:53 AM Status: F Source: [facility] TYPE CODE TESTS RESULT OUT OF RANGE REFERENCE UNITS LAB GFRAA(LOINC) GFR 93 ml/min/1. 73sqm Result Comment: GFR Population mean for , Non- Americans Ages 20-29 = 116 mL/min/1.73 sq.m. Ages 30-39 = 107 mL/min/1.73 sq.m. Ages 40-49 = 99 mL/min/1.73 sq.m. Ages 50-59 = 93 mL/min/1.73 sq.m. Ages 60-69 = 85 mL/min/1.73 sq.m. Ages 70+ = 75 mL/min/1.73 sq.m. Chronic Kidney Disease: Less than 60 mL/min/1.73 square meters End Stage Renal Disease: Less than 15 mL/min/1.73 square meters LAB GFRNO(LOINC) GFR Non- 76 ml/min/1. 73sqm Result Comment: GFR Population mean for , Non- Americans Ages 20-29 = 116 mL/min/1.73 sq.m. Ages 30-39 = 107 mL/min/1.73 sq.m. Ages 40-49 = 99 mL/min/1.73 sq.m. Ages 50-59 = 93 mL/min/1.73 sq.m. Ages 60-69 = 85 mL/min/1.73 sq.m. Ages 70+ = 75 mL/min/1.73 sq.m. Chronic Kidney Disease: Less than 60 mL/min/1.73 square meters End Stage Renal Disease: Less than 15 mL/min/1.73 square meters Performed By: #### ANEU, MIL FF, TSH, CBC, FT4, GFR, BMP #### [address] [address] #### PALOMA #### [place] [address] PALOMA Collected: 12/16/2023 9:53 AM Status: F Source: [facility] TYPE CODE TESTS RESULT OUT OF RANGE REFERENCE UNITS LAB PALOMA(LOINC) Cortisol Level 11.1 mcg/d L Result Comment: Cortisol AM Reference Range 6.5-26.0 mcg/dL Cortisol PM Reference Range 3.5-15.0 mcg/dL Performed By: #### ANEU, MIL FF, TSH, CBC, FT4, GFR, BMP #### [address] [address] #### [place] #### [place] [id number] ALLERGIES No Allergies Records Found ENCOUNTERS ADMIT/DISCHARGE ACCOUNT NUMBER ADMITTING ENCOUNTER CLASS LOCATION SOURCE 12/02/2024/12/07/19 25 [id number] Ambulatory [facility] 08/13/2024/08/18/19 [id number] Ambulatory [facility] :[facility] 05/28/2024/05/29/19 25 [id number] Ambulatory [facility] :[facility] 03/02/2024/03/06/20 24 [id number] Ambulatory [facility] :[facility] 02/03/2024/02/03/20 24 [id number] Ambulatory Building:[facility] 01/28/2024/01/28/20 24 [id number] Ambulatory Building:[facility] 01/26/2024/01/26/20 24 [id number] Ambulatory [facility] 01/01/2024/01/05/20 24 [id number] Ambulatory [facility]IN[facility] :[facility] 12/26/2023/12/26/19 24 [id number] Ambulatory [facility] :[facility] 12/26/2023/12/26/19 24 [id number] Ambulatory [facility] :[facility] 12/23/2023/12/23/19 24 [id number] Ambulatory Building:[facility] 12/16/2023/12/20/19 24 [id number] Ambulatory [facility]INBuilding :[facility] PAYERS ENCOUNTER GUARANTOR PAYER SUBSCRIBER SOURCE 12/02/2024 DANIEL AGUILA: [id number] [place] [address]~[email or web address]: (HP) Primary Insurance:[facility] Hospitaly Number: [id number] Date:0255-43-31Aorr Name:NPO [address], [place] [address]VI: DANIEL BARRETTB: [id number] [address] [place] [address]Gge: (HP) (WP) [facility] 08/13/2024 DANIEL ANTONYDOB: [id number] [place] [address]~[email or web address]: (HP) Primary Insurance:[facility] INSCOPolicy Number: [id number] Date:6743-08-38Mffd Name:[facility] M[facility] [address] [place] [address]QF: DANIEL MARTINBORNDOB: [id number] [address] [place] [address]Rjo: (HP) (WP) [facility] 05/28/2024 DANIEL ANTONYDOB: [id number] [place] [address]~[email or web address]: (HP) Primary Insurance:[facility] INSCOPolicy Number: [id number] Date:8729-12-48Cfuz Name:[facility] [address] [place] [address]AR: DANIEL MARTINBORNDOB: [id number] [address] [place] [address]Ong: (HP) (WP) [facility] 03/02/2024 DANIEL MARTINBORNDOB: [id number] [place] [address]~[email or web address]: (HP) Primary Insurance:[facility] INSCOPolicy Number: [id number] Date:5720-25-24Sogt Name:[facility] [id number] [address]NZ: DANIEL MARTINBORNDOB: [id number] [address] [place] [address]Mut: (HP) (WP) [facility] 02/03/2024 DANIEL MARTINBORNDOB: [id number] [place], [place] [address]Oqc: (HP) Primary Insurance:[employer] MEDICARE ADVANTAGEPolicy Number: [id number] Date:2021-03-17 DANIEL Berry OSBORNDOB: [id number] [address] [place] [address] [facility] 01/28/2024 DANIEL Berry OSBORNDOB: [id number] [place], [place] [address]Llb: (HP) Primary Insurance:[employer] MEDICARE ADVANTAGEPolicy Number: [id number] Date:2021-03-17 DANIEL ANTONYDOB: [id number] [address] [place] [address] [facility] 01/26/2024 DANIEL Berry OSBORNDOB: [id number] [place] [address]~[email or web address]: (HP) Primary Insurance:[facility] INSCOPolicy Number: [id number] Date:8714-32-91Whbm Name:[address], [place] [address]EI: DANIEL Berry OSBORNDOB: [id number] [address] [place] [address]Hue: (HP) (WP) [facility] 01/01/2024 DANIEL MARTINBORNDOB: [id number] [place] [address]~[email or web address]: (HP) Primary Insurance:[facility] [employer] INSCOPolicy Number: [id number] Date:5839-33-48Bbxt Name:[place] [id number]: DANIEL ANTONYDOB: [id number] [address] [place] [address]Pho: (HP) (WP) [facility] 12/26/2023 DANEIL ANTONYDOB: [id number] [place] [address]~[email or web address]: (HP) Primary Insurance:[place] [employer] INSCOPolicy Number: [id number] Date:6007-39-31Qbqr Name:[place] [address]PR: DANIEL ANTONYDOB: [id number] [address] [place] [address]Lnq: (HP) (WP) [facility] 12/26/2023 DANIEL ANTONYDOB: [id number] [place] [address]~[email or web address]: (HP) Primary Insurance:[place] [employer] INSCOPolicy Number: [id number] Date:1910-66-04Angx Name:[place] [id number]: DANIEL ANTONYDOB: [id number] [address] [place] [address]Aaq: (HP) (WP) [facility] 12/23/2023 DANIEL BARRETTB: [id number] [place], [place] [address]Aqc: (HP) Primary Insurance:[employer] MEDICARE ADVANTAGEPolicy Number: [id number] Date:2021-03-17 DANIEL BARRETTB: [id number] [address] [place] [address] [facility] 12/16/2023 DANIEL BARRETTB: [id number] [place] [address]~[email or web address]: (HP) Primary Insurance:[facility] INSCOPolicy Number: [id number] Date:0494-43-78Qtvi Name:SIL[address]RE [address] [address], [place] [address]XQ: DANIEL BARRETTB: [id number] [address] [place] [address]Ayg: (HP) (WP) [facility]
--- NOTE | 2024-12-14 06:53 | ECHOD_ITS ---
Reason For Study Reason For Study: GALLO Procedure This was a 2D Doppler, Color Flow transthoracic echocardiogram. Exam performed in department. Left Ventricle Normal LV size. Left ventricular systolic function is normal. The left ventricular ejection fraction is 65 %. Stage 1 diastolic dysfunction. No regional wall motion abnormalities noted. Right Ventricle Normal RV size. Normal systolic function. Atria Normal left atrium. Normal right atrium. Mitral Valve Normal mitral valve. Mild (1+) eccentric mitral valve insufficiency. Tricuspid Valve Normal tricuspid valve. Mild (1+) tricuspid valve insufficiency. Pulmonary artery systolic pressure is 30 mmHg. Aortic Valve Trisinus/trileaflet aortic valve. Trivial aortic valve insufficiency. Pulmonic Valve Normal pulmonic valve. Great Vessels Normal aortic root. The pulmonary artery is normal size. Inferior vena cava collapse with respiration. Pericardium/Pleural No pericardial effusion. MMode/2D Measurements & Calculations LVIDd: 4.5 cm IVSd: 0.95 cm LVOT diam: 2.2 cm LVIDs: 2.4 cm LVPWd: 0.94 cm LVOT area: 3.9 cm2 RVDd: 3.2 cm FS: 46.2 % asc Aorta Diam: 3.5 cm LAV(MOD-bp): 40.2 ml LVAd ap4: 19.8 cm2 LAV(MOD-bp) Indexed: 23.3 ml/m2 LVLd ap4: 7.3 cm LAV(MOD-sp2): 41.0 ml EDV(MOD-sp4): 45.0 ml LAV(MOD-sp4): 34.2 ml EDV(sp4-el): 45.7 ml LVAs ap4: 10.1 cm2 LVLs ap4: 6.5 cm ESV(MOD-sp4): 14.1 ml ESV(sp4-el): 13.2 ml EF(MOD-sp4): 68.6 % EF(sp4-el): 71.1 % LVAd ap2: 19.3 cm2 SV(MOD-sp4): 30.9 ml SV(MOD-sp2): 25.6 ml LVLd ap2: 7.6 cm SI(MOD-sp4): 17.9 ml/m2 SI(MOD-sp2): 14.8 ml/m2 EDV(MOD-sp2): 40.3 ml EDV(sp2-el): 41.2 ml LVAs ap2: 10.6 cm2 LVLs ap2: 6.6 cm ESV(MOD-sp2): 14.7 ml ESV(sp2-el): 14.5 ml EF(MOD-sp2): 63.5 % SV(sp4-el): 32.4 ml Ao sinus diam: 3.[address] Junction: 2.7 cm LA dimension(2D): 3.8 cm LA A4 area: 14.7 cm2 RA A4 area: 11.4 cm2 TAPSE: 2.0 cm Time Measurements MV dec time: 0.27 sec Doppler Measurements & Calculations MV E max fortunato: 76.2 cm/sec Lat Peak E' Fortunato: 8.0 cm/sec Med Peak E' Fortunato: 8.7 cm/sec MV A max fortunato: 111.3 cm/sec E/E' lat: 9.5 E/E' med: 8.8 MV E/A: 0.68 MV dec slope: 286.8 cm/sec2 Ao V2 max: 129.9 cm/sec AI max fortunato: 454.7 cm/sec Ao max P.8 mmHg AI max P.7 mmHg Ao V2 mean: 94.9 cm/sec AI dec slope: 167.6 cm/sec2 Ao mean P.8 mmHg AI P1/2t: 794.5 msec Ao V2 VTI: 31.4 cm AV (velocity ratio): 0.86 ANNY(I,D): 3.3 cm2 ANNY(V,D): 2.9 cm2 LV V1 max: 98.4 cm/sec SV(LVOT): 105.1 ml PA V2 max: 92.5 cm/sec LV V1 max P.9 mmHg LV V1 mean P.0 mmHg LV V1 mean: 65.8 cm/sec LV V1 VTI: 27.0 cm TR max fortunato: 258.6 cm/sec TR max P.0 mmHg ECHO/Echo Complete Interpretation Summary Normal LV size. Left ventricular systolic function is normal. The left ventricular ejection fraction is 65 %. Mild (1+) eccentric mitral valve insufficiency. Stage 1 diastolic dysfunction. Pulmonary artery systolic pressure is 30 mmHg. Ordering Physician: Joleen Tejeda Referring Physician: Joleen Tejeda Performed By: Xuan Camarena RDCS
--- NOTE | 2024-12-14 19:12 | STRESSREP ---
Stress Test Report Pharmacologic myocardial perfusion stress test. 84-year-old female with a history of dyspnea on exertion. Resting EKG demonstrates normal sinus rhythm with a rate of 60 bpm. Resting blood pressure is 142/72 mmHg. 0.4 mg of regadenoson was infused per usual protocol followed by rapid intravenous saline flush injection. Continuous EKG monitoring was performed. The maximum heart rate was 98 bpm which was 71% of max impacted heart rate the maximum workload was 1 metabolic equivalent. At rest there were no ST or T wave changes noted to suggest ischemia and at peak infusion nonspecific ST changes were noted which did not meet the criteria for ischemia. No clinical angina is noted. The final blood pressure was 154/68 mmHg. Myocardial perfusion protocol. 12 mCi of technetium 99m sestamibi was injected at rest. 0.4 mg of regadenoson was infused per usual protocol. At peak infusion 35.7 mCi of technetium 99m sestamibi was injected stress images were obtained stress and rest images were reconstructed and compared in the short axis vertical long and horizontal long axis. Gated images were also obtained. Perfusion SPECT analysis: Review of the stress images demonstrate normal uptake of tracer noted in all areas of the myocardium. The resting images similar demonstrated normal uptake of tracer noted in all areas of the myocardium. No areas of reversibility are noted to suggest ischemia and no previous infarct is noted. Gated SPECT analysis: The gated ejection fraction is 80%. Conclusion: Normal pharmacologic myocardial perfusion stress test. Preserved ejection fraction.
== END | disposition home or self-care (01) ==
PROVIDERS: PCP Student in an Organized Health Care Education/Training Program; Referring Provider Nurse Practitioner Gerontology; Visit Provider Nurse Practitioner Gerontology
DX: R06.02 Shortness of breath (principal); R06.09 Other forms of dyspnea; R53.83 Other fatigue
CPT/HCPCS: 78452; 93017; 93306; A9500; A4216; J2785